=== PATIENT | female | born 2000 | race Caucasian/White ===

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

== ENCOUNTER 2022-04-09 19:21 | Emergency (ER) | payer OTHER ==
--- OUTSIDE RECORDS SUMMARY | 2022-04-09 19:27 | XMS REPORT | Continuity of Care Document ---
:2002 Author Organization Formerly [facility] t Address [address] [place] [address] Care Team Providers Name Role Phone Harrison Grissom Attending Clinician [phone] Faviola Alarcon Attending Clinician Unavailable Matt Urrutia Attending Clinician Unavailable ELIZABETH CAMEJO Attending Clinician Unavailable Paulette Villasenor Attending Clinician Unavailable NANCY SAGASTUME Attending Clinician Unavailable Deann Gonsalves Attending Clinician Unavailable Brandi Nathan Attending Clinician Unavailable Danette Gutierres Attending Clinician Unavailable Danica Britton Attending Clinician [phone] Yeni Jacques Attending Clinician [phone] Mary Alcala Attending Clinician Unavailable Antolin Brown Attending Clinician [phone] ADULT, HEMOPHILIA Attending Clinician Unavailable Status, Fax Attending Clinician Unavailable Sourav Ocampo Attending Clinician Unavailable Sangeeta Mckeon Attending Clinician Unavailable Adriana Donis Attending Clinician Unavailable Tenzin Smiley Attending Clinician Unavailable Carisa Emerson Attending Clinician Unavailable Enma Sanabria Attending Clinician Unavailable Sujey Correia Attending Clinician Unavailable SARAH DOUGLAS M.D. Attending Clinician Unavailable Kenyatta Tolliver Attending Clinician Unavailable Noemi Adkins Attending Clinician [phone] Ricarda Pope Attending Clinician Unavailable Adriana Moya Attending Clinician Unavailable Leandra Hopkins Attending Clinician Unavailable ROSE BEAVERS Attending Clinician Unavailable Luiz Salomon Attending Clinician Unavailable KATRIN FANG M.D. Attending Clinician Unavailable BELLA CHAPMAN Attending Clinician Unavailable SANGEETA ALARCON M.D. Attending Clinician Unavailable ELIZABETH CAMEJO Admitting Clinician Unavailable NANCY SAGASTUME Admitting Clinician Unavailable ROSE BEAVERS Admitting Clinician Unavailable ObYeni swann Jewell Unavailable [phone] Harrison Grissom Unavailable [phone] Problems Condition Condition Condition Status Onset Resolution Last Treating Co mments Source Name Details Category Date Date Treatment Clinician Date Gastroente Condition Active 2020-09-30 Braden Jacques ritis, 09-30 10:02:36 Yeni Krishnan viral, 00:00: Jewell ty acute 00 Health Hypoglycem Condition Active 2020-09-30 Braden Grissom ia, 09-25 09:56:03 Harrison Krishnan unspecifie 00:00: ty d 00 Health Acute Condition Active 2020-09-04 Chris Grissom acy pharyngiti 09-04 12:25:29 Harrison Fink uni s 00:00: ty 00 Health Screening Condition Active 2020-09-04 Braden Grissom for 09-04 12:25:29 Harrison Krishnan infectious 00:00: ty disease 00 Health Headaches Condition Active 2020-09-04 Braden Grissom 09-04 12:25:29 Harrison Krishnan 00:00: ty 00 Health Abnormal Condition Active 2020-08-07 [place] Grissom egacy weight 08-07 14:42:37 Harrison Krishnan gain 00:00: ty 00 Health Back pain Condition Active 2019-062020-04-06 Braden Grissom 06-06 09:30:01 Harrison Krishnan 00:00: ty 00 Health Contracept Condition Active 2019-062020-04-06 GrissomBraden macias ion 02 09:30:01 Harrison Krishnan management 00:00: ty 00 Health Hx of Condition Active 2019-062020-04-06 Praveena, Leg acy ovarian 02 09:30:01 Harrison Krishnan cyst 00:00: ty 00 Health BMI Condition Active 2019-062020-04-06 Praveena, Leg acy 31.0-31.9 0-22 09:26:54 Harrison Pantoja ni 00:00: ty 00 Health Obesity Condition Active 2019-062020-04-06 Praveena [place] 0-22 09:26:54 Harrison Krishnan 00:00: ty 00 Health Menorrhagi Condition Active 2019-062020-03-26 Chris Grissomjefferson a 0-22 20:39:09 Harrison Krishnan 00:00: ty 00 Health Hearing Condition Active 2019-062020-03-26 Grissom, [place] loss, 0-22 20:39:09 Harrison Krishnan right ear 00:00: ty 00 Health Knee pain, Condition Active 2019-062020-03-26 GrissomChris maciasacy right, 0-22 20:39:09 Harrison Krishnan chronic 00:00: ty 00 Health Transfusio Transfusio Problem Resolve UT n history n history d Phys ici ans Iron Iron Problem Active UT deficiency deficiency Ph ysici anemia anemia ans Abnormal Abnormal Problem Active UT uterine uterine Physici bleeding bleeding ans Adolescent Adolescent Problem Active U T dysmenorrh dysmenorrh Ph ysici ea ea ans History of Past Illness Condition Condition Condition Status Onset Resolution Last Treating Co mments Source Name Details Category Date Date Treatment Clinician Date Paronychia Condition Inactiv 2020-09-04 2020-09-04 Braden Grissom , great e 3-11 00:00:00 12:25:29 Harrison Pantoja ni toe 00:00: ty 00 Health Abdominal Condition Inactiv 2020-09-04 2020-09-04 Braden Grissom pain, e 3-05 00:00:00 12:25:29 Harrison Olsen i acute 00:00: ty 00 Health Vomiting Condition Inactiv 2020-08-13 2020-08-13 Braden Grissom e 3-05 00:00:00 16:47:33 Harrison Pretty i 00:00: ty 00 Health Exposure Condition [...] Clinician BLUE DYE Drug Active Low hives Braden allergy Criticali -11 Commun i (disorde ty 00:00: ty r) 00 Health No Known NA Active [facility] 09[facility]: l [facility] ([facility] No Known NA [facility] 21:15: l 13 ([facility]) No Known NA Active [facility] 17:38: l 15 ([facility]) No Known NA [facility] 15:12: l 04 ([facility]) No Known NA Active [facility] 07-17 [facility] 14:08: l 20 ([facility]) No Known NA Active [facility] 07[facility]16 [facility] 22:00: l 58 ([facility]) No Known NA Active [facility] 2-11 [facility] 16:45: l 34 ([facility]) No Known NA Active [facility] 2- [facility]ospita [facility] 15:51: l 27 ([facility]) No Known NA Active [facility] 01-19 [facility]ospita [facility] 12:49: l 23 ([facility]) No Known NA Active [facility] 01-16 [facility]osp[facility] 21:22: l 22 ([facility]) No Known NA Active [facility] 01-16 [facility] 19:26: l 38 ([facility]) No Known NA Active 2019- [facility] 17:11: l 12 ([facility]) Family History Family Member Diagnosis Comments Start Date Stop Date Source Grandparent Family history of [facility] thromboembolic disease aunt Family history of [facility] thromboembolic disease Mother Family history of Bleeding [facility] Social History Social Habit Start Date Stop Date Quantity Comments Source if the patient is 2020-09-30 2020-09-30 No Legacy using/has used a 09:04:08 09:04:08 Communit y vaping item, Health Current, Former, Never Used, Not asked passive cigarette 2020-09-30 2020-09-30 No Legacy smoke exposure 09:04:08 09:04:08 [facility] is there any chance 2020-09-30 2020-09-30 No Legac y that you could be 09:04:08 09:04:08 Communi ty ? Health PHQ2 Questionairre 2020-09-30 2020-09-30 Legacy Score 09:04:08 09:04:08 [facility] sexual orientation 2020-09-30 2020-09-30 Heterosexual Lega cy 09:04:08 09:04:08 [facility] time of call 2020-09-29 2020-09-29 09/29/2020 3:22 PM Lega cy 15:22:32 15:22:32 [facility] albumin, serum 2020-09-24 2020-09-24 4.8 g/dL Legacy 09:21:00 09:21:00 [facility] social history 2020-09-04 2020-09-04 reviewed - no Legacy reviewed E&M 11:10:57 11:10:57 changes required Commun [facility] Health smoking, advice to 2020-04-22 2020-04-22 Yes Legacy quit 08:26:14 08:26:14 [facility] Weight Management 2020-04-22 2020-04-22 Follow Up Done Leg acy Counseling Provided 08:26:14 08[facility]26:[facility] E&M 2020-03-26 2020-03-26 Lives in group Alissa rivas 12:41:26 12:41:26 home ([facility]) with her Health twin sister and younger sister. Ever had sexual 2020-03-26 2020-03-26 No Legacy intercourse? 12:41:26 12:41:26 [facility] drug use 2020-02-14 2020-02-14 Never Legacy 14:28:43 14:28:43 [facility] alcohol use 2020-02-14 2020-02-14 Never Legacy 14:28:43 14:28:43 [facility] patient considered 2020-02-14 2020-02-14 No Legacy to be homeless 14:28:43 14:28:43 [facility] Smoking Status Start Date Stop Date Source Never smoked tobacco (finding) L egacy [facility] Medications Ordered Filled Start Stop Current Ordering Indication Dosage Frequency Signature Comments Components Source Medication Medication Date Date Medication? Clinician (SIG) Name Name (FAMOTIDINE Yes Yeni 1 tab po Legacy ) 20 MG 4-28 Jewell bid for 2 Commu ni TABS 00:00: Obenza weeks as ty 00 needed of Health dyspepsia (FLUTICASON Yes Harrison 2 spray to Legacy E 4-02 Grissom each Communi PROPIONATE) 00:00: nostril ty 50 MCG/ACT 00 once a day Hea lth SUSP (CETIRIZINE Yes Harrison 1 1xD 1 tab by Legacy HCL) 10 MG 4-02 Grissom mouth once Co mmuni TABS 00:00: a day ty 00 Health (ONDANSETRO Yes Yeni 1 tab Leg acy N) 8 MG 3-11 Jewell dissolve Commun i TBDP 00:00: Obenza on tongue ty 00 every 8 Health hours as needed for vomiting (CLONIDINE 2021-0 Yes 1 1xD nightly Lega cy HCL) 0.1 MG 3-11 Communi TABS 00:00: ty 00 Health ZYPREXA Yes 1 1xD take one Legacy (OLANZAPINE 11 tab by Commun i ) 2.5 MG 00:00: mouth once ty TABS 00 a day Health FLUOXETINE Yes 20 mg Legacy HCL 3-11 orally Communi (FLUOXETINE 00:00: once a day ty HCL TABS) 00 Health TABS (OMEPRAZOLE 2020- No Harrison 20mg 1xD 20 mg by Legacy ) 20 MG 08-13 Grissom mouth once [...] 1 tab by Legacy N) 8 MG 0-04-06 Grissom mouth Communi TBDP 00:00: 00:00 every 8 ty 00 :00 hours as Health needed for vomiting Iron 325 Iron 325 Yes SARAH Take one UT (65 Fe) MG (65 Fe) MG 7- BEYDA M.D. tablet by Physici Oral Tablet Oral Tablet 00:00: mouth ans 00 twice a day with food. Do not take with dairy products. Take for total of 6 months MedroxyPROG MedroxyPROG Yes SARAH INJECT UT ESTERone ESTERone 7-29 BEYDA M.D. INTRAMUSCU Physici Acetate 150 Acetate 150 00:00: LARLY ans MG/ML MG/ML 00 DIRECTED. Intramuscul Intramuscul ar ar Suspension Suspension Iron TABS Iron TABS Yes M.D. [facility] ans Immunizations Ordered Immunization Filled Immunization [...] blood pressure, 2020-09-30 09:04:08 75 mm[Hg] Legac y Community diastolic Health blood pressure, 2020-09-30 09:04:08 105 mm[Hg] Legac y Community systolic Health respiratory rate E&M 2020-09-30 09:04:08 20 /min [facility] pulse rate 2020-09-30 09:04:08 104 /min [facility] temperature site 2020-09-30 09:04:08 axillary [facility] Health temperature E&M 2020-09-30 09:04:08 98.1 [degF] Legac [facility] Health weight percentile 2020-09-30 09:04:08 98 Leg [facility] weight in kilograms 2020-09-30 09:04:08 96.7 kg L [facility] E& Health weight E&M 2020-09-30 09:04:08 212.74 [lb_av] [facility] height percentile 2020-09-30 09:04:08 37 Leg [facility] height E&M 2020-09-30 09:04:08 63.39 [in_i] [facility] 2020-08-13 16:05:02 98 /[facility] respiratory rate E&M 2020-08-13 16:05:02 20 /min [facility] temperature E&M 2020-08-13 16:05:02 98.8 [degF] [facility] weight E&M 2020-08-13 16:05:02 210 [lb_av] [facility] weight percentile 2020-08-13 16:05:02 98 [facility] weight in kilograms 2020-08-13 16:05:02 95.45 kg L [facility] E& Health temperature site 2020-08-07 13:09:45 oral [facility] Health pulse rate 2020-08-07 13:09:45 100 /min [facility] blood pressure, 2020-08-07 13:09:45 81 mm[Hg] Legac [facility] diastolic Health blood pressure, 2020-08-07 13:09:45 111 mm[Hg] Legac [facility] systolic Health respiratory rate E&M 2020-08-07 13:09:45 20 /min [facility] temperature E&M 2020-08-07 13:09:45 98.8 [degF] [facility], 2020-08-07 13:09:45 98 /min [facility] oximetry Health height percentile 2020-08-07 13:09:45 37 Leg [facility] Health height E&M 2020-08-07 13:09:45 63.39 [in_i] [facility] weight percentile 2020-08-07 13:09:45 98 Leg [facility] Health weight in kilograms 2020-08-07 13:09:45 96.1 kg L [facility] E& Health weight E&M 2020-08-07 13:09:45 211.42 [lb_av] [facility] Health temperature E&M 2020-06-02 08:35:53 97.2 [degF] [facility] temperature E&M 2020-04-22 08:26:14 97.1 [degF] [facility] temperature [facility] 2020-04-22 08:26:14 [facility] 2020-04-13 08:40:49 97.8 [degF] [facility] height percentile 2020-04-06 08:58:16 37 Leg [facility] Health height E&M 2020-04-06 08:58:16 63.39 [in_i] [facility] weight percentile 2020-04-06 08:58:16 96 Leg [facility] weight in kilograms 2020-04-06 08:58:16 82.8 kg L [facility] E& Health weight E&M 2020-04-06 08:58:16 182.16 [lb_av] [facility] blood pressure, 2020-04-06 08:58:16 77 mm[Hg] [facility] diastolic Health blood pressure, 2020-04-06 08:58:16 119 mm[Hg] [facility] systolic Health oxygen saturation, 2020-04-06 08:58:16 98 /min Le [facility] oximetry Health respiratory rate E&M 2020-04-06 08:58:16 20 /min [facility] Health pulse rate 2020-04-06 08:58:16 106 /min [facility] C [facility] Health temperature E&M 2020-04-06 08:58:16 98.5 [degF] [facility] temperature site 2020-04-06 08:58:16 oral [facility] Health pulse rate 2020-03-26 12:41:26 115 /min [facility] blood pressure, 2020-03-26 12:41:26 68 mm[Hg] [facility] diastolic Health blood pressure, 2020-03-26 12:41:26 104 mm[Hg] [facility] systolic Health respiratory rate E&M 2020-03-26 12:41:26 20 /min [facility] oxygen saturation, 2020-03-26 12:41:26 97 /min [facility] oximetry Health temperature E&M 2020-03-26 12:41:26 98.5 [degF] [facility] height percentile 2020-03-26 12:41:26 21 [facility] height E&M 2020-03-26 12:41:26 62.20 [in_i] [facility] weight percentile 2020-03-26 12:41:26 94 [facility] weight in kilograms 2020-03-26 12:41:26 78.8 kg L [facility] E& Health weight E&M 2020-03-26 12:41:26 173.36 [lb_av] [facility] temperature site 2020-03-26 12:41:[address] [facility] [address] Procedures Procedure Date / Time Performing Clinician Source Performed Urinalysis - Dip only - 2020-10-08 01:42:26 Yeni Jacques [facility] Urinalysis - - 2020-09-30 09:18:47 Yeni Jacques [facility] Urinalysis - - 2020-08-13 16:47:28 Harrison Grissom [facility] Health Ondansetron (Zofran) 2020-08-07 13:43:43 Harrison Grissom [facility] oral soln Health Urinalysis - - 2020-08-07 13:20:09 Harrison Grissom acy [facility] Health Urinalysis - Dip only - 2020-08-07 13:20:09 Harrison Grissom cy [facility] [Q] MISCELLANEOUS 2020-05-05 00:00:00 [facility] ans REFERRAL Urinalysis - - 2020-04-06 09:53:44 Harrison Grissomy [facility] General Patient 2020-04-06 09:26:54 Harrison Grissom [facility] Urinalysis - - 2020-04-06 09:17:48 Harrison Grissom [facility] Rapid Strep - In House 2020-03-26 13:39:47 Praveena Harrisonshanthi Lorenzo [facility] Ondansetron (Zofran) 2020-03-26 13:39:47 Harrison Grissom [facility] oral soln Health BLOOD COUNT HEMOGLOBIN 2020-03-26 13:37:20 GrissomHarrison macias Bj [facility] [L] PFA Platelet 2020-01-01 00:00:00 [facility] ns Function [QL] CBC (INCLUDES 2020-01-01 00:00:00 [facility] DIFF/PLT) [L] von Willebrand 2020-01-01 00:00:00 [facility] Disease Profile [QL] COAG FACTOR VIII 2020-01-01 00:00:00 [facility] ACTIVITY [L] PT Mixing Studies 2020-01-01 00:00:00 [facility] [L] PTT LA 2020-01-01 00:00:00 [facility] s [QL] FIBRINOGEN 2020-01-01 00:00:00 [facility] ACTIVITY, CLAUSS Plan of Care Planned Activity Planned Date Details Comments Source Future Scheduled Test 2020-05-13 [Q] MISCELLANEOUS [facility] 00:00:00 REFERRAL [code = [Q] MISCELLANEOUS REFERRAL] Future Scheduled Test 2020-05-13 [Q] MISCELLANEOUS [facility] 00:00:00 REFERRAL [code = [Q] MISCELLANEOUS REFERRAL] Diagnostic Test 2020-01-01 [QL] FIBRINOGEN [facility] Pending 00:00:00 ACTIVITY, CLAUSS [code = [QL] FIBRINOGEN ACTIVITY, CLAUSS] Diagnostic Test 2020-01-01 [L] PFA Platelet [facility] Pending 00:00:00 Function [code = [L] PFA Platelet Function] Diagnostic Test 2020-01-01 [QL] CBC (INCLUDES [facility] Pending 00:00:00 DIFF/PLT) [code = [QL] CBC (INCLUDES DIFF/PLT)] Diagnostic Test 2020-01-01 [L] von Willebrand [facility] Pending 00:00:00 Disease Profile [code = [L] von Willebrand Disease Profile] Diagnostic Test 2020-01-01 [QL] COAG FACTOR VIII [facility] Pending 00:00:00 ACTIVITY [code = [QL] COAG FACTOR VIII ACTIVITY] Diagnostic Test 2020-01-01 [L] PT Mixing Studies [facility] Pending 00:00:00 [code = [L] PT Mixing Studies] Diagnostic Test 2020-01-01 [L] PTT LA [code = [L] [facility] Pending 00:00:00 PTT LA] Diagnostic Test 2020-01-01 [QL] FIBRINOGEN [facility] Pending 00:00:00 ACTIVITY, CLAUSS [code = [QL] FIBRINOGEN ACTIVITY, CLAUSS] Diagnostic Test 2020-01-01 [L] PFA Platelet [facility] Pending 00:00:00 Function [code = [L] PFA Platelet Function] Diagnostic Test 2020-01-01 [QL] CBC (INCLUDES [facility] Pending 00:00:00 DIFF/PLT) [code = [QL] CBC (INCLUDES DIFF/PLT)] Diagnostic Test 2020-01-01 [L] von Willebrand [facility] Pending 00:00:00 Disease Profile [code = [L] von Willebrand Disease Profile] Diagnostic Test 2020-01-01 [QL] COAG FACTOR VIII [facility] Pending 00:00:00 ACTIVITY [code = [QL] COAG FACTOR VIII ACTIVITY] Diagnostic Test 2020-01-01 [L] PT Mixing Studies [facility] Pending 00:00:00 [code = [L] PT Mixing Studies] Diagnostic Test 2020-01-01 [L] PTT LA [code = [L] [facility] Pending 00:00:00 PTT LA] Diagnostic Test 2020-01-01 [QL] FIBRINOGEN [facility] Pending 00:00:00 ACTIVITY, CLAUSS [code = [QL] FIBRINOGEN ACTIVITY, CLAUSS] Diagnostic Test 2020-01-01 [L] PFA Platelet [facility] Pending 00:00:00 Function [code = [L] PFA Platelet Function] Diagnostic Test 2020-01-01 [QL] CBC (INCLUDES [facility] Pending 00:00:00 DIFF/PLT) [code = [QL] CBC (INCLUDES DIFF/PLT)] Diagnostic Test 2020-01-01 [L] von Willebrand [facility] Pending 00:00:00 Disease Profile [code = [L] von Willebrand Disease Profile] Diagnostic Test 2020-01-01 [QL] COAG FACTOR VIII [facility] Pending 00:00:00 ACTIVITY [code = [QL] COAG FACTOR VIII ACTIVITY] Diagnostic Test 2020-01-01 [L] PT Mixing Studies [facility] Pending 00:00:00 [code = [L] PT Mixing Studies] Diagnostic Test 2020-01-01 [L] PTT LA [code = [L] [facility] Pending 00:00:00 PTT LA] Diagnostic Test 2020-01-01 [QL] FIBRINOGEN [facility] Pending 00:00:00 ACTIVITY, CLAUSS [code = [QL] FIBRINOGEN ACTIVITY, CLAUSS] Diagnostic Test 2020-01-01 [L] PFA Platelet [facility] Pending 00:00:00 Function [code = [L] PFA Platelet Function] Diagnostic Test 2020-01-01 [QL] CBC (INCLUDES [facility] Pending 00:00:00 DIFF/PLT) [code = [QL] CBC (INCLUDES DIFF/PLT)] Diagnostic Test 2020-01-01 [L] von Willebrand [facility] Pending 00:00:00 Disease Profile [code = [L] von Willebrand Disease Profile] Diagnostic Test 2020-01-01 [QL] COAG FACTOR VIII [facility] Pending 00:00:00 ACTIVITY [code = [QL] COAG FACTOR VIII ACTIVITY] Diagnostic Test 2020-01-01 [L] PT Mixing Studies [facility] Pending 00:00:00 [code = [L] PT Mixing Studies] Diagnostic Test 2020-01-01 [L] PTT LA [code = [L] [facility] Pending 00:00:00 PTT LA] Encounters Start End Encounter Admission Attending Care Care Encounter Source Date/Time Date/Time Type Type Clinicians Facility Department ID 2020-09-04 2020-09-04 Office Harrison Grissom [facility] Enco unter/ Legacy 00:00:00 00:00:00 Visit Faviola Alarcon 19 [id number] Matt Avelar [id number] [facility] 2020-08-07 2020-08-07 Emergency HO, [facility] QER [id number] [id number]- [facility] 15:11:00 15:11:00 [id number] Hospi ta l ([facility]) 2020-08-07 2020-08-07 Office PraveenaPIERCE LC Encounter/ Legacy 00:00:00 00:00:00 Visit Harrison [id number] Com abdirahman [id number] ty Health 2020-08-07 2020-08-07 Office PraveenaGARRY LC Encounter/ Legacy 00:00:00 00:00:00 Visit Harrison [id number] Com abdirahman [id number] ty Health 2020-08-07 2020-08-07 [facility] 00:00:00 00:00:00 Visit Paulette Villasenor [id number] Communi [id number] [facility] 2020-07-16 2020-07-16 Emergency NANCY SAGASTUME AL[facility] [id number]- [facility] 15:51:00 15:51:00 [id number] Hospi ta l ([facility]) 2020-07-16 2020-07-16 Office [facility] Legacy 00:00:00 00:00:00 Visit Deann Gonsalves [id number] Brandi Vargas [id number] [facility] 2020-06-04 2020-06-04 Office GARRY Britton Encounter/ Legacy 00:00:00 00:00:00 Visit Danica [id number] Com abdirahman [id number] [facility] 2020-06-02 2020-06-02 Office Yeni Jacques LC Encounter/ Legacy 00:00:00 00:00:00 Visit Danica Britton [id number] Communi [id number] [facility] 2020-06-02 2020-06-02 Office GARRY Grissom LC Encounter/ Legacy 00:00:00 00:00:00 Visit Harrison [id number] Com abdirahman [id number] [facility] 2020-06-02 2020-06-02 Office Yeni Jacques [facility] Encounter/ Legacy 00:00:00 00:00:00 Visit Danica Britton [id number] 57 Mary Fenton [id number] [facility] 2020-06-02 2020-06-02 [facility] 00:00:00 00:00:00 Visit Danica [id number] Com abdirahman [id number] ty Health 2020-05-18 2020-05-18 Office Abu Sulb, [facility] Encounte r/ Legacy 00:00:00 00:00:00 Visit mad [id number] Com abdirahman [id number] Health 2020-05-13 2020-05-13 Appointmen ADULT, UTP UTP [id number] UT 10:00:00 10:00:00 t; ADULT, HEMOPHILIA P hysici HEMOPHILIA ans 2020-05-13 2020-05-13 Office Status, Fax [facility] Encoun ter/ Legacy 00:00:00 00:00:00 Visit [id number] Com abdirahman [id number] ty Health 2020-05-13 2020-05-13 Office Status, Fax [facility] Encoun ter/ Legacy 00:00:00 00:00:00 Visit [id number] Com abdirahman [id number] ty Health 2020-05-13 2020-05-13 Office Status, Fax [facility] Encoun ter/ Legacy 00:00:00 00:00:00 Visit [id number] Com abdirahman [id number] ty Health 2020-05-13 2020-05-13 Office Status, Fax [facility] Encoun ter/ Legacy 00:00:00 00:00:00 Visit [id number] Com abdirahman [id number] ty Health 2020-05-13 2020-05-13 Office Status, Fax [facility] Encoun ter/ Legacy 00:00:00 00:00:00 Visit [id number] Com abdirahman [id number] ty Health 2020-04-27 2020-04-27 Office Abu Sulb, [facility] Encounte r/ Legacy 00:00:00 00:00:00 Visit Ahmad [id number] Com abdirahman [id number] ty Health 2020-04-22 2020-04-22 Office Abu Sulb, [facility] Encounte r/ Legacy 00:00:00 00:00:00 Visit Antolin [id number] Com abdirahman [id number] Health 2020-04-22 2020-04-22 Office Abu Sulb, [facility] En counter/ Legacy 00:00:00 00:00:00 Visit Sourav Ocampo [id number] Mary Fenton 692466 ty Health 2020-04-22 2020-04-22 Office GARRY Britton Encounter/ Legacy 00:00:00 00:00:00 Visit Danica [id number] Com abdirahman 674363 ty Health 2020-04-20 2020-04-20 Office GARRY Brown Encounte r/ Legacy 00:00:00 00:00:00 Visit Antolin [id number] Com abdirahman 978871 ty Health 2020-04-15 2020-04-15 Office GARRY Grissom Encounter/ Legacy 00:00:00 00:00:00 Visit Harrison [id number] Com abdirahman 000405 ty Health 2020-04-15 2020-04-15 Office GARRY Britton Encounter/ Legacy 00:00:00 00:00:00 Visit Danica [id number] Com abdirahman 326881 ty Health 2020-04-14 2020-04-14 Office GARRY Grissom Encounter/ Legacy 00:00:00 00:00:00 Visit Harrison [id number] Com abdirahman 437830 ty Health 2020-04-13 2020-04-13 Office GARRY Grissom Encounter/ Legacy 00:00:00 00:00:00 Visit Harrison [id number] Com abdirahman 596164 ty Health 2020-04-13 2020-04-13 Office Harrison Grissom Enco unter/ Legacy 00:00:00 00:00:00 Visit Danica Britton [id number] Communi 642461 ty Health 2020-04-13 2020-04-13 Office GARRY Grissom Encounter/ Legacy 00:00:00 00:00:00 Visit Harrison [id number] Com abdirahman 690833 ty Health 2020-04-09 2020-04-09 Office GARRY Grissom Encounter/ Legacy 00:00:00 00:00:00 Visit Harrison [id number] Com abdirahman 220337 ty Health 2020-04-06 2020-04-06 Office GARRY Grissom Encounter/ Legacy 00:00:00 00:00:00 Visit Harrison [id number] Com abdirahman 574847 ty Health 2020-04-06 2020-04-06 Office Grissom, LC LC Encounter/ Legacy 00:00:00 00:00:00 Visit Harrison [id number] Com abdirahman 118759 ty Health 2020-04-06 2020-04-06 Office Grissom, LC LC Encounter/ Legacy 00:00:00 00:00:00 Visit Harrison [id number] Com abdirahman 925411 ty Health 2020-04-06 2020-04-06 Office Grissom, LC LC Encounter/ Legacy 00:00:00 00:00:00 Visit Harrison [id number] Com abdirahman 144339 ty Health 2020-04-06 2020-04-06 [facility]co unter/ Legacy 00:00:00 00:00:00 Visit Sangeeta Mckeon [id number] Adriana Goodwin 501342 ty [facility] 2020-04-06 2020-04-06 Office Grissom, LC LC Encounter/ Legacy 00:00:00 00:00:00 Visit Harrison [id number] Com abdirahman 654512 ty Health 2020-04-06 2020-04-06 Office Praveena, LC LC Encounter/ Legacy 00:00:00 00:00:00 Visit Harrison [id number] Com abdirahman 716199 ty Health 2020-03-31 2020-03-31 Office Danette Gutierres Mello LC Encounter/ Legacy 00:00:00 00:00:00 Visit Deann Gonsalves [id number] Brandi Vargas 953175 ty Carisa [facility] 2020-03-30 2020-03-30 Office Grissom, PIERCE LC Encounter/ Legacy 00:00:00 00:00:00 Visit Harrison [id number] Com abdirahman 342985 ty Health 2020-03-30 2020-03-30 Office GrissomHarrison LC Enco unter/ Legacy 00:00:00 00:00:00 Visit Enma Sanabria [id number] [facility] Danette Gutierres 52612 0 ty Health 2020-03-28 2020-03-28 Office Grissom, L[facility] Encounter/ Legacy 00:00:00 00:00:00 Visit Harrison [id number] Com abdirahman 566276 ty Health 2020-03-27 2020-03-27 Office Grissom, L[facility] Encounter/ Legacy 00:00:00 00:00:00 Visit Harrison [id number] Com abdirahman 743796 ty Health 2020-03-27 2020-03-27 Office Grissom, L[facility] Encounter/ Legacy 00:00:00 00:00:00 Visit Harrison [id number] Com abdirahman 679661 ty Health 2020-03-27 2020-03-27 Office Grissom, L[facility] Encounter/ Legacy 00:00:00 00:00:00 Visit Harrison [id number] Com abdirahman 413296 ty Health 2020-03-26 2020-03-26 Office Grissom, LC [facility] Encounter/ Legacy 00:00:00 00:00:00 Visit Harrison [id number] Com abdirahman 403940 ty Health 2020-03-26 2020-03-26 Office Grissom, Harrison LC LC Enco unter/ Legacy 00:00:00 00:00:00 Visit Sangeeta Mckeon [id number] Sujey Aguillon 789729 ty Health 2020-03-26 2020-03-26 Office Grissom, L[facility] Encounter/ Legacy 00:00:00 00:00:00 Visit Harrison [id number] Com abdirahman 081718 ty Health 2020-03-26 2020-03-26 Office Grissom, L[facility] Encounter/ Legacy 00:00:00 00:00:00 Visit Harrison [id number] Com abdirahman 489305 ty Health 2020-03-26 2020-03-26 Office Grissom, L[facility] Encounter/ Legacy 00:00:00 00:00:00 Visit Harrison [id number] Com abdirahman 194294 ty Health 2020-03-24 2020-03-24 Appointjose antonio DOUGLAS [facility] [id number] [place] 15:00:00 15:00:00 t; SARAH DOUGLAS, [facility] sici SARAHHaylie MCMANUS M.D. [facility] 2020-03-19 2020-03-19 Appointmen LORI DOUGLAS [facility] [id number] [place] 14:00:00 14:00:00 t; SARAH DOUGLAS Phy sici REBECCA, M.D. ans M.D. 2020-02-21 2020-02-21 Office Kenyatta Tolliver [facility] En counter/ Legacy 00:00:00 00:00:00 Visit Noemi Adkins [id number] [facility] Ricarda Pope [id number] Health 2020-02-19 2020-02-19 Office [facility] Encounter/ Legacy 00:00:00 00:00:00 Visit Noemi [id number] Com abdirahman 684682 Health 2020-02-14 2020-02-14 Office Noemi Adkins [facility] En counter/ Legacy 00:00:00 00:00:00 Visit Adriana Moya [id number] Communi [id number] Health 2020-02-14 2020-02-14 Office Kellie [facility] Encounter/ Legacy 00:00:00 00:00:00 Visit Leandra [id number] Karen ommuni [id number] [facility] 2020-01-17 2020-01-17 Emergency RUTHANN ALPA [facility] [id number] [address] [place] [address] 17:10:00 17:10:00 ROSE [id number] Hospi ta l (Beaupr nt) 2020-01-11 2020-01-11 Office Aime [facility] Encounter / Legacy 00:00:00 00:00:00 Visit Luiz [id number] Co mmuni [id number] Health 2020-01-11 2020-01-11 Office Praveena [facility] Encounter/ Legacy 00:00:00 00:00:00 Visit Harrison [id number] Com abdirahman [id number] [facility] 2019-12-31 2019-12-31 Appointmen LORI FANG [facility] [id number] [place] 11:00:00 11:00:00 t; KATRIN FANG M.D. Primary P Haylie Broussard - ans [facility] 2018-09-21 2018-09-21 Appointjose antonio CHAPMAN [facility] UTP [id number] [place] 14:30:00 14:30:00 t; ADELA BELLA satnam BELLA [facility] 2018-05-23 2018-05-23 LORI Lo [facility] [id number] [place] 13:30:00 13:30:00 t; SANGEETA ALARCON Phys ici NEETHU, M.D. ans M.D. 2018-04-11 2018-04-11 Mago DORIAN, [facility] UTP [id number] [place] 14:00:00 14:00:00 t; SANGEETA ALARCON Phys ici NEETHU, M.D. ans M.D. 2018-04-11 2018-04-11 Mago DORIAN, [facility] UTP [id number] [place] 14:00:00 14:00:00 t; SANGEETA ALARCON Phys ici NEETHU, M.D. ans M.D. Results Test Description Test Time Test Comments Results Result Comments Source glucose, urine, semiquantitative 2020-09-30 09:04:08 Test Item Value Reference Range Interpretation Comme nts glucose, urine, semiquantitative (test code = 5792-7) negative [facility], [id number] 09:04:08 Test Item Value Reference Range Interpretation Comments specific gravity, urine 1.020 (unknown unit) (test code = 5811-5) [facility] Rexprotein, urine, semiquantitative (dipstick)2020-09-30 09:04:08 Test Item Value Reference Range Interpretation Comments protein, urine, semiquantitative negative (dipstick) (test code = 1753-3) [facility] Rexleukocyte esterase, urine, by gjqvnsmn5146-97-45 09:04:08 Test Item Value Reference Range Interpretation Comments leukocyte esterase, urine, by negative dipstick (test code = 5799-2) [facility] Healthbilirubin, jzmdz1352-67-23 09:04:08 Test Item Value Reference Range Interpretation Comments bilirubin, urine (test code = negative 5770-3) [facility] Rexblood in urine (hemoglobin) by kvyytple0354-41-48 09:04:08 Test Item Value Reference Range Interpretation Comments blood in urine (hemoglobin) by negative dipstick (test code = 4998) [facility] Rexurobilinogen, urine, semiquantitative (dipstick) 2020-09-30 09:04:08 Test Item Value Reference Range Interpretation Comments urobilinogen, urine, negative semiquantitative (dipstick) (test code = 5818-0) [facility] Rexappearance, ofvyu7957-45-33 09:04:08 Test Item Value Reference Range Interpretation Comments appearance, urine (test code = 5767-9) clear [facility] Rexketones, urine, by test kfqce2821-83-69 09:04:08 Test Item Value Reference Range Interpretation Comments ketones, urine, by test strip (test negative code = 5797-6) [facility] RexpH, urine, lsinmtsvcquldhlk5340-36-20 09:04:08 Test Item Value Reference Range Interpretation Comments pH, urine, semiquantitative 7.0 (unknown (test code = 5803-2) unit) [facility] Rexnitrite, urine, ytfqyaiwuwgfoeuc0739-93-35 09:04:08 Test Item Value Reference Range Interpretation Comments nitrite, urine, semiquantitative negative (test code = 5802-4) [facility] Healthurine rznut9350-22-72 09:04:08 Test Item Value Reference Range Interpretation Comments urine color (test code = 5778-6) yellow [facility] Rexbeta HCG, urine, qkeaqcjzhtxtlmie6845-10-51 09:04:08 Test Item Value Reference Range Interpretation Comments beta HCG, urine, semiquantitative negative (test code = 2106-3) [facility] Rexthyroid stimulating hormone, vizcc1887-69-46 09:21:00 Test Item Value Reference Range Interpretation Comments thyroid stimulating hormone, 2.040 u[IU]/mL 0.450-4.500 serum (test code = 3016-3) [facility] RexHIV-CMIA (Chemiluminescent Microparticle Immuno Assay) 2020-09-24 09:21:00 Test Item Value Reference Range Interpretation Comments HIV-CMIA (Chemiluminescent Non Reactive Non Reactive Microparticle Immuno Assay) (test code = 883544) [facility] Rexhemoglobin A1C, blood, as % of total wigfvxmsuy1370-72-90 09:21:00 Test Item Value Reference Range Interpretation Comments hemoglobin A1C, blood, as % of total 4.9 % 4.8-5.6 hemoglobin (test code = 4548-4) [facility] RexLDL cholesterol, vczco5955-68-93 09:21:00 Test Item Value Reference Range Interpretation Comments LDL cholesterol, serum (test code = 147 mg/dL 0-109 H 2088-06) [facility] Rexvery low density cbprvhgcmtsh7801-38-10 09:21:00 Test Item Value Reference Range Interpretation Comments very low density lipoproteins (test 33 mg/dL 5-40 code = 2090-7) [facility] RexHDL cholesterol, qqcmt4877-08-45 09:21:00 Test Item Value Reference Range Interpretation Comments HDL cholesterol, serum (test code = 39 mg/dL >39 L 2085-02) [facility] Rextriglyceride, serum, hauiydz0273-24-96 09:21:00 Test Item Value Reference Range Interpretation Comments triglyceride, serum, fasting (test 182 mg/dL 0-89 H code = 2571-8) [facility] Rexcholesterol, gprtx4264-64-52 09:21:00 Test Item Value Reference Range Interpretation Comments cholesterol, serum (test code = 219 mg/dL 100-169 H 2092-08) [facility] Rexalanine aminotransferase (SGPT), tnaeg1927-20-67 09:21:00 Test Item Value Reference Range Interpretation Comments alanine aminotransferase (SGPT), serum 24 1/L 0-32 (test code = 1742-6) [facility] Rexaspartate aminotransferase (SGOT), scpmh0999-17-51 09:21:00 Test Item Value Reference Range Interpretation Comments aspartate aminotransferase (SGOT), 33 1/L 0-40 serum (test code = 1920-8) [facility] Rexalkaline phosphatase, jjuei4337-77-47 09:21:00 Test Item Value Reference Range Interpretation Comments alkaline phosphatase, serum (test 162 1/L 43-101 H code = 1783-0) [facility] Rexbilirubin, serum, omexj8699-00-40 09:21:00 Test Item Value Reference Range Interpretation Comments bilirubin, serum, total (test code 0.4 mg/dL 0.0-1.2 = 1974-07) [facility] Rexalbumin/globulin ratio, piyrs3119-60-05 09:21:00 Test Item Value Reference Range Interpretation Comments albumin/globulin ratio, 1.9 (unknown unit) 1.2-2.2 serum (test code = 1759-0) [facility] Healthglobulin, ukqxr8606-29-00 09:21:00 Test Item Value Reference Range Interpretation Comments globulin, serum (test code 2.5 (unknown unit) 1.5-4.5 = 2336-6) [facility] Healthalbumin, zzrkb5978-35-59 09:21:00 Test Item Value Reference Range Interpretation Comments albumin, serum (test code = 1751-7) 4.8 g/dL 3.9-5.0 [facility] Healthprotein, total, nsnhx0251-88-11 09:21:00 Test Item Value Reference Range Interpretation Comments protein, total, serum (test code = 7.3 g/dL 6.0-8.5 2885-2) [facility] Rexcalcium, lrawp1826-90-48 09:21:00 Test Item Value Reference Range Interpretation Comments calcium, serum (test code = 10.0 mg/dL 8.7-10.2 1999-) [facility] Rexcarbon dioxide, venous ddbnu9380-23-14 09:21:00 Test Item Value Reference Range Interpretation Comments carbon dioxide, venous blood (test 21 mmol/L code = 7-1) [facility] Rexchloride, czsmw3492-71-33 09:21:00 Test Item Value Reference Range Interpretation Comments chloride, serum (test code = 100 mmol/L 96-106 5-0) [facility] Rexpotassium, mfodk1925-31-81 09:21:00 Test Item Value Reference Range Interpretation Comments potassium, serum (test code = 4.6 mmol/L 3.5-5.2 2823-3) [facility] Rexsodium, hnmbc9037-03-67 09:21:00 Test Item Value Reference Range Interpretation Comments sodium, serum (test code = 2951-2) 139 mmol/L 134-144 [facility] Rexurea nitrogen/creatinine ratio, fytyy2454-18-37 09:21:00 Test Item Value Reference Range Interpretation Comments urea nitrogen/creatinine 13 (unknown unit) 9-23 ratio, serum (test code = 3097-3) [facility] HealtheGFR if Buxinnck6375-67-44 09:21:00 Test Item Value Reference Range Interpretation Comments eGFR if 112 mL/min/{1.73 m2} >59 (test code = 79269-1) [facility] RexEstimated Glomerular Filtration Rate (calc)2020-09-24 09:21:00 Test Item Value Reference Range Interpretation Comments Estimated Glomerular 98 mL/min/{1.73 m2} >59 Filtration Rate (calc) (test code = 36126-9) [facility] Rexcreatinine, zwush7024-83-41 09:21:00 Test Item Value Reference Range Interpretation Comments creatinine, serum (test code = 0.87 mg/dL 0.57-1.00 2160-0) [facility] Rexurea nitrogen, ftluu5408-83-61 09:21:00 Test Item Value Reference Range Interpretation Comments urea nitrogen, blood (test code = 11 mg/dL 6-20 3094-0) [facility] Rexblood glucose, aammdg6770-35-87 09:21:00 Test Item Value Reference Range Interpretation Comments blood glucose, random (test code = 83 mg/dL 65-99 2339-0) [facility] Reximmature granulocytes, percentage of total cells, blood 2020-09-24 09:21:00 Test Item Value Reference Range Interpretation Comments immature granulocytes, percentage of 0 % total cells, blood (test code = 46361-1) [facility] Rexbasophil count, fthxivae2972-89-54 09:21:00 Test Item Value Reference Range Interpretation Comments basophil count, absolute (test 0.0 x10E3/uL 0.0-0.2 code = 95517-2) [facility] RexEosinophil Absolute Mgjci1457-23-46 09:21:00 Test Item Value Reference Range Interpretation Comments Eosinophil Absolute Count (test 0.4 X10E3/UL 0.0-0.4 code = 36230-7) [facility] Rexmonocyte count, blood, ibdwublcm0143-20-47 09:21:00 Test Item Value Reference Range Interpretation Comments monocyte count, blood, automated 0.4 X10E3/UL 0.1-0.9 (test code = 742-7) [facility] Rexlymphocyte count, blood, tvcviknzm6961-50-50 09:21:00 Test Item Value Reference Range Interpretation Comments lymphocyte count, blood, 2.1 X10E3/UL 0.7-3.1 automated (test code = 731-0) [facility] RexAbsolute Flxzsvhtyrw4340-72-41 09:21:00 Test Item Value Reference Range Interpretation Comments Absolute Neutrophils (test code 3.0 X10E3/UL 1.4-7.0 = 38399-8) [facility] Rexbasophils as percent of blood xyoyqjzdlz7192-79-13 09:21:00 Test Item Value Reference Range Interpretation Comments basophils as percent of blood 1 % leukocytes (test code = 707-0) [facility] Rexeosinophils as percent of blood jsmlxcrcbk7161-77-75 09:21:00 Test Item Value Reference Range Interpretation Comments eosinophils as percent of blood 7 % leukocytes (test code = 713-8) [facility] Healthmonocytes as percent of blood exetwwbwkz3106-11-69 09:21:00 Test Item Value Reference Range Interpretation Comments monocytes as percent of blood 7 % leukocytes (test code = 5905-5) [facility] Rexlymphocytes as percent of blood qsoaswdvtu3337-49-96 09:21:00 Test Item Value Reference Range Interpretation Comments lymphocytes as percent of blood 35 % leukocytes (test code = 736-9) [facility] Rexneutrophils as percent of blood znshnsnjqa1187-52-40 09:21:00 Test Item Value Reference Range Interpretation Comments neutrophils as percent of blood 50 % leukocytes (test code = 770-8) [facility] Rexplatelet borky2819-86-14 09:21:00 Test Item Value Reference Range Interpretation Comments platelet count (test code = 307 X10E3/UL 150-450 777-3) [facility] Rexred blood cell distribution zovoc2875-65-23 09:21:00 Test Item Value Reference Range Interpretation Comments red blood cell distribution width 13.3 % 11.7-15.4 (test code = 788-0) [facility] Rexmean corpuscular hemoglobin concentration, [id number] 09:21:00 Test Item Value Reference Range Interpretation Comments mean corpuscular hemoglobin 33.9 G/DL 31.5-35.7 concentration, RBC (test code = 786-4) [facility] Rexmean corpuscular hemoglobin, [id number] 09:21:00 Test Item Value Reference Range Interpretation Comments mean corpuscular hemoglobin, RBC 28.9 pg 26.6-33.0 (test code = 785-6) [facility] Rexmean corpuscular volume, [id number] 09:21:00 Test Item Value Reference Range Interpretation Comments mean corpuscular volume, RBC (test code 85 fL 79-97 = 787-2) [facility] Rexhematocrit, gxdlr8064-80-81 09:21:00 Test Item Value Reference Range Interpretation Comments hematocrit, blood (test code = 4544-3) 45.7 % 34.0-46.6 [facility] Rexhemoglobin, pezwu0230-55-07 09:21:00 Test Item Value Reference Range Interpretation Comments hemoglobin, blood (test code = 15.5 g/dL 11.1-15.9 718-7) [facility] Rexerythrocyte (RBC) [id number] 09:21:00 Test Item Value Reference Range Interpretation Comments erythrocyte (RBC) count (test 5.36 X10E6/UL 3.77-5.28 H code = 789-8) [facility] Rexleukocyte count, rxulc6532-60-03 09:21:00 Test Item Value Reference Range Interpretation Comments leukocyte count, blood (test 6.0 X10E3/UL 3.4-10.8 code = 6690-2) [facility] RexCT ABDOMEN/PELVIS [id number] 20:32:00 [facility] : 2000 Sex: F[address] [id number] IMAGING REPORTPatient Name: Savanna ALARCON of Service: [id number]: 20 Sex: F Order #: [id number] [email or web address]B: 2000 X-Ray Number: [id number] Record Number: [id number] Hospital Number: [id number] Physician: FELIPE CAMEJO Physician: FELIPE CAMEJO SPROCEDURE: CT ABDOMEN/PELVIS WITHINDICATIONS: DX: abd painorder sts: r/o appendicitis pt complains of RLQ abdpain x2 days with N/V/D hx of ovarian cyst, afib, HTN7 min delay included IVIsovue 300 100ml per protocolcreat: .6/GFR:138psv: pdwCT abdomen and pelvis with contrastComparison: 07/16/20Findings:Clear lung bases.Unremarkable gallbladder and bladder. Hepatic steatosis. Nohydronephrosis or nephrolithiasis is. No ovarian lesions. The othersolid organs are unremarkable.No bowel wall thickening or dilation. A normal appendixis identified.Unremarkable vasculature.No lymphadenopathy.No ascites.No acute osseous abnormality.Impression:No acute findings.This document has been electronically signed by: Jennifer Ibarra 08/07/2020 20:31:24Legally authenticated by [facility] ANGELA ZAZUETA 2020-08-07 16:22:00B-HCG QUAL (KIT)2020-08-07 19:33:00 Test Item Value Reference Range Interpretation Comments HCGQUAL (test code = NEGATIVE NEGATIVE URINE: NEGATIVE = < HCGQUAL) 20 mIU/ML; POSI TIVE= >/= 20 mIU/ML S BABAK: NEGATIVE = < 10 mIU/ML; POSITIV E= >/= 10 mIU/ML SOURCE (test code = SERUM SOURCE) HCG INTERNAL POSITIVE PASS PASS CNTRL (test code = HCGIPC) HCG LOT # (test code = [id number] UHCGLOT) HCG EXPIRATION DATE (test code = UHCGEXP) [id number] 19:20:00 Test Item Value Reference Range Interpretation [...] code = UAMICRO) NO HEPATITIS C ANTIBODY [id number] 18:57:00 Test Item Value Reference Range Interpretation [...] re sults will follow. BMP, BASIC METABOLIC [id number] 18:20:00 Test Item Value Reference Range Interpretation [...] glucose = GLUCOSE) normal <100 MG/ DL- [employer] recommendation* * CALCIUM (test code 9.9 MG/DL 8.4-10.2 = CABLOOD) GFR (test code = 138 A GFR of >9 0 GFR) mL/min/1.73m2 mL/min/1.73m2 is considered norm al. The GFR calcula tion on patients ove r 70 years of age is not validated by e contact center director an d may not represent t he patients true r enal function. [id number] 18:20:00 Test Item Value Reference Range Interpretation Comments LIPASE (test code = LIPA) 119 U/L 23-300 LIVER [id number] 18:20:00 Test Item Value Reference Range Interpretation [...] (test code = ALTV) 30 U/L 13-69 [id number] 17:54:00 Test Item Value Reference Range Interpretation [...] code 4.2 K/UL 1.2-7.2 = NEUT) urine teqezbh2568-03-31 14:31:00 Test Item Value Reference Range Interpretation Comments urine culture (test code = 630-4) No growth [facility] Rexbeta HCG, urine, czezrkakcnvrdggf3535-46-70 13:09:45 Test Item Value Reference Range Interpretation Comments beta HCG, urine, semiquantitative negative (test code = 2106-3) [facility] Rexblood in urine (hemoglobin) by tjxxitqq8127-99-45 13:09:45 Test Item Value Reference Range Interpretation Comments blood in urine (hemoglobin) by dipstick 1+ (test code = 4998) [facility] HealthpH, urine, mknzezsjsilztexr9616-85-28 13:09:45 Test Item Value Reference Range Interpretation Comments pH, urine, semiquantitative 5.5 (unknown (test code = 5803-2) unit) [facility] Rexspecific gravity, dyseo2398-48-74 13:09:45 Test Item Value Reference Range Interpretation Comments specific gravity, urine 1.010 (unknown unit) (test code = 5811-5) [facility] Rexglucose, urine, nuhqgfbuugrughyq7865-74-93 13:09:45 Test Item Value Reference Range Interpretation Comments glucose, urine, semiquantitative negative (test code = 5792-7) [facility] Rexbilirubin, jwjpi0548-59-12 13:09:45 Test Item Value Reference Range Interpretation Comments bilirubin, urine (test code = negative 5770-3) [facility] Rexketones, urine, by test [id number] 13:09:45 Test Item Value Reference Range Interpretation Comments ketones, urine, by test strip (test negative code = 5797-6) [facility] Healthprotein, urine, semiquantitative (dipstick)2020-08-07 13:09:45 Test Item Value Reference Range Interpretation Comments protein, urine, semiquantitative negative (dipstick) (test code = 1753-3) [facility] Rexurobilinogen, urine, semiquantitative (dipstick) 2020-08-07 13:09:45 Test Item Value Reference Range Interpretation Comments urobilinogen, urine, negative semiquantitative (dipstick) (test code = 5818-0) [facility] Rexnitrite, urine, adlojnrxkajsamyy0029-27-77 13:09:45 Test Item Value Reference Range Interpretation Comments nitrite, urine, semiquantitative negative (test code = 5802-4) [facility] Rexleukocyte esterase, urine, by dncwvbkx2053-28-72 13:09:45 Test Item Value Reference Range Interpretation Comments leukocyte esterase, urine, by negative dipstick (test code = 5799-2) [facility] Rexappearance, jwono6063-77-12 13:09:45 Test Item Value Reference Range Interpretation Comments appearance, urine (test code = 5767-9) clear [facility] Rexurine [id number] 13:09:45 Test Item Value Reference Range Interpretation Comments urine color (test code = 5778-6) yellow [facility] RexWHOLE BLOOD [id number] 19:05:00 Test Item Value Reference Range Interpretation Comments WHOLE BLOOD GLUCOSE 130 MG/DL 70-99 H Fastin g glucose (test code = POC GLU) normal <100 MG/DL- [employer] recommend ation CT ABDOMEN/PELVIS [id number] 07:03:00 [facility] : 2000 Sex: F[address] [id number] IMAGING REPORTPatient Name: Savanna ALARCON of Service: 30-07-5480Rkg: 20 Sex: F Order #: [id number] [facility] 2000 X-[facility] Number: [id number] Record Number: [id number] Hospital Number: [id number] Physician: TANIKA, ALIOrdering Physician: TALIB MACDONALD abdomen and pelvis.History: Nausea, vomitingTechnique: IV contrast enhanced CT images.Contrast administered for this study per protocol; [id number]-[id number] exam was performed using one or more of the following dosereduction techniques: Automated exposure control, adjustment of the MAand/or KV according to patient size or use of iterative reconstructiontechnique.Comparison: None.Findings:There is a small amount of bibasilar atelectasis.No suspicious liver lesion. The gallbladder, pancreas, spleen and adrenalglands are within normal limits. There is no evidence of hydronephrosis onofre obstructive renal stone. The abdominal aorta is nonaneurysmal.No evidence of acute appendicitis, colitis or diverticulitis. The bladderis unremarkable. The uterus is present. No aggressive appearing osseouslesion. There is a small fat-containing umbilical hernia.Impression:No CT evidence of an acute process in the abdomen or pelvis.ElectronicallySigned By: Shakeel Myrick M.D., 07/17/2020 7:00 AMLegally authenticated by HEATHER MCCABE JR 2020-07-17 07:00:[id number] 19:37:00 Test Item Value Reference Range Interpretation [...] = NEGATIVE NONE BACTERIA) CT HEAD W/O [id number] 19:00:00 [facility] : 2000 Sex: F[address] [id number] IMAGING REPORTPatient Name: Savanna ALARCON of Service: [id number]: 20 Sex: F Order #: [id number] Room:ERSDOB: 2000 X-Ray Number: [id number] Record Number: [id number] Hospital Number: [id number] Physician: Kolby SAGASTUMEing Physician: TALIB MACDONALD Head and Cervical Spine, 07/16/2020 6:41 PMHistory: Trauma with injury. fallComparison: None.Technique: Unenhanced CT imaging of the headand cervical spine. This CTexam was performed using one or more of the following dose reductiontechniques: Automated exposure control, adjustment of the mA and/or KVaccording to patient size, or use ofiterative reconstruction technique.Findings:Head:There is no acute intracranial abnormality. Specifically, there is noevidence of acute hemorrhage, infarct, contusion, hydrocephalus, midlineshift, or abnormal extra-axial collection. The calvarium is intact. Thevisualized paranasal sinuses are unremarkable.Cervical spine:The cervical vertebra maintain normal height and alignment withoutfracture. The prevertebral soft tissues and predental space are normal. Thefacet joints are aligned bilaterally. Theatlantooccipital articulation isnormal bilaterally. The visualized lung barger are clear.Impression:1. No acute intracranial abnormality.2. No fracture or malalignment of the cervical spine.Electronically Signed By: Shakeel Myrick M.D., 07/16/2020 6:57 PMLegally authenticated by HEATHER MCCABE JR 2020-07-16 18:57:54CT C-SPINE W/O [id number] 19:00:00 [facility] : 2000 Sex: F[address] [id number] IMAGING REPORTPatient Name: RICKI ALARCONIgor of Service: [id number]: 20 Sex: F Order #: [id number] [email or web address]B: 2000 X-Ray Number: [id number] Record Number: [id number] Hospital Number: [id number] Physician: Frankie SAGASTUME Physician: TALIB MACDONALD Head and Cervical Spine, 07/16/2020 6:41 PMHistory: Trauma with injury. fallComparison: None.Technique: Unenhanced CT imaging of the headand cervical spine. This CTexam was performed using one or more of the following dose reductiontechniques: Automated exposure control, adjustment of the mA and/or KVaccording to patient size, or use ofiterative reconstruction technique.Findings:Head:There is no acute intracranial abnormality. Specifically, there is noevidence of acute hemorrhage, infarct, contusion, hydrocephalus, midlineshift, or abnormal extra-axial collection. The calvarium is intact. Thevisualized paranasal sinuses are unremarkable.Cervical spine:The cervical vertebra maintain normal height and alignment withoutfracture. The prevertebral soft tissues and predental space are normal. Thefacet joints are aligned bilaterally. Theatlantooccipital articulation isnormal bilaterally. The visualized lung barger are clear.Impression:1. No acute intracranial abnormality.2. No fracture or malalignment of the cervical spine.Electronically Signed By: Shakeel Myrick M.D., 07/16/2020 6:57 PMLegally authenticated by HEATHER MCCABE JR 2020-07-16 18:57:54LIPASE 2020-07-16 17:45:00 Test Item Value Reference Range Interpretation Comments LIPASE (test code = LIPA) 124 U/L 23-300 LIVER [id number] 17:45:00 Test Item Value Reference Range Interpretation [...] (test code = ALTV) 27 U/L 13-69 [id number] 17:07:00 Test Item Value Reference Range Interpretation [...] code 3.4 K/UL 1.2-7.2 = NEUT) ISTAT [id number] 17:00:00 Test Item Value Reference Range Interpretation Comments ISTAT HCG (test <5.0 IU/L A value of l ess than or code = ISHCG) equal to <5 IU /L is considered NEGA TIVE A value between 5 IU/L and 25 IU/L is cons idered INDETERMINATE A value of >25 IU/L is con sidered POSITIVE ISTAT CHEM [id number] 16:50:00 Test Item Value Reference Range Interpretation [...] probe detection (Other Lab) (test code = 09083-7) [facility][Q] S9 PLATELET [id number] 11:00:00 Test Item Value Reference Range Interpretation Comments PLT AGG INTERP Test not Electronic Si gnature Aman (test code = performed (TNP). [facility] 05/13/20 PLT AGG Specimen 15:37 PM INTERP) received in lab. 05/13/2020 01:22 Testing Schedule: Mon-Mon 7AM - 12 N. Testing not done after 12 noon. Notified Liss Carcamo 05/13/2020 15:30 AA 2.5 (test TNP TEST(S) NOT PER FORMED: code = AA 2.5) AA 2.5 AA 5.0 ADP 2.5 ADP 50.0 COLLAG EN 5.0 EPI 11.0 EPI 5. 5 RIS 1.5 RIS .75 TEST NO T PERFORMEDSPECIM EN RECEVIED IN LAB 05/13/2020 AT 1:22PMTESTING S CHDEULE MON-MON 7AM-12N TESTING NOT DONE AFTER 12 NOONNO COLLECTION DATE RECEIVED. WE [place] VE USEDTHE DATE TH E SPECIMEN WAS RE CE[facility] DATE . IF THISIS INCORREC T, PLEASE CONTACT CLIENT SERVICES.PHONE NUMBER: [phone] [place] [id number] (COVID-19) SARS coronavirus 2 RNA (Presence) in Respiratory specimen by IAN with probe detection (Other Lab)2020-04-22 11:48:00 Test Item Value Reference Range Interpretation Comments 2018NCoV (COVID-19) SARS Not Detected Not Detected coronavirus 2 RNA (Presence) in Respiratory specimen by IAN with probe detection (Other Lab) (test code = 90350-4) [facility]2019NCoV (COVID-19) SARS coronavirus 2 RNA (Presence) in Respiratory specimen by IAN with probe detection (Other Lab)2020-04-13 16:13:00 Test Item Value Reference Range Interpretation Comments 2018NCoV (COVID-19) SARS Not Detected Not Detected coronavirus 2 RNA (Presence) in Respiratory specimen by IAN with probe detection (Other Lab) (test code = 98791-5) [facility] Rexurine [id number] 10:46:00 Test Item Value Reference Range Interpretation Comments urine culture (test code = 630-4) [facility]UG [facility]bacteria, urine [id number] 10:46:00 Test Item Value Reference Range Interpretation Comments bacteria, urine microscopy (test None seen None seen/Few code = 5769-5) [facility]mucus on [id number] 10:46:00 Test Item Value Reference Range Interpretation Comments mucus on urinalysis (test code = Present 8247-9) [facility] cells, [id number] 10:46:00 Test Item Value Reference Range Interpretation Comments epithelial cells, urine (test code = >10 0-10 A 5787-7) [facility] RexRBC, [id number] 10:46:00 Test Item Value Reference Range Interpretation Comments RBC, Urine (test code = 85897-0) 0-2 /hpf 0-2 [facility]inalysis, microscopic [id number] 10:46:00 Test Item Value Reference Range Interpretation Comments urinalysis, microscopic See below: examination (test code = 81839-5) [facility] Rexnitrate, [id number] 10:46:00 Test Item Value Reference Range Interpretation Comments nitrate, urine (test code = 49542-5) Negative Negative [facility] Rexurobilinogen, urine, semiquantitative (dipstick) 2020-04-06 10:46:00 Test Item Value Reference Range Interpretation Comments urobilinogen, urine, 0.2 (unknown 0.2-1.0 semiquantitative (dipstick) unit) (test code = 5818-0) [facility]irubin, [id number] 10:46:00 Test Item Value Reference Range Interpretation Comments bilirubin, urine (test code = Negative Negative 5770-3) [facility] Rexketones, urine, by test [id number] 10:46:00 Test Item Value Reference Range Interpretation Comments ketones, urine, by test strip (test Negative Negative code = 5797-6) [facility] Rexglucose, urine, [id number] 10:46:00 Test Item Value Reference Range Interpretation Comments glucose, urine, semiquantitative Negative Negative (test code = 5792-7) [facility]protein, urine, semiquantitative (dipstick)2020-04-06 10:46:00 Test Item Value Reference Range Interpretation Comments protein, urine, semiquantitative Negative Negative/Trace (dipstick) (test code = 1753-3) [facility] Rexleukocyte esterase, urine, by [id number] 10:46:00 Test Item Value Reference Range Interpretation Comments leukocyte esterase, urine, by Negative Negative dipstick (test code = 5799-2) [facility] Rexappearance, [id number] 10:46:00 Test Item Value Reference Range Interpretation Comments appearance, urine (test code = 5767-9) Cloudy Clear A [facility] [id number] 10:46:00 Test Item Value Reference Range Interpretation Comments urine color (test code = 5778-6) Yellow Yellow [facility]H, urine, [id number] 10:46:00 Test Item Value Reference Range Interpretation Comments pH, urine, semiquantitative 5.5 (unknown 5.0-7.5 (test code = 5803-2) unit) [facility] Rexspecific gravity, body [id number] 10:46:00 Test Item Value Reference Range Interpretation Comments specific gravity, body 1.022 (unknown unit) 1.005-1.030 fluid (test code = 2964-5) [facility] RexWBC urine on [id number] 10:46:00 Test Item Value Reference Range Interpretation Comments WBC urine on microscopy (test code = 0-5 /hpf 0-5 1016) [facility] Rexbeta HCG, urine, [id number] 08:58:16 Test Item Value Reference Range Interpretation Comments beta HCG, urine, semiquantitative negative (test code = 2106-3) [facility]2019NCoV (COVID-19) SARS coronavirus 2 RNA (Presence) in Respiratory specimen by IAN with probe detection (Other Lab)2020-03-26 14:00:00 Test Item Value Reference Range Interpretation Comments 2019NCoV (COVID-19) SARS Not Detected Not Detected coronavirus 2 RNA (Presence) in Respiratory specimen by IAN with probe detection (Other Lab) (test code = 53183-9) [facility] RexMicrobial identification kit, rapid strep method 2020-03-26 12:41:26 Test Item Value Reference Range Interpretation Comments Microbial identification kit, rapid negative strep method (test code = 16134-4) [facility] Rexhemoglobin, [id number] 12:41:26 Test Item Value Reference Range Interpretation Comments hemoglobin, blood (test code = 14.8 g/dL 718-7) [facility]2019NCoV (COVID-19) SARS coronavirus 2 RNA (Presence) in Respiratory specimen by IAN with probe detection (Other Lab)2020-02-19 09:08:00 Test Item Value Reference Range Interpretation Comments 2018NCoV (COVID-19) SARS Not Detected Not Detected coronavirus 2 RNA (Presence) in Respiratory specimen by IAN with probe detection (Other Lab) (test code = 80540-9) [facility] RexUS PELVIS NON-OB [id number] 07:32:[address] [id number] IMAGING REPORTPatient Name: BLANCA ALARCONAlphonso of Service: [id number]: 20 Sex: F Order #: [id number] Room: ERSDOB: 2000 X-Ray Number: [id number] Record Number: [id number] Hospital Number: [id number] Physician: ROSE BEAVERSOrdering Physician: MIKE WALKERTransabdominal pelvic ultrasound 01/17/2020History: Vaginal bleeding x1 dayComparison: NoneThe uterus is anteverted measuring 7.3 x 3.8 x 5.4 cm. There is no focalmass. Endometrial thickness is 9 mm without fluid collection.Left ovary is obscured by bowel gas. Right ovary measures 3.1 x 1.6 x 2.3cm and has a normal appearance. Vascular flow isseen in the right ovary.There is no pelvic free fluid. The urinary bladder is incompletelydistended but within normal limits.Impression:Nonvisualized left ovary.No other suspicious acute process.Electronically Signed By: Luciano Shipley M.D., 01/18/2020 7:30 AMLegally authenticated by BIANCA ALVAREZ [id number]:[id number] 20:53:00 Test Item Value Reference Range Interpretation [...] HCGIPC) HCG LOT # (test code = [id number] UHCGLOT) HCG EXPIRATION DATE (test code = UHCGEXP)
[2022-04-09 20:00] LABS: Urine Blood Negative (Negative); Urine Glucose Negative (Negative); Urine Protein Negative (Negative)
[2022-04-09] MEDS ORDERED: KETOROLAC 30 MG/ML INJ ONE (20:09)
[2022-04-09] MEDS ORDERED: ONDANSETRON 4 MG/2 ML VIAL ONE ×2 (20:09→22:24)
[2022-04-09] MEDS ORDERED: NA CHLORIDE 0.9% 1,000 ML ONE (20:09)
[2022-04-09 20:29] LABS: Hematocrit 40.6 % (36.0-45.0); Lymphocytes % 24.5 % (15.3-44.8); MCV 75.7 fL (80-100); MPV 7.4 fL (7.6-11.3); RBC Red Blood Cell Count 5.36 M/uL (3.86-4.86)
--- NOTE | 2022-04-09 20:43 | RAD REPORT ---
EXAM DESCRIPTION: CTStone Protocol - 04/09/2022 8:28 pm CLINICAL HISTORY: pain COMPARISON: Abdomen Pelvis W Contrast dated 08/05/2021; Stone Protocol dated 05/25/2021 TECHNIQUE: CT of the abdomen and pelvis was performed. All CT scans are performed using dose optimization technique as appropriate and may include automated exposure control or mA/KV adjustment according to patient size. FINDINGS: Lower chest: No acute abnormality. Liver: No acute abnormality or suspicious lesions. Biliary: No biliary ductal dilatation. Stomach: No significant focal abnormality. Duodenum: No significant focal abnormality. Pancreas: No significant abnormality. Spleen: No significant abnormality. Adrenal: No suspicious lesions. Kidney/ureter: No hydronephrosis. No renal calculi. Retroperitoneum: No retroperitoneal adenopathy. Vascular: No aneurysm. Bowel: No significant focal abnormality. Normal appendix. Peritoneum: No ascites or free air. Bladder: Mild nonspecific circumferential bladder wall thickening. Reproductive: No adnexal masses. Bones: No acute fracture. Other: n/a IMPRESSION: No acute intra-abdominal or pelvic finding. Specifically, no urinary tract calculi ident ified. Nonspecific bladder wall thickening which could indicate cystitis.
[2022-04-09 20:55] LABS: Albumin 3.4 g/dL (3.4-5.0); Bilirubin Total 0.2 mg/dL (0.2-1.0); Potassium 3.6 mmol/L (3.5-5.1); Protein, Total 6.3 g/dL (6.4-8.2)
[2022-04-09] MEDS ORDERED: HYDROCODONE/APAP 10/325 TAB ONE (21:29)
[2022-04-09 21:50] LABS: Urine Bacteria <20 /HPF (<20); Urine Mucus Slight /HPF (None Seen)
--- NOTE | 2022-04-09 22:14 | EDPHYS ---
Physician Documentation [facility] Name: Samantha Alarcon Age: 22 yrs Sex: Female : 2000 Arrival Date: 04/09/2022 Time: 19:27 Bed 27 Private MD: ED Physician Rafael Andersen HPI: 04/09 22:22 This 22 yrs old Female presents to ER via Ambulatory with complaints of Headache, Back kb Pain, Flank Pain, Vomiting. 22:22 The patient complains of pain in the right flank. The pain does not radiate. The kb patient has experienced similar episodes in the past, a few times. The patient has not recently seen a physician. 22:22 Onset: The symptoms/episode began/occurred 2 day(s) ago. Modifying factors: The kb symptoms are alleviated by nothing. the symptoms are aggravated by nothing. Associated signs and symptoms: Pertinent positives: nausea, vomiting. Severity of pain: At its worst the pain was moderate in the emergency department the pain is unchanged. [employer]PER[employer]: 19:48 LMP 02/17/2022 kb3 Historical: - Allergies: 19:48 No Known Allergies; kb3 - Home Meds: 19:48 None [Active]; kb3 - PMHx: 19:48 Anemia; Ovarian cysts; Migraine; Kidney stone; kb3 - PSHx: 19:48 None; kb3 - Immunization history:: Adult Immunizations up to date, Client reports having NOT received the Covid vaccine. Last tetanus immunization: up to date. - Social history:: Smoking status: Patient denies any tobacco usage or history of. Patient uses street drugs, marijuana. ROS: 22:21 Constitutional: Negative for fever, chills, and weight loss. kb 22:21 Back: Positive for pain at rest, pain with movement, flank pain, on the right. 22:21 All other systems are negative. Exam: 22:21 Constitutional: This is a well developed, well nourished patient who is awake, alert, kb and in no acute distress. Head/Face: Normocephalic, atraumatic. ENT: Moist Mucous membranes Cardiovascular: Regular rate and rhythm with a normal S1 and S2. No gallops, murmurs, or rubs. No pulse deficits. Respiratory: Respirations even and unlabored. No increased work of breathing. Talking in full sentences Abdomen/GI: Soft, non-tender. No distention Skin: Warm, dry with normal turgor. Normal color. MS/ Extremity: Pulses equal, no cyanosis. Neurovascular intact. Full, normal range of motion. Neuro: Awake and alert, GCS 15, oriented to person, place, time, and situation. Moves all extremities. Normal gait. Psych: Awake, alert, with orientation to person, place and time. Behavior, mood, and affect are within normal limits. 22:21 Back: CVA tenderness, that is mild, is noted on the right. 22:21 Constitutional: This is a well developed, well nourished patient who is awake, alert, kb and in no acute distress. Vital Signs: 19:45 BP 135 / 82; Pulse 108; Resp 20; Temp 99.4; Pulse Ox 100% ; Weight 94.35 kg; Height 5 kb3 ft. 4 in. (162.56 cm); Pain 8/10; 21:30 BP 113 / 60; Pulse 97; Resp 20; Pulse Ox 100% on R/A; em6 22:15 BP 115 / 79; Pulse 88; Resp 18; Pulse Ox 100% ; em6 19:45 Body Mass Index 35.70 (94.35 kg, 162.56 cm) kb3 MDM: 19:51 Patient medically screened. kb 22:10 Data reviewed: vital signs, nurses notes. Data interpreted: Pulse oximetry: on room air kb is 100 %. Interpretation: normal. Counseling: I had a detailed discussion with the patient and/or guardian regarding: the historical points, exam findings, and any diagnostic results supporting the discharge/admit diagnosis, lab results, radiology results, the need for outpatient follow up, a family practitioner, to return to the emergency department if symptoms worsen or persist or if there are any questions or concerns that arise at home. 04/09 20:00 Order name: Urine Dipstick-Ancillary; Complete Time: 20:03 EDMS 04/09 20:02 Order name: Urine --Ancillary (enter results); Complete Time: 20:10 wm 04/09 20:04 Order name: Stone Protocol CT; Complete Time: 21:03 tw5 04/09 20:04 Order name: CBC with Diff; Complete Time: 20:38 tw5 04/09 20:04 Order name: CMP; Complete Time: 21:03 tw5 04/09 21:25 Order name: Urine Microscopic Only; Complete Time: 22:10 kb 04/09 20:04 Order name: IV Saline Lock; Complete Time: : tw5 04/09 20:04 Order name: Labs collected and sent; Complete Time: 20:22 tw5 Administered Medications: 20:22 Drug: Zofran (Ondansetron) 4 mg Route: IVP; Site: right wrist; tw5 21:20 Follow up: Response: No adverse reaction em6 20:22 Drug: Ketorolac 15 mg Route: IVP; Site: right wrist; tw5 21:20 Follow up: Response: No adverse reaction em6 20:22 Drug: NS 0.9% 1000 ml Route: IV; Rate: 1 bolus; Site: right wrist; tw5 21:33 Follow up: Response: No adverse reaction; IV Status: Completed infusion; IV Intake: em6 1000ml 21:33 Drug: [place] (HYDROcodone-acetaminophen) 10 mg-325 mg 1 tabs Route: PO; em6 21:52 Follow up: Response: No adverse reaction em6 22:17 Follow up: Response: No adverse reaction; RASS: Alert and Calm (0) em6 22:17 Drug: Zofran (Ondansetron) 4 mg Route: IVP; Site: right wrist; em6 22:31 Follow up: Response: No adverse reaction em6 Disposition: 04/10 06:02 Co-signature as Attending Physician, Rafael Andersen MD I agree with the assessment and kdr plan of care. Disposition Summary: 04/09/22 22:13 Discharge Ordered Location: Home kb Condition: Stable kb Diagnosis - Nausea with vomiting, unspecified kb - Right flank pain kb Followup: kb - With: Emergency Department - When: As needed - Reason: Worsening of condition Followup: kb - With: Private Physician - When: 2 - 3 days - Reason: Recheck today's complaints, Continuance of care, Re-evaluation by your physician Discharge Instructions: - Discharge Summary Sheet kb - Nausea and Vomiting, Adult, Vwdx-za-Uosf kb - Flank Pain, Adult, Iusb-jl-Xpuw kb Forms: - Medication Reconciliation Form kb - Thank You Letter kb - Antibiotic Education kb - Prescription Opioid Use kb - Work release form em6 Prescriptions: - Zofran 4 mg Oral Tablet - take 1 tablet by ORAL route every 6 hours As needed; 20 tablet; Refills: 0, kb Product Selection Permitted - Diclofenac Sodium 75 mg Oral tablet,delayed release (DR/EC) - take 1 tablet by ORAL route 2 times per day As needed; 30 tablet; Refills: 0, kb Product Selection Permitted Signatures: Dispatcher [employer] Estefany Price, Rafael Knapp MD MD kdr Wood, Tiffany tw5 Cony Kaur RN RN em6 Shefali Felipe RN RN kb3
--- NOTE | 2022-04-09 22:14 | ER ---
Nurse's Notes [facility] Name: Samantha Alarcon Age: 22 yrs Sex: Female : 2000 Arrival Date: 04/09/2022 Time: 19:27 Bed 27 Private MD: Diagnosis: Nausea with vomiting, unspecified;Right flank pain Presentation: 04/09 19:45 Chief complaint: Patient states: Pt reports right flank pain and difficulty urinating kb3 x2 days with history of kidney stones. Coronavirus screen: Vaccine status: Patient reports being unvaccinated. Client denies travel out of the [place] in the last 14 days. Ebola Screen: Patient negative for fever greater than or equal to 101.5 degrees Fahrenheit, and additional compatible Ebola Virus Disease symptoms Patient denies exposure to infectious person. Patient denies travel to an Ebola-affected area in the 21 days before illness onset. Initial Sepsis Screen: Does the patient meet any 2 criteria? No. Patient's initial sepsis screen is negative. Does the patient have a suspected source of infection? No. Patient's initial sepsis screen is negative. Risk Assessment: Do you want to hurt yourself or someone else? Patient reports no desire to harm self or others. Onset of symptoms was April 07, 2022. 19:45 Method Of Arrival: Ambulatory kb3 19:45 Acuity: BRYANT 3 kb3 Triage Assessment: 19:48 Headache History: The patient has had previous headaches. General: Appears in no kb3 apparent distress. Behavior is calm, cooperative. Pain: Complains of pain in right low back Pain does not radiate. Pain currently is 8 out of 10 on a pain scale. Quality of pain is described as sharp, Pain began 2-3 days ago. Also complains of nausea. 19:48 Neuro: No deficits noted. :. 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 Last tetanus immunization: up to date. - Social history:: Smoking status: Patient denies any tobacco usage or history of. Patient uses street drugs, marijuana. Screenin:51 Abuse screen: Denies threats or abuse. Nutritional screening: No deficits noted. em6 Tuberculosis screening: No symptoms or risk factors identified. Fall Risk IV access (20 points). Total Neff Fall Scale indicates No Risk (0-24 pts). Assessment: 20:04 General: Reports "I am starting to have some trouble peeing. It edwardo of feels like tw5 maybe a kidney stone pain, but I am having nausea and I am having a hard time keeping even water down.". Pain: Pain. Neuro: No deficits noted. Cardiovascular: No deficits noted. Respiratory: No deficits noted. GI: Reports. : Reports "Difficulty with urination.". 21:05 Reassessment: No changes from previously documented assessment. Patient and/or family em6 updated on plan of care and expected duration. Pain level reassessed. Patient states symptoms have not improved. 22:05 Reassessment: No changes from previously documented assessment. Patient and/or family em6 updated on plan of care and expected duration. Pain level reassessed. Vital Signs: 19:45 BP 135 / 82; Pulse 108; Resp 20; Temp 99.4; Pulse Ox 100% ; Weight 94.35 kg; Height 5 kb3 ft. 4 in. (162.56 cm); Pain 8/10; 21:30 BP 113 / 60; Pulse 97; Resp 20; Pulse Ox 100% on R/A; em6 22:15 BP 115 / 79; Pulse 88; Resp 18; Pulse Ox 100% ; em6 19:45 Body Mass Index 35.70 (94.35 kg, 162.56 cm) kb3 ED Course: 19:27 Patient arrived in ED. ja2 19:48 Triage completed. kb3 19:48 Arm band placed on right wrist. kb3 19:51 Estefany Cho FNP-C is [facility]. kb 19:51 Rafael Andersen MD is Attending Physician. kb 20:22 Jackie Alamo is Primary Nurse. tw5 20:22 CBC with Diff Sent. tw5 20:22 CMP Sent. tw5 20:22 Initial lab(s) drawn, by me, sent to lab. Inserted saline lock: 20 gauge in right tw5 wrist, using aseptic technique. Blood collected. 20:[address] In Process Unspecified. EDMS 21:37 Urine Microscopic Only Sent. em6 21:52 Placed in gown. Bed in low position. Call light in reach. Side rails up X2. Cardiac em6 monitor on. Pulse ox on. NIBP on. Warm blanket given. 22:31 No provider procedures requiring assistance completed. IV discontinued, intact, em6 bleeding controlled, No redness/swelling at site. Pressure dressing applied. Administered Medications: 20:22 Drug: Zofran (Ondansetron) 4 mg Route: IVP; Site: right wrist; tw5 21:20 Follow up: Response: No adverse reaction em6 20:22 Drug: Ketorolac 15 mg Route: IVP; Site: right wrist; tw5 21:20 Follow up: Response: No adverse reaction em6 20:22 Drug: NS 0.9% 1000 ml Route: IV; Rate: 1 bolus; Site: right wrist; tw5 21:33 Follow up: Response: No adverse reaction; IV Status: Completed infusion; IV Intake: em6 1000ml 21:33 Drug: [place] (HYDROcodone-acetaminophen) 10 mg-325 mg 1 tabs Route: PO; em6 21:52 Follow up: Response: No adverse reaction em6 22:17 Follow up: Response: No adverse reaction; RASS: Alert and Calm (0) em6 22:17 Drug: Zofran (Ondansetron) 4 mg Route: IVP; Site: right wrist; em6 22:31 Follow up: Response: No adverse reaction em6 Medication: 22:32 VIS not applicable for this client. em6 Intake: 21:33 IV: 1000ml; Total: 1000ml. em6 Outcome: 22:13 Discharge ordered by . hector 22:31 Discharged to home ambulatory. em6 22:31 Condition: stable 22:31 Discharge instructions given to patient, family, Instructed on discharge instructions, follow up and referral plans. medication usage, Demonstrated understanding of instructions, follow-up care, medications, Prescriptions given X 2. 22:36 Patient left the ED. em6 Signatures: Dispatcher [employer] EDMS Estefany Cho, KELLE PUTNAM-Vivi Gallegos ja2 Jackie Alamo tw5 Cony Kaur RN RN em6 Shefali Felipe RN RN kb3 Corrections: (The following items were deleted from the chart) 21:39 21:05 Reassessment: No changes from previously documented assessment. Patient and/or em6 family updated on plan of care and expected duration. Pain level reassessed. notified provider of pain. Patient states symptoms have not improved. em6
[2022-04-09 23:58] VITALS: TEMP 99.4; O2SAT 100
[2022-04-09 23:59] VITALS: BP 113/60
== END 2022-04-09 22:36 | disposition home or self-care (01) ==
LOC: ER 19:21
DX: R11.2 Nausea with vomiting, unspecified (principal); R10.9 Unspecified abdominal pain
CPT/HCPCS: 96361; 85025; 36415; 81025; 80053; 76377; 74176; 96375; 96374; 99284; J7030; J2405 ×2; 81003; 81015

== ENCOUNTER 2022-07-15 20:55 | Emergency (ER) | payer OTHER ==
--- OUTSIDE RECORDS SUMMARY | 2022-07-15 21:03 | XMS REPORT | Continuity of Care Document ---
:[address] [facility] t Address [address] [place] [address] Care Team Providers Name Role Phone LukaszZina Sewell Primary Care Physician aowens Attending Clinician Unavailable MARK BARTON Attending Clinician Unavailable Mark Barton MD Attending Clinician Doctor Unassigned, [place] Attending Clinician Unavailable Harrison Grissom Attending Clinician [phone] Faviola Alarcon Attending Clinician Unavailable Matt Urrutia Attending Clinician Unavailable ELIZABETH CAMEJO Attending Clinician Unavailable Paulette Villasenor Attending Clinician Unavailable NANCY SAGASTUME Attending Clinician Unavailable Deann Gonsalves Attending Clinician Unavailable Brandi Nathan Attending Clinician Unavailable Danette Gutierres Attending Clinician Unavailable Danica Britton Attending Clinician [phone] Yeni Jacques Attending Clinician [phone] Mary Alcala Attending Clinician Unavailable Antolin Brown Attending Clinician [phone] ADULT, HEMOPHILIA Attending Clinician Unavailable Status, Fax Attending Clinician Unavailable LAURO TANNER Attending Clinician Unavailable Sourav Ocampo Attending Clinician Unavailable Sangeeta Mckeon Attending Clinician Unavailable Adriana Donis Attending Clinician Unavailable Tenzin Smiley Attending Clinician Unavailable Carisa Emerson Attending Clinician Unavailable Enma Sanabria Attending Clinician Unavailable Sujey Correia Attending Clinician Unavailable SARAH DOUGLAS M.D. Attending Clinician Unavailable Kenyatta Tolliver Attending Clinician Unavailable Noemi Adkins Attending Clinician [phone] Ricarda Pope Attending Clinician Unavailable Adriana Moya Attending Clinician Unavailable Leandra Hopkins Attending Clinician Unavailable ROSE BEAVERS Attending Clinician Unavailable Luiz Salomon Attending Clinician Unavailable KATRIN FANG M.D. Attending Clinician Unavailable Visit, [facility] Nurse Attending Clinician Unavailable Dany Flores Attending Clinician Zina Bales Attending Clinician [phone] Dionne Erickson Attending Clinician BELLA CHAPMAN Attending Clinician Unavailable SANGEETA ALARCON M.D. Attending Clinician Unavailable ELIZABETH CAMEJO Admitting Clinician Unavailable NANCY SAGASTUME Admitting Clinician Unavailable ROSE BEAVERS Admitting Clinician Unavailable Yeni Jacques Unavailable [phone] Harrison Grissom Unavailable [id number] Payers Payer Name Policy Type Policy Number Effective Date Expiration Date Yaima Cornejo [id number] 2020 CARE 00:00:00 [employer] [place] [id number] 1993 00:00:00 Problems Condition Condition Condition Status Onset Resolution Last Treating Co mments Source Name Details Category Date Date Treatment Clinician Date Gastroente Condition Active 2020-09-30 Braden Jacques, 09-30 10:02:36 Yeni Krishnan viral, 00:00: [place] ty acute 00 Health Hypoglycem Condition Active 2020-09-30 Grissom [facility] ia, 09-25 09:56:03 Harrison Krishnan unspecifie 00:00: ty d 00 Health Acute Condition Active 2020-09-04 Grissom, [facility]y pharyngiti 09-04 12:25:29 Harrison Fink uni s 00:00: ty 00 Health Screening Condition Active 2020-09-04 Braden Grissom for 09-04 12:25:29 Harrison Krishnan infectious 00:00: ty disease 00 Health Headaches Condition Active 2020-09-04 Praveena Legjefferson 09-04 12:25:29 Harrison Krishnan 00:00: ty 00 Health Abnormal Condition Active 2020-08-07 Grissom, [place] [facility] weight 305 14:42:37 Harrison Krishnan gain 00:00: ty 00 Health Back pain Condition Active 2019-062020-04-06 Praveena [facility] 06-06 09:30:01 Harrison Krishnan 00:00: ty 00 Health Contracept Condition Active 2019-062020-04-06 Praveena, [facility] ion 06-06 09:30:01 Harrison Krishnan management [...] ty 00 Health Menorrhagi Condition Active 2019-062020-03-26 Praveena [facility] a 0-22 20:39:09 Harrison Krishnan 00:00: ty 00 Health Hearing Condition Active 2019-062020-03-26 [place]issom, [place] loss, 0-22 20:39:09 Harrison Krishnan right ear 00:00: ty 00 Health Knee pain, Condition Active 2019-062020-03-26 Braden Grissom right, 0 20:39:09 Harrison Prettyi chronic 00:00: ty 00 Health Other Other Disease Active Univers general general 2-03 ity of counseling [place] and advice and advice 00 Me dical for for Branch contracept contracept ankit ankit management management Over Over Disease Active Univers weight weight 2-03 ity of 00:00: [place] 00 Medical Branch Migraine Migraine Disease Active 2017-06 Unive rs with aura with aura 2-07 ity of 00:00: [place] 00 Medical Branch Influenza Influenza Disease Active 2017-06 Uni vers vaccinatio vaccinatio 2- it y of n declined n declined [place] by patient by patient 00 Me dical Branch Depo-Prove Depo-Prove Disease Active 2017-06 U benny ra ra 2-05 ity of contracept contracept 00:[place] ankit status ankit status 00 Me dical Branch Dysmenorrh Dysmenorrh Disease Active U benny ea in ea in 1-25 ity of adolescent adolescent 00[place]00: [place] 00 [place] Abnormal Abnormal Disease Active Unive rs thyroid thyroid 1-25 ity of blood test blood test [place] Attention Attention Disease Active Overview: Univers deficit deficit 9-13 Formattin ity o f hyperactiv hyperactiv 00:00: g of this [place] ity ity 00 note Medical disorder disorder might be Bran ch (ADHD) (ADHD) different from the original. 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 Adolescent Adolescent Problem Active U T dysmenorrh dysmenorrh Ph ysici ea ea ans Transfusio Transfusio Problem Resolve UT n history n history d Phys ici ans Iron Iron Problem Active UT deficiency deficiency Ph ysici anemia anemia ans Abnormal Abnormal Problem Active UT uterine uterine Physici bleeding bleeding ans History of Past Illness Condition Condition Condition Status Onset Resolution Last Treating Co mments Source Name Details Category Date Date Treatment Clinician Date Paronychia Condition Inactiv 2020-09-04 2020-09-04 Braden Grissom great e 3-11 00:00:00 12:25:29 Harrison Commu ni toe 00:00: ty 00 Health Abdominal Condition Inactiv 2020-09-04 2020-09-04 Braden Grissom pain, e 3-05 00:00:00 12:25:29 Harrison Olsen i acute 00:00: ty 00 Health Vomiting Condition Inactiv 2020-08-13 2020-08-13 Braden Grissom e 305 00:00:00 16:47:33 Harrison Olsen i 00:00: ty 00 Health Exposure Condition Inactiv 2019-062020-08-13 2020-08-13 Braden Grissom to e 06-13 00:00:00 16:47:33 Harrison Olsen i COVID-19 00:00: ty coronaviru 00 Health s Nausea Condition Inactiv 2019-062020-04-06 2020-04-06 Braden Grissom e 0 00:00:00 09:33:10 Harrison Olsen i 00:00: ty 00 Health Viral Condition Inactiv 2020-04-06 2020-04-06 Braden Grissom illness-thomas e 02-13 00:00:00 09:33:10 Harrison Co mmuni spected 00:00: ty COVID 00 Health Observatio Condition Inactiv 2020-03-26 2020-03-26 Braden Grissom n and e 02-13 00:00:00 20:39:09 Harrison Olsen i evaluation 00:00: ty for 00 Health suspected exposure to other biological agent Allergies, Adverse Reactions, Alerts Allergy Allergy Status Severity Reaction(s) Onset Inactive Treating Comm ents Source Name Type Date Date Clinician GRAPE DRUG Active Diarrhea 2021-06 Univers SEED INGREDI 2-28 ity of 00:00: [place] 00 Medical Branch Grape Propensi Active Diarrhea 2021-06 Univer s Seed ty to 2-28 ity of adverse 00:00: [place] reaction 00 Medical s Branch BLUE DYE Drug Active Low hives [facility] allergy Criticali 3-11 Commun i (disorde ty 00:00: ty r) 00 Health No Known NA Active [facility] Allergie 08-11 Hospita s 09:50: l 15 ([place]) No Known NA Active [facility] Allergie 08-07 Hospita s 21:15: l 13 ([place]) No Known NA Active [facility] Allergie 08-07 Hospita s 17:38: l 15 ([place]) No Known NA Active [facility] Allergie 08-07 Hospita s 15:12: l 04 ([place]) No Known NA Active [facility] Allergie 07-17 Hospita s 14:08: l 20 ([place]) No Known NA Active [facility] Allergie 07-16 Hospita s 22:00: l 58 ([place]) No Known NA Active [facility] Allergie 07-16 Hospita s 16:45: l 34 ([place]) No Known NA Active [facility] Allergie 07-16 Hospita s 15:51: l 27 ([place]) No Known NA Active [facility] Allergie 01-19 Hospita s 12:49: l 23 ([place]) No Known NA Active [facility] Allergie 01-16 Hospita s 21:22: l 22 ([place]) No Known NA Active 2019-0 [facility] Allergie 01-16 Hospita s 19:26: l 38 ([place]) No Known NA Active 2019-0 [facility] Allergie 01-16 Hospita s 17:11: l 12 ([place]) Blue Dye Propensi Active Rash 2017-06 Univer s ty to 0-30 ity of adverse 00:00: [place] reaction 00 Medical s Branch Grape Propensi Active Rash 2017-06 Univers ty to 0-30 ity of adverse 00:00: [place] reaction 00 Medical s Branch BLUE DYE DRUG Active Rash 2017-06 Univers INGREDI 0-30 ity of 00:00: [place] 00 Medical Branch GRAPE DRUG Active Rash 2017-06 Univers INGREDI 0-30 ity of 00:00: [place] 00 Medical Branch Family History Family Member Diagnosis Comments Start Date Stop Date Source Grandparent Family history of [facility] thromboembolic disease aunt Family history of [facility] thromboembolic disease Mother Family history of Bleeding [facility] Social History Social Habit Start Date Stop Date Quantity Comments Source History of tobacco Passive smoker Un iversity of use [facility] Exposure to 2022-05-22 2022-06-01 [facility] sure [facility] SARS-CoV-2 (event) 00:00:00 20:33:00 [facility] if the patient is 2020-09-30 2020-09-30 No [facility] using/has used a 09:04:08 09:04:08 Health vaping item, Current, Former, Never Used, Not asked passive cigarette 2020-09-30 2020-09-30 No [facility] smoke exposure 09:04:08 09:04:08 Health is there any chance 2020-09-30 2020-09-30 No [facility] that you could be 09:04:08 09:04:08 Health ? PHQ2 Questionairre 2020-09-30 2020-09-30 [facility] Score 09:04:08 09:04:08 Health sexual orientation 2020-09-30 2020-09-30 Heterosexual [facility] [facility] 09:04:08 09:04:08 Health time of call 2020-09-29 2020-09-29 09/29/2020 3:22 PM [facility] 15:22:32 15:22:32 Health albumin, serum 2020-09-24 2020-09-24 4.8 g/dL [facility] 09:21:00 09:21:00 Health social history 2020-09-04 2020-09-04 reviewed - no [facility] reviewed E&M 11:10:57 11:10:57 changes required Health smoking, advice to 2020-04-22 2020-04-22 Yes [facility] quit 08:26:14 08:26:14 Health Weight Management 2020-04-22 2020-04-22 Follow Up Done [facility] Community Counseling Provided 08:26:14 08:26:14 Healberenice social history E&M 2020-03-26 2020-03-26 Lives in group [facility] 12:41:26 12:41:26 home ([facility]) with her twin sister and younger sister. Ever had sexual 2020-03-26 2020-03-26 No [facility] intercourse? 12:41:26 12:41:26 Health drug use 2020-02-14 2020-02-14 Never [facility] ty 14:28:43 14:28:43 Health alcohol use 2020-02-14 2020-02-14 Never [facility] ity 14:28:43 14:28:43 Health patient considered 2020-02-14 2020-02-14 No [facility] to be homeless 14:28:43 14:28:43 Health Alcohol intake 2019-07-08 2019-07-08 Current University of 00:00:00 00:00:00 non-drinker of [facility] alcohol (finding) [place] Tobacco Comment 2013-02-15 2013-02-15 Mom smokes outside U niversity of 00:00:00 00:00:00 [facility] Sex Assigned At 2000 2002 Universit y of 00:00:00 00:00:00 [facility] Smoking Status Start Date Stop Date Source [facility] Ordered Filled Start Stop Current Ordering Indication Dosage Frequency Signature Comments Components Source Medication Medication Date Date Medication? Clinician (SIG) Name Name acetaminoph 2021-06 No 975mg 975 mg, U nivers en 2-29 06-02 Oral, ity of (TYLENOL) 04:00: 03:05 ONCE, 1 [place] tablet 975 00 :00 dose, On Medic al mg Wed Branch 06/01/22 at 2200, IRMA benzonatate 2021-06 Yes [id number] 100mg Take 1 Univers 100 mg 2-28 capsule by ity of capsule 00:00: mouth 3 [place] 00 (three) Medical times Branch daily as needed for Cough. loratadine 2021-06 Yes [id number] 10mg Take 1 U nivers 10 mg 2-28 tablet by ity of tablet 00:00: mouth at [place] 00 bedtime as Medical needed for Branch Allergies. montelukast 2021-06 Yes [id number] 10mg Take 1 Univers 10 mg 2-28 tablet by ity of tablet 00:00: mouth [place] 00 every 24 Medical (twenty-fo Branch ur) hours as needed (symptoms) . doxycycline 2021-06- Yes [id number] 100mg Take 1 Univers hyclate 100 2-28 -08 capsule by i ty of mg capsule 00:00: 05:59 [place] 00 :00 the Medical morning Branch and 1 capsule in the evening. Do all this for 10 days. (FAMOTIDINE Yes Yeni 1 tab po [facility] ) 20 MG 4-28 [place] bid for 2 Commu ni TABS 00:00: Obenza weeks as ty 00 needed of Health dyspepsia (FLUTICASON Yes Harrison 2 spray to [facility] E 09-04 Grissom each Communi PROPIONATE) 00:00: nostril ty 50 MCG/ACT 00 once a day Hea lth SUSP (CETIRIZINE Yes Harrison 1 1xD 1 tab by [facility] HCL) 10 MG 09-04 Grissom mouth once Co mmuni TABS 00:00: a day ty 00 Health (ONDANSETRO Yes Yeni 1 tab Leg acy N) 8 MG 3- [place]ell dissolve Commun i TBDP 00:00: Obenza on tongue ty 00 every 8 Health hours as needed for vomiting (CLONIDINE Yes 1 1xD nightly [facility] HCL) 0.1 MG -11 Communi TABS 00:00: ty 00 Health ZYPREXA Yes 1 1xD take one [facility] (OLANZAPINE 11 tab by Commun i ) 2.5 MG 00:00: mouth once ty TABS 00 a day Health FLUOXETINE Yes 20 mg [facility] HCL - orally Communi (FLUOXETINE 00:00: once a day [...] Health needed for fever and pain (ONDANSETRO 2019- 2020- No Harrison 1 tab by Braden Dejesus) 8 MG 004-06 Grissom mouth Communi TBDP 00:00: 00:00 every 8 ty 00 :00 hours as Health needed for vomiting Iron 325 Iron 325 2019- Yes SARAH Take one UT (65 Fe) MG (65 Fe) MG 12-31 BEYDA M.D. tablet by Physici Oral Tablet Oral Tablet 00:00: mouth ans 00 twice a day with food. Do not take with dairy products. Take for total of 6 months MedroxyPROG MedroxyPROG Yes SARAH INJECT UT ESTERone ESTERone - BEYDA M.D. INTRAMUSCU Physici Acetate 150 Acetate 150 00:00: LARLY ans MG/ML MG/ML 00 DIRECTED. Intramuscul Intramuscul ar ar Suspension Suspension medroxyPROG 2020- No [id number] 150mg Univers ESTERone 07-08 ity of (DEPO-PROVE 23:15: 22:59 [place] RA) 00 :00 Medical injection Branch 150 mg medroxyPROG 2020- No [id number] 150mg 150 mg, Univers ESTERone 07-08 Intramuscu ity of (DEPO-PROVE 23:15: 22:59 lar, [place] RA) 00 :00 [id number], Medical injection 4 doses, Branch 150 mg First dose on Mon07/08/19 at 1715, Last dose on Mon03/16/20 at 1715, Routine medroxyPROG 2020- No [id number] 150mg Univers ESTERone 07-08 ity of (DEPO-PROVE 23:15: 22:59 [place] RA) 00 :00 Medical injection Branch 150 mg medroxyPROG 2020- No [id number] 150mg 150 mg, Univers ESTERone 07-08 Intramuscu ity of (DEPO-PROVE 23:15: 22:59 lar, [place] RA) 00 :00 [id number], Medical injection 4 doses, Branch 150 mg First dose on Mon07/08/19 at 1715, Last dose on Mon03/16/20 at 1715, Routine medroxyPROG 2020- No [id number] 150mg Univers ESTERone 07-08 ity of (DEPO-PROVE 23:15: 22:59 [place] RA) 00 :00 Medical injection Branch 150 mg medroxyPROG 2020-2020- No [id number] 150mg 150 mg, Univers ESTERone 07-08 Intramuscu ity of (DEPO-PROVE 23:15: 22:59 lar, [place] RA) 00 :00 [id number], Medical injection 4 doses, Branch 150 mg First dose on Mon07/08/19 at 1715, Last dose on Mon03/16/20 at 1715, Routine medroxyPROG 2019-2020- No [id number] 150mg Univers ESTERone 07-08 ity of (DEPO-PROVE 23:15: 22:59 [place] RA) 00 :00 Medical injection Branch 150 mg medroxyPROG 2020-0 2020- No [id number] 150mg Univers ESTERone 07-08 ity of (DEPO-PROVE 23:15: 22:59 [place] RA) 00 :00 Medical injection Branch 150 mg medroxyPROG 2019-0 Yes 150mg Unive rs ESTERone 7-19 ity of (DEPO-PROVE 16:45: [place] RA) 00 Medical injection Branch 150 mg medroxyPROG 2019-0 Yes 150mg Unive rs ESTERone 7-19 ity of (DEPO-PROVE 16:45: [place] RA) 00 Medical injection Branch 150 mg medroxyPROG 2019-0 Yes 150mg Unive rs ESTERone 7-19 ity of (DEPO-PROVE 16:45: [place] RA) 00 Medical injection Branch 150 mg medroxyPROG 2019-0 Yes 150mg Unive rs ESTERone 7-19 ity of (DEPO-PROVE 16:45: [place] RA) 00 Medical injection Branch 150 mg medroxyPROG 2019-0 Yes 150mg Unive rs ESTERone 7-19 ity of (DEPO-PROVE 16:45: [place] RA) 00 Medical injection Branch 150 mg medroxyPROG 2019-0 Yes 150mg Unive rs ESTERone 7-19 ity of (DEPO-PROVE 16:45: [place] RA) 00 Medical injection Branch 150 mg medroxyPROG 2019-0 Yes 150mg Unive rs ESTERone 7-19 ity of (DEPO-PROVE 16:45: [place] RA) 00 Medical injection Branch 150 mg medroxyPROG 2019-0 Yes 150mg Unive rs ESTERone 7-19 ity of (DEPO-PROVE 16:45: [place] RA) 00 Medical injection Branch 150 mg medroxyPROG 2019-0 Yes 150mg Unive rs ESTERone 7-19 ity of (DEPO-PROVE 16:45: [place] RA) 00 Medical injection Branch 150 mg risperiDONE 2017-0 Yes TK 1 T PO U nivers 0.5 mg 1-17 QHS ity of tablet 00:00: [place] [facility] Branch SERTraline 2017-0 Yes TK 1 T PO Un [place] 100 mg 1-17 QAM ity of tablet 00:00: [address] hydrOXYzine 2017-0 Yes TK 1 T PO U nivers 50 mg 1-17 QHS ity of tablet 00:00: [address] risperiDONE 2017-0 Yes TK 1 T PO U nivers 0.5 mg 1-17 QHS ity of tablet 00:00: [address] SERTraline 2017-0 Yes TK 1 T PO Un [place] 100 mg 1-17 QAM ity of tablet 00:00: [address] hydrOXYzine 2017-0 Yes TK 1 T PO U nivers 50 mg 1-17 QHS ity of tablet 00:00: [address] risperiDONE 2017-0 Yes TK 1 T PO U nivers 0.5 mg 1-17 QHS ity of tablet 00:00: [address] SERTraline 2017-0 Yes TK 1 T PO Un [place] 100 mg 1-17 QAM ity of tablet 00:00: [place] [facility] hydrOXYzine 2017-0 Yes TK 1 T PO U nivers 50 mg 1-17 QHS ity of tablet 00:00: [address] risperiDONE 2017-0 Yes TK 1 T PO U nivers 0.5 mg 1-17 QHS ity of tablet 00:00: [address] SERTraline 2017-0 Yes TK 1 T PO Un [place] 100 mg 1-17 QAM ity of tablet 00:00: [address] hydrOXYzine 2017-0 Yes TK 1 T PO U nivers 50 mg 1-17 QHS ity of tablet 00:00: [address] risperiDONE 2017-0 Yes TK 1 T PO U nivers 0.5 mg 1-17 QHS ity of tablet 00:00: [address] SERTraline 2017-0 Yes TK 1 T PO Un [place] 100 mg 1-17 QAM ity of tablet 00:00: [address] hydrOXYzine Yes TK 1 T PO U nivers 50 mg 1-17 QHS ity of tablet 00:00: [address] risperiDONE 2017-0 Yes TK 1 T PO U nivers 0.5 mg 1-17 QHS ity of tablet 00:00: [address] SERTraline Yes TK 1 T PO Un [place] 100 mg 1-17 QAM ity of tablet 00:00: [address] hydrOXYzine Yes TK 1 T PO U nivers 50 mg 1-17 QHS ity of tablet 00:00: [address] risperiDONE 2016- Yes TK 1 T PO U nivers 0.5 mg 1-17 QHS ity of tablet 00:00: [address] SERTraline 2017 Yes TK 1 T PO Un [place] 100 mg 1-17 QAM ity of tablet 00:00: [address] hydrOXYzine Yes TK 1 T PO U nivers 50 mg 1-17 QHS ity of tablet 00:00: [address] risperiDONE 2017-0 Yes TK 1 T PO U nivers 0.5 mg 1-17 QHS ity of tablet 00:00: [address] SERTraline Yes TK 1 T PO Un [place] 100 mg 1-17 QAM ity of tablet 00:00: [address] hydrOXYzine 2016-0 Yes TK 1 T PO U nivers 50 mg 1-17 QHS ity of tablet 00:00: [address] risperiDONE 2017-0 Yes TK 1 T PO U nivers 0.5 mg 1-17 QHS ity of tablet 00:00: [address] SERTraline 2016- Yes TK 1 T PO Un [place] 100 mg 1-17 QAM ity of tablet 00:00: [address] hydrOXYzine Yes TK 1 T PO U nivers 50 mg 1-17 QHS ity of tablet 00:00: [address] dexmethylph 2014-0 Yes 15mg Take 1 Cap Univers enidate 2-21 by mouth ity of (FOCALIN 00:00: daily. [place] XR) 15 mg 00 Medical 24 hr Branch capsule dexmethylph 2014-0 Yes 15mg Take 1 Cap Univers enidate 2-21 by mouth ity of (FOCALIN 00:00: daily. [place] XR) 15 mg 00 Medical 24 hr Branch capsule dexmethylph 2014-0 Yes 15mg Take 1 Cap Univers enidate 2-21 by mouth ity of (FOCALIN 00:00: daily. [place] XR) 15 mg 00 Medical 24 hr Branch capsule dexmethylph 2014-0 Yes 15mg Take 1 Cap Univers enidate 2-21 by mouth ity of (FOCALIN 00:00: daily. [place] XR) 15 mg 00 Medical 24 hr Branch capsule dexmethylph 2014-0 Yes 15mg Take 1 Cap Univers enidate 2-21 by mouth ity of (FOCALIN 00:00: daily. [place] XR) 15 mg 00 Medical 24 hr Branch capsule dexmethylph 2014-0 Yes 15mg Take 1 Cap Univers enidate 2-21 by mouth ity of (FOCALIN 00:00: daily. [place] XR) 15 mg 00 Medical 24 hr Branch capsule dexmethylph 2013-0 Yes 15mg Take 1 Cap Univers enidate 2-21 by mouth ity of (FOCALIN 00:00: daily. [place] XR) 15 mg 00 Medical 24 hr Branch capsule dexmethylph 2014-0 Yes 15mg Take 1 Cap Univers enidate 2-21 by mouth ity of (FOCALIN 00:00: daily. [place] XR) 15 mg 00 Medical 24 hr Branch capsule dexmethylph 2014-0 Yes 15mg Take 1 Cap Univers enidate 2-21 by mouth ity of (FOCALIN 00:00: daily. [place] XR) 15 mg 00 Medical 24 hr Branch capsule Cholecalcif 2012-0 Yes [id number] 2 capsules Univers edel, 9-18 po q day x ity of Vitamin D3, 00:00: 6 [place] (VITAMIN 00 then one Medical D3) 1,000 capsule Branch unit Cap daily for 10 weeks Cholecalcif 2012-0 Yes [id number] 2 capsules Univers edel, 9-18 po q day x ity of Vitamin D3, 00:00: 6 weeks, [place] (VITAMIN 00 then one Medical D3) 1,000 capsule Branch unit Cap daily for 10 weeks Cholecalcif 2012-0 Yes [id number] 2 capsules Univers edel, 9-18 po q day x ity of Vitamin D3, 00:00: 6 weeks, [place] (VITAMIN 00 then one Medical D3) 1,000 capsule Branch unit Cap daily for 10 weeks Cholecalcif Yes [id number] 2 capsules Univers edel, 9-18 po q day x ity of Vitamin D3, 00:00: 6 weeks, [place] (VITAMIN 00 then one Medical D3) 1,000 capsule Branch unit Cap daily for 10 weeks Cholecalcif Yes [id number] 2 capsules Univers edel, 9-18 po q day x ity of Vitamin D3, 00:00: 6 weeks, [place] (VITAMIN 00 then one Medical D3) 1,000 capsule Branch unit Cap daily for 10 weeks Cholecalcif Yes [id number] 2 capsules Univers edel, 9-18 po q day x ity of Vitamin D3, 00:00: 6 weeks, [place] (VITAMIN 00 then one Medical D3) 1,000 capsule Branch unit Cap daily for 10 weeks Cholecalcif Yes [id number] 2 capsules Univers edel, 9-18 po q day x ity of Vitamin D3, 00:00: 6 weeks, [place] (VITAMIN 00 then one Medical D3) 1,000 capsule Branch unit Cap daily for 10 weeks Cholecalcif Yes [id number] 2 capsules Univers edel, 9-18 po q day x ity of Vitamin D3, 00:00: 6 weeks, [place] (VITAMIN 00 then one Medical D3) 1,000 capsule Branch unit Cap daily for 10 weeks Cholecalcif Yes [id number] 2 capsules Univers edel, 9-18 po q day x ity of Vitamin D3, 00:00: 6 weeks, [place] (VITAMIN 00 then one Medical D3) 1,000 capsule Branch unit Cap daily for 10 weeks Iron TABS Iron TABS Yes M.D. [facility] ans Immunizations Ordered Immunization Filled Date Status Comments Sour ce Name Immunization Name Influenza Virus 2019-07-08 Completed Universit y of Vaccine Quad .5 mL IM 00:00:00 [place] Medical 6+ MO Branch Influenza Virus 2019-07-08 Completed Universit y of Vaccine Quad .5 mL IM 00:00:00 [place] Medical 6+ MO Branch Influenza Virus 2019-07-08 Completed Universit y of Vaccine Quad .5 mL IM 00:00:00 [place] [facility] 6+ MO Branch Influenza Virus 2019-07-08 Completed Universit y of Vaccine Quad .5 mL IM 00:00:00 [place] Medical 6+ MO Branch Influenza Virus 2019-07-08 Completed Universit y of Vaccine Quad .5 mL IM 00:00:00 [place] [facility] 6+ MO Branch Influenza Virus 2019-07-08 Completed Universit y of Vaccine Quad .5 mL IM 00:00:00 [place] Medical 6+ MO Branch Influenza Virus 2019-07-08 Completed Universit y of Vaccine Quad .5 mL IM 00:00:00 [place] Medical 6+ MO Branch influenza, unspecified 2019-07-08 Completed [facility] [facility] formulation 00:00:00 Health meningococcal B, 2019-02-18 Completed [facility] unspecified 00:00:00 Health meningococcal B, 2019 Completed [facility] unspecified 00:00:00 Health meningococcal ACWY, 2018-06-25 Completed [facility] unspecified 00:00:00 Health formulation influenza, unspecified 2016-06-02 Completed [place] [facility] formulation 00:00:00 Health HPV 2015-01-21 Completed University of 00:00:00 [facility] HPV 2015-01-21 Completed University of 00:00:00 [facility] HPV 2015-01-21 Completed University of 00:00:00 [facility] Branch HPV 2015-01-21 Completed University of 00:00:00 [facility] Branch HPV 2015-01-21 Completed University of 00:00:00 [facility] Branch HPV 2015-01-21 Completed University of 00:00:00 [facility] [facility] HPV 2015-01-21 Completed [facility] 00:00:00 [facility] HPV 2015-01-21 Completed [facility] 00:00:00 [facility] HPV 2015-01-21 Completed [facility] 00:00:00 [facility] HPV, unspecified 2015-01-21 Completed [facility] HPV 2013-05-08 Completed [facility] 00:00:00 [facility] HPV 2013-05-08 Completed [facility] 00:00:00 [facility] HPV 2013-05-08 Completed [facility] 00:00:00 [facility] HPV 2013-05-08 Completed [facility] 00:00:00 [facility] HPV 2013-05-08 Completed [facility] 00:00:00 [facility] HPV 2013-05-08 Completed [facility] 00:00:00 [facility] HPV 2013-05-08 Completed [facility] 00:00:00 [facility] HPV 2013-05-08 Completed [facility] 00:00:00 [facility] HPV 2013-05-08 Completed [facility] 00:00:00 [facility] HPV, unspecified 2013-05-08 Completed [facility]00 [facility] Influenza Virus 2013-02-15 Completed Universit [facility] of Vaccine 00:00:00 [facility] HPV 2013-02-15 Completed [facility] 00:00:00 [facility] Tdap 2013-02-15 Completed [facility] 00:00:00 [facility] Meningococcal 2013-02-15 Completed [facility] Oligosaccharide 00:00:00 [place] [facility] (groups A, C, Y and Branc h W-135) conjugate vaccine (MCV4O) Influenza Virus 2013-02-15 Completed [facility]it [facility] of Vaccine 00:00:00 [facility] HPV 2013-02-15 Completed [facility] 00:00:00 [facility] Tdap 2013-02-15 Completed [facility] 00:00:00 [facility] Meningococcal 2013-02-15 Completed [facility] Oligosaccharide 00:00:00 [place] [facility] (groups A, C, Y and Branc h W-135) conjugate vaccine (MCV4O) Influenza Virus 2013-02-15 Completed [facility] Vaccine 00:00:00 [facility] HPV 2013-02-15 Completed [facility] 00:00:00 [facility] Tdap 2013-02-15 Completed [facility] 00:00:00 [facility] Meningococcal 2013-02-15 Completed [facility] Oligosaccharide 00:00:00 [place] [facility] (groups A, C, Y and Branc h W-135) conjugate vaccine (MCV4O) Influenza Virus 2013-02-15 Completed [facility] of Vaccine 00:00:00 [facility] HPV 2013-02-15 Completed [facility] 00:00:00 [facility] Tdap 2013-02-15 Completed [facility] 00:00:00 [facility] Meningococcal 2013-02-15 Completed [facility] Oligosaccharide 00:00:00 [place] [facility] (groups A, C, Y and Branc h W-135) conjugate vaccine (MCV4O) Influenza Virus 2013-02-15 Completed [facility] of Vaccine 00:00:00 [facility] HPV 2013-02-15 Completed [facility] 00:00:00 [facility] TDAP 2013-02-15 Completed [facility] 00:00:00 [facility] Meningococcal 2013-02-15 Completed [facility] Oligosaccharide 00:00:00 [place] [facility] (groups A, C, Y and Branc h W-135) conjugate vaccine (MCV4O) Influenza Virus 2013-02-15 Completed [facility] of Vaccine 00:00:00 [facility] HPV 2013-02-15 Completed [facility] 00:00:00 [facility] TDAP 2013-02-15 Completed [facility] 00:00:00 [facility] Meningococcal 2013-02-15 Completed [facility] Oligosaccharide 00:00:00 [place] [facility] (groups A, C, Y and Branc h W-135) conjugate vaccine (MCV4O) Influenza Virus 2013-02-15 Completed [facility] of Vaccine 00:00:00 [facility] HPV 2013-02-15 Completed [facility] 00:00:00 [facility] TDAP 2013-02-15 Completed [facility] 00:00:00 [facility] Meningococcal 2013-02-15 Completed [facility] Oligosaccharide 00:00:00 [place] [facility] (groups A, C, Y and Branc h W-135) conjugate vaccine (MCV4O) Influenza Virus 2013-02-15 Completed [facility] Vaccine 00:00:00 [facility] HPV 2013-02-15 Completed [facility] 00:00:00 [facility] Tdap 2013-02-15 Completed [facility] 00:00:00 [facility] Meningococcal 2013-02-15 Completed [facility] Oligosaccharide 00:00:00 [place] [facility] (groups A, C, Y and Branc h W-135) conjugate vaccine (MCV4O) Influenza Virus 2013-02-15 Completed [facility] of Vaccine 00:00:00 [facility] HPV 2013-02-15 Completed [facility] 00:00:00 [facility] Tdap 2013-02-15 Completed [facility] 00:00:00 [facility] Meningococcal 2013-02-15 Completed [facility] Oligosaccharide 00:00:00 [place] [facility] (groups A, C, Y and Branc h W-135) conjugate vaccine (MCV4O) meningococcal ACWY, 2013-02-15 [facility] unspecified 00:[facility]:00 [facility] formulation influenza, unspecified 2013-02-15 Completed [facility] formulation 00:00:00 [facility] HPV, unspecified 2013-02-15 Completed [facility]00 [facility] Tdap 2013-02-15 [facility] Influenza Virus 2012-03-08 Completed [facility] Vaccine - Whole 00:00:00 [facility] Influenza Virus 2012-03-08 Completed [facility] of Vaccine - Whole 00:00:00 [facility] Influenza Virus 2012-03-08 Completed [facility] of Vaccine - Whole 00:00:00 [facility] Influenza Virus 2012-03-08 Completed [facility] of Vaccine - Whole 00:00:00 [facility] Influenza Virus 2012-03-08 Completed [facility] of Vaccine - Whole 00:00:00 [facility] Influenza Virus 2012-03-08 Completed [facility] of Vaccine - Whole 00:00:00 [facility] Influenza Virus 2012-03-08 Completed [facility] of Vaccine - Whole 00:00:00 [facility] Influenza Virus 2012-03-08 Completed [facility] of Vaccine - Whole 00:00:00 [facility] Influenza Virus 2012-03-08 Completed [facility] of Vaccine - Whole 00:00:00 [facility] influenza, unspecified 2012-03-08 Completed [facility] formulation 00:00:00 [facility] Influenza Virus 2011-03-03 Completed [facility] of Vaccine - Whole 00:00:00 [facility] Influenza Virus 2011-03-03 Completed [facility] of Vaccine - Whole 00:00:00 [facility] Influenza Virus 2011-03-03 Completed [facility] of Vaccine - Whole 00:00:00 [facility] Influenza Virus 2011-03-03 Completed [facility] of Vaccine - Whole 00:00:00 [facility] Influenza Virus 2011-03-03 Completed [facility] of Vaccine - Whole 00:00:00 [facility] Influenza Virus 2011-03-03 Completed [facility] of Vaccine - Whole 00:00:00 [facility] Influenza Virus 2011-03-03 Completed [facility] of Vaccine - Whole 00:00:00 [facility] Influenza Virus 2011-03-03 Completed [facility] of Vaccine - Whole 00:00:00 [facility] Influenza Virus 2011-03-03 Completed [facility] of Vaccine - Whole 00:00:00 [facility] influenza, unspecified 2011-03-03 Completed [facility] formulation 00:00:00 [facility] Influenza Virus 2010-03-05 Completed [facility] of Vaccine - Whole 00:00:00 [facility] Influenza Virus 2010-03-05 Completed [facility] of Vaccine - Whole 00:00:00 [facility] Influenza Virus 2010-03-05 Completed [facility] of Vaccine - Whole 00:00:00 [facility] Influenza Virus 2010-03-05 Completed [facility] of Vaccine - Whole 00:00:00 [facility] Influenza Virus 2010-03-05 Completed [facility] of Vaccine - Whole 00:00:00 [facility] Influenza Virus 2010-03-05 Completed [facility] of Vaccine - Whole 00:00:00 [facility] Influenza Virus 2010-03-05 Completed [facility] of Vaccine - Whole 00:00:00 [facility] Influenza Virus 2010-03-05 Completed [facility] of Vaccine - Whole 00:00:00 [facility] Influenza Virus 2010-03-05 Completed [facility] of Vaccine - Whole 00:00:00 [facility] Influenza Virus 2009-06-15 Completed [facility] of Vaccine - Whole 00:00:00 [facility] H1n1 Vaccine 2009-06-15 Completed [facility] f 00:00:00 [facility] Influenza Virus 2009-06-15 Completed [facility] of Vaccine - Whole 00:00:00 [facility] H1n1 Vaccine 2009-06-15 Completed University o f 00:00:00 [facility] Influenza Virus 2009-06-15 Completed [facility] of Vaccine - Whole 00:00:00 [facility] H1n1 Vaccine 2009-06-15 Completed [facility] o f 00:00:00 [facility] Influenza Virus 2009-06-15 Completed [facility] of Vaccine - Whole 00:00:00 [facility] H1n1 Vaccine 2009-06-15 Completed [facility] f 00:00:00 [facility] Influenza Virus 2009-06-15 Completed [facility] of Vaccine - Whole 00:00:00 [facility] H1n1 Vaccine 2009-06-15 Completed [facility] o f 00:00:00 [facility] Influenza Virus 2009-06-15 Completed [facility] of Vaccine - Whole 00:00:00 [facility] H1n1 Vaccine 2009-06-15 Completed [facility] f 00:00:00 [facility] Influenza Virus 2009-06-15 Completed [facility] of Vaccine - Whole 00:00:00 [facility] H1n1 Vaccine 2009-06-15 Completed [facility] f 00:00:00 [facility] Influenza Virus 2009-06-15 Completed [facility] of Vaccine - Whole 00:00:00 [facility] H1n1 Vaccine 2009-06-15 Completed [facility] f 00:00:00 [facility] Influenza Virus 2009-06-15 Completed [facility] of Vaccine - Whole 00:00:00 [facility] H1n1 Vaccine 2009-06-15 Completed [facility] f 00:00:00 [facility] H1n1 Vaccine 2009-05-14 Completed [facility] o f 00:00:00 [facility] Influenza Virus 2009-05-14 Completed [facility] of Vaccine - Whole 00:00:00 [facility] H1n1 Vaccine 2009-05-14 Completed [facility] f 00:00:00 [facility] Influenza Virus 2009-05-14 Completed [facility] of Vaccine - Whole 00:00:00 [facility] H1n1 Vaccine 2009-05-14 Completed [facility] o f 00:00:00 [facility] Influenza Virus 2009-05-14 Completed [facility] of Vaccine - Whole 00:00:00 [facility] H1n1 Vaccine 2009-05-14 Completed [facility] f 00:00:00 [facility] Influenza Virus 2009-05-14 Completed [facility] of Vaccine - Whole 00:00:00 [facility] H1n1 Vaccine 2009-05-14 Completed [facility] f 00:00:00 [facility] Influenza Virus 2009-05-14 Completed [facility] of Vaccine - Whole 00:00:00 [facility] H1n1 Vaccine 2009-05-14 Completed [facility] o f 00:00:00 [facility] Influenza Virus 2009-05-14 Completed [facility] of Vaccine - Whole 00:00:00 [facility] H1n1 Vaccine 2009-05-14 Completed [facility] o f 00:00:00 [facility] Influenza Virus 2009-05-14 Completed [facility] of Vaccine - Whole 00:00:00 [facility] H1n1 Vaccine 2009-05-14 Completed [facility] o f 00:00:00 [facility] Influenza Virus 2009-05-14 Completed [facility] of Vaccine - Whole 00:00:00 [facility] H1n1 Vaccine 2009-05-14 Completed [facility] f 00:00:00 [facility] Influenza Virus 2009-05-14 Completed [facility] of Vaccine - Whole 00:00:00 [facility] influenza, unspecified 2009-05-14 Completed [facility] formulation 00:00:00 [facility] Varicella 2007-10-16 Completed University of (varivax)(chicken pox) 00:00:00 [facility] Varicella 2007-10-16 Completed [facility] (varivax)(chicken pox) 00:00:00 [facility] Varicella 2007-10-16 Completed [facility] (varivax)(chicken pox) 00:00:00 [facility] Varicella 2007-10-16 Completed [facility] (varivax)(chicken pox) 00:00:00 [facility] Varicella 2007-10-16 Completed [facility] (varivax)(chicken pox) 00:00:00 [facility] Varicella 2007-10-16 Completed [facility] (varivax)(chicken pox) 00:00:00 [facility] Varicella 2007-10-16 Completed [facility] (varivax)(chicken pox) 00:00:00 [facility] Varicella 2007-10-16 Completed [facility] (varivax)(chicken pox) 00:00:00 [facility] Varicella 2007-10-16 Completed [facility] (varivax)(chicken pox) 00:00:00 [facility] varicella 2007-07-03 Completed [facility]00 [facility] Influenza Virus 2007-04-17 Completed [facility] of Vaccine - Whole 00:00:00 [facility] Influenza Virus 2007-04-17 Completed [facility] of Vaccine - Whole 00:00:00 [facility] Influenza Virus 2007-04-17 Completed [facility] of Vaccine - Whole 00:00:00 [facility] Influenza Virus 2007-04-17 Completed [facility] of Vaccine - Whole 00:00:00 [facility] Influenza Virus 2007-04-17 Completed [facility] of Vaccine - Whole 00:00:00 [facility] Influenza Virus 2007-04-17 Completed [facility] of Vaccine - Whole 00:00:00 [facility] Influenza Virus 2007-04-17 Completed [facility] of Vaccine - Whole 00:00:00 [facility] influenza, unspecified 2007-04-17 Completed [facility] formulation 00:00:00 [facility] DTAP 2006-01-18 Completed [facility] 00:00:00 [facility] Polio (IPV/OPV) 2006-01-18 Completed [facility] of 00:00:00 [facility] MMR 2006-01-18 Completed [facility] 00:00:00 [facility] DTAP 2006-01-18 Completed [facility] 00:00:00 [facility] Polio (IPV/OPV) 2006-01-18 Completed [facility] of 00:00:00 [facility] MMR 2006-01-18 Completed [facility] 00:00:00 [facility] DTAP 2006-01-18 Completed [facility] 00:00:00 [facility] Polio (IPV/OPV) 2006-01-18 Completed [facility] of 00:00:00 [facility] MMR 2006-01-18 Completed [facility] 00:00:00 [facility] DTAP 2006-01-18 Completed [facility] 00:00:00 [facility] Polio (IPV/OPV) 2006-01-18 Completed [facility] of 00:00:00 [facility] MMR 2006-01-18 Completed [facility] 00:00:00 [facility] DTAP 2006-01-18 Completed [facility] 00:00:00 [facility] Polio (IPV/OPV) 2006-01-18 Completed [facility] of 00:00:00 [facility] MMR 2006-01-18 Completed [facility] 00:00:00 [facility] DTAP 2006-01-18 Completed [facility] 00:00:00 [facility] Polio (IPV/OPV) 2006-01-18 Completed [facility] of 00:00:00 [facility] MMR 2006-01-18 Completed [facility] 00:00:00 [facility] DTAP 2006-01-18 Completed [facility] 00:00:00 [facility] Polio (IPV/OPV) 2006-01-18 Completed [facility] of 00:00:00 [facility] MMR 2006-01-18 Completed [facility] 00:00:00 [facility] DTaP, unspecified 2006-01-18 Completed [facility] 00:00:00 [facility] polio, unspecified 2006-01-18 Completed [facility] 00:00:00 [facility] 03 2006-01-18 Completed [facility] HEPATITIS A 2005-09-06 Completed [facility] 00:00:00 [facility] HEPATITIS A 2005-09-06 Completed [facility] 00:00:00 [facility] HEPATITIS A 2005-09-06 Completed [facility] 00:00:00 [facility] HEPATITIS A 2005-09-06 Completed [facility] 00:00:00 [facility] HEPATITIS A 2005-09-06 Completed [facility] 00:00:00 [facility] HEPATITIS A 2005-09-06 Completed [facility] 00:00:00 [facility] HEPATITIS A 2005-09-06 Completed [facility] 00:00:00 [facility] Hep A, unspecified 2005-09-06 Completed [facility] 00:00:00 [facility] HEPATITIS A 2005-02-18 Completed [facility] 00:00:00 [facility] HEPATITIS A 2005-02-18 Completed [facility] 00:00:00 [facility] HEPATITIS A 2005-02-18 Completed [facility] 00:00:00 [facility] HEPATITIS A 2005-02-18 Completed [facility] 00:00:00 [facility] HEPATITIS A 2005-02-18 Completed [facility] 00:00:00 [facility] HEPATITIS A 2005-02-18 Completed [facility] 00:00:00 [facility] HEPATITIS A 2005-02-18 Completed [facility] 00:00:00 [facility] Hep A, unspecified 2005-02-18 Completed [facility] 00:00:00 [facility] DTAP 2003-05-12 Completed [facility] 00:00:00 [facility] HIB 4 Dose Schedule 2003-05-12 Completed Unive rsity of 00:00:00 [facility] Pneumococcal 7 2003-05-12 Completed [facility] Conjugate, PCV7 00:00:00 [place] [facility] (Prevnar7) [facility] DTAP 2003-05-12 Completed [facility] 00:00:00 [facility] HIB 4 Dose Schedule 2003-05-12 Completed Unive rsity of 00:00:00 [facility] Pneumococcal 7 2003-05-12 Completed [facility] Conjugate, PCV7 00:00:00 [place] [facility] (Prevnar7) [facility] DTAP 2003-05-12 Completed [facility] 00:00:00 [facility] HIB 4 Dose Schedule 2003-05-12 Completed Unive rsity of 00:00:00 [facility] Pneumococcal 7 2003-05-12 Completed [facility] Conjugate, PCV7 00:00:00 [place] [facility] (Prevnar7) [facility] DTAP 2003-05-12 Completed [facility] 00:00:00 [facility] HIB 4 Dose Schedule 2003-05-12 Completed Unive rsity of 00:00:00 [facility] Pneumococcal 7 2003-05-12 Completed [facility] Conjugate, PCV7 00:00:00 [place] [facility] (Prevnar7) [facility] DTAP 2003-05-12 Completed [facility] 00:00:00 [facility] DTAP 2003-05-12 Completed [facility] 00:00:00 [facility] HIB 4 Dose Schedule 2003-05-12 Completed Unive rsity of 00:00:00 [facility] HIB 4 Dose Schedule 2003-05-12 Completed Unive rsity of 00:00:00 [facility] Pneumococcal 7 2003-05-12 Completed [facility] Conjugate, PCV7 00:00:00 [place] [facility] (Prevnar7) [facility] Pneumococcal 7 2003-05-12 Completed [facility] Conjugate, PCV7 00:00:00 [place] [facility] (Prevnar7) [facility] DTAP 2003-05-12 Completed [facility] 00:00:00 [facility] HIB 4 Dose Schedule 2003-05-12 Completed Unive rsity of 00:00:00 [facility] Pneumococcal 7 2003-05-12 Completed [facility] Conjugate, PCV7 00:00:00 [place] [facility] (Prevnar7) [facility] Hib, unspecified 2003-05-12 Completed [facility]00 [facility] DTaP, unspecified 2003-05-12 Completed [facility] 00:00:00 [facility] pneumococcal, 2003-05-12 Completed [facility] unspecified 00:00:00 [facility] formulation Pneumococcal 7 2003-02-25 Completed [facility] Conjugate, PCV7 00:00:00 [place] [facility] (Prevnar7) [facility] Pneumococcal 7 2003-02-25 Completed [facility] Conjugate, PCV7 00:00:00 [place] [facility] (Prevnar7) [facility] Pneumococcal 7 2003-02-25 Completed [facility] Conjugate, PCV7 00:00:00 [place] [facility] (Prevnar7) [facility] Pneumococcal 7 2003-02-25 Completed [facility] Conjugate, PCV7 00:00:00 [place] [facility] (Prevnar7) [facility] Pneumococcal 7 2003-02-25 Completed [facility] Conjugate, PCV7 00:00:00 [place] [facility] (Prevnar7) [facility] Pneumococcal 7 2003-02-25 Completed [facility] Conjugate, PCV7 00:00:00 [place] [facility] (Prevnar7) [facility] Pneumococcal 7 2003-02-25 Completed [facility] Conjugate, PCV7 00:00:00 [facility] ical (Prevnar7) Branch pneumococcal, 2003-02-25 Completed [facility] unspecified 00:00:00 Health formulation Hep B, Adol or Pedi 2003-02-05 Completed Unive rsity of Dosage 00:00:00 [facility] DTAP 2003-02-05 Completed [facility] 00:00:00 [facility] HIB 4 Dose Schedule 2003-02-05 Completed Unive rsity of 00:00:00 [facility] Polio (IPV/OPV) 2003-02-05 Completed Universit [facility] of 00:00:00 [facility] MMR 2003-02-05 Completed [facility] of 00:00:00 [facility] Varicella 2003-02-05 Completed [facility] (varivax)(chicken pox) 00:00:00 [facility] Hep B, Adol or Pedi 2003-02-05 Completed Unive rsity of Dosage 00:00:00 [facility] DTAP 2003-02-05 Completed [facility] of 00:00:00 [facility] HIB 4 Dose Schedule 2003-02-05 Completed Unive rsity of 00:00:00 [facility] Polio (IPV/OPV) 2003-02-05 Completed [facility] of 00:00:00 [facility] MMR 2003-02-05 Completed [facility] of 00:00:00 [facility] Varicella 2003-02-05 Completed [facility] (varivax)(chicken pox) 00:00:00 [facility] Hep B, Adol or Pedi 2003-02-05 Completed Unive rsity of Dosage 00:00:00 [facility] DTAP 2003-02-05 Completed [facility] of 00:00:00 [facility] HIB 4 Dose Schedule 2003-02-05 Completed Unive rsity of 00:00:00 [facility] Polio (IPV/OPV) 2003-02-05 Completed [facility] of 00:00:00 [facility] MMR 2003-02-05 Completed [facility] of 00:00:00 [facility] Varicella 2003-02-05 Completed [facility] of (varivax)(chicken pox) 00:00:00 [facility] Hep B, Adol or Pedi 2003-02-05 Completed Unive rsity of Dosage 00:00:00 [facility] Hep B, Adol or Pedi 2003-02-05 Completed Unive rsity of Dosage 00:00:00 [facility] DTAP 2003-02-05 Completed [facility] of 00:00:00 [facility] HIB 4 Dose Schedule 2003-02-05 Completed Unive rsity of 00:00:00 [facility] Polio (IPV/OPV) 2003-02-05 Completed [facility] of 00:00:00 [facility] MMR 2003-02-05 Completed [facility] of 00:00:00 [facility] Varicella 2003-02-05 Completed [facility] of (varivax)(chicken pox) 00:00:00 [facility] DTAP 2003-02-05 Completed [facility] of 00:00:00 [facility] Hep B, Adol or Pedi 2003-02-05 Completed Unive rsity of Dosage 00:00:00 [facility] HIB 4 Dose Schedule 2003-02-05 Completed [facility]ive rsity of 00:00:00 [facility] DTAP 2003-02-05 Completed [facility] of 00:00:00 [facility] HIB 4 Dose Schedule 2003-02-05 Completed [facility]ive rsity of 00:00:00 [facility] Polio (IPV/OPV) 2003-02-05 Completed [facility] of 00:00:00 [facility] MMR 2003-02-05 Completed [facility] of 00:00:00 [facility] Varicella 2003-02-05 Completed [facility] of (varivax)(chicken pox) 00:00:00 [facility] Polio (IPV/OPV) 2003-02-05 Completed Univers[facility] of 00:00:00 [facility] MMR 2003-02-05 Completed [facility] of 00:00:00 [facility] Varicella 2003-02-05 Completed [facility] of (varivax)(chicken pox) 00:00:00 [facility] Hep B, Adol or Pedi 2003-02-05 Completed Unive rsity of Dosage 00:00:00 [facility] DTAP 2003-02-05 Completed [facility] of 00:00:00 [facility] HIB 4 Dose Schedule 2003-02-05 Completed Unive rsity of 00:00:00 [facility] Polio (IPV/OPV) 2003-02-05 Completed [facility] 00:00:00 [facility] MMR 2003-02-05 Completed University of 00:00:00 [facility] Varicella 2003-02-05 Completed University of (varivax)(chicken pox) 00:00:00 [facility] 03 2003-02-05 Completed [facility] Hib, unspecified 2003-02-05 Completed [facility] formulation 00:00:00 Health Hep B, unspecified 2003-02-05 Completed [facility] formulation 00:00:00 Health DTaP, unspecified 2003-02-05 Completed [facility] formulation 00:00:00 Health varicella 2003-02-05 Completed [facility] 00:[facility]:00 Health polio, unspecified 2003-02-05 Completed [facility] formulation 00:00:00 Health DTAP 2002 Completed University of 00:00:00 [facility] HIB 4 Dose Schedule 2002 Completed Unive rsity of 00:00:00 [facility] Polio (IPV/OPV) 2002 Completed [facility] 00:00:00 [facility] DTAP 2002 Completed University of 00:00:00 [facility] HIB 4 Dose Schedule 2002 Completed Unive rsity of 00:00:00 [facility] Polio (IPV/OPV) 2002 Completed [facility] 00:00:00 [facility] DTAP 2002 Completed University of 00:00:00 [facility] HIB 4 Dose Schedule 2002 Completed Unive rsity of 00:00:00 [facility] Polio (IPV/OPV) 2002 Completed Universit [facility] of 00:00:00 [facility] DTAP 2002 Completed University of 00:00:00 [facility] HIB 4 Dose Schedule 2002 Completed Unive rsity of 00:00:00 [facility] Polio (IPV/OPV) 2002 Completed [facility]it [facility] 00:00:00 [facility] DTAP 2002 Completed University of 00:00:00 [facility] HIB 4 Dose Schedule 2002 Completed Unive rsity of 00:00:00 [facility] DTAP 2002 Completed University of 00:00:00 [facility] HIB 4 Dose Schedule 2002 Completed Unive rsity of 00:00:00 [facility] Polio (IPV/OPV) 2002 Completed Universit [facility] 00:00:00 [facility] Polio (IPV/OPV) 2002 Completed [facility]it [facility] of 00:00:00 [facility] DTAP 2002 Completed University of 00:00:00 [facility] HIB 4 Dose Schedule 2002 Completed Unive rsity of 00:00:00 [facility] Polio (IPV/OPV) 2002 Completed [facility]it [facility] of 00:00:00 [facility] Hib, unspecified 2002 Completed [facility] formulation 00:00:00 Health DTaP, unspecified 2002 Completed [facility] formulation 00:00:00 Health polio, unspecified 2002 Completed [facility] formulation 00:00:00 Health Polio (IPV/OPV) 2002 Completed [facility] 00:00:00 [facility] Hep B, Adol or Pedi 2002 Completed Unive rsity of Dosage 00:00:00 [facility] DTAP 2002 Completed University of 00:00:00 [facility] HIB 4 Dose Schedule 2002 Completed Unive rsity of 00:00:00 [facility] Pneumococcal 7 2002 Completed University of Conjugate, PCV7 00:00:00 [place] [facility] (Prevnar7) [facility] Polio (IPV/OPV) 2002 Completed Universit [facility] of 00:00:00 [facility] Hep B, Adol or Pedi 2002 Completed Unive rsity of Dosage 00:00:00 [facility] DTAP 2002 Completed University of 00:00:00 [facility] HIB 4 Dose Schedule 2002 Completed Unive rsity of 00:00:00 [facility] Pneumococcal 7 2002 Completed University of Conjugate, PCV7 00:00:00 [place] [facility] (Prevnar7) [facility] Polio (IPV/OPV) 2002 Completed Universit [facility] of 00:00:00 [facility] Hep B, Adol or Pedi 2002 Completed Unive rsity of Dosage 00:00:00 [facility] DTAP 2002 Completed University of 00:00:00 [facility] HIB 4 Dose Schedule 2002 Completed Unive rsity of 00:00:00 [facility] Pneumococcal 7 2002 Completed University of Conjugate, PCV7 00:00:00 [place] [facility] (Prevnar7) [facility] Polio (IPV/OPV) 2002 Completed [facility]it [facility] of 00:00:00 [facility] Hep B, Adol or Pedi 2002 Completed Unive rsity of Dosage 00:00:00 [facility] DTAP 2002 Completed University of 00:00:00 [facility] HIB 4 Dose Schedule 2002 Completed Unive rsity of 00:00:00 [facility] Pneumococcal 7 2002 Completed University of Conjugate, PCV7 00:00:00 [place] [facility] (Prevnar7) [facility] Polio (IPV/OPV) 2002 Completed [facility]it [facility] of 00:00:00 [facility] Hep B, Adol or Pedi 2002 Completed Unive rsity of Dosage 00:00:00 [facility] DTAP 2002 Completed University of 00:00:00 [facility] HIB 4 Dose Schedule 2002 Completed Unive rsity of 00:00:00 [facility] Pneumococcal 7 2002 Completed University of Conjugate, PCV7 00:00:00 [place] [facility] (Prevnar7) [facility] Polio (IPV/OPV) 2002 Completed [facility]it [facility] of 00:00:00 [facility] Hep B, Adol or Pedi 2002 Completed Unive rsity of Dosage 00:00:00 [facility] DTAP 2002 Completed University of 00:00:00 [facility] HIB 4 Dose Schedule 2002 Completed Unive rsity of 00:00:00 [facility] Pneumococcal 7 2002 Completed University of Conjugate, PCV7 00:00:00 [place] [facility] (Prevnar7) [facility] Polio (IPV/OPV) 2002 Completed [facility]it [facility] of 00:00:00 [facility] Hep B, Adol or Pedi 2002 Completed Unive rsity of Dosage 00:00:00 [facility] DTAP 2002 Completed University of 00:00:00 [facility] HIB 4 Dose Schedule 2002 Completed Unive rsity of 00:00:00 [facility] Pneumococcal 7 2002 Completed University of Conjugate, PCV7 00:00:00 [facility] ical (Prevnar7) Branch Hib, unspecified 2002 Completed [facility] formulation 00:00:00 Health Hep B, unspecified 2002 Completed [facility] formulation 00:00:00 Health DTaP, unspecified 2002 Completed [facility] formulation 00:00:00 Health polio, unspecified 2002 Completed [facility] formulation 00:00:00 Health pneumococcal, 2002 Completed [facility] unspecified 00:00:00 Health formulation Hep B, Adol or Pedi 2002 Completed Unive rsity of Dosage 00:00:00 [facility] Hep B, Adol or Pedi 2002 Completed Unive rsity of Dosage 00:00:00 [facility] Hep B, Adol or Pedi 2002 Completed Unive rsity of Dosage 00:00:00 [facility] Hep B, Adol or Pedi 2002 Completed Unive rsity of Dosage 00:00:00 [facility] Hep B, Adol or Pedi 2002 Completed Unive rsity of Dosage 00:00:00 [facility] Branch Hep B, Adol or Pedi 2002 Completed Unive rsity of Dosage 00:00:00 [facility] Branch Hep B, Adol or Pedi 2002 Completed Unive rsity of Dosage 00:00:00 [facility] Hep B, unspecified 2002 Completed [facility] formulation 00:00:00 Health Vital Signs Vital Name Observation Time Observation Value Comments Source Systolic blood 2022-06-02 02:38:00 141 mm[Hg] Univer sity of pressure [facility] Diastolic blood 2022-06-02 02:38:00 97 mm[Hg] Unive rsity of pressure [facility] Heart rate 2022-06-02 02:38:00 104 /min [facility] [place] [facility] [place] Body temperature 2022-06-02 02:38:00 37.89 Tiffany Univ ersity of [place] [facility] Respiratory rate 2022-06-02 02:38:00 20 /min Univ ersity of [facility] Body height 2022-06-02 02:38:00 160 cm [facility] [place] [facility] Body weight 2022-06-02 02:38:00 94.802 kg [facility] [place] [facility] BMI 2022-06-02 02:38:00 37.02 kg/m2 Universi ty of [facility] Oxygen saturation in 2022-06-02 02:38:00 97 /min University of Arterial blood by [facility] Pulse oximetry Branch Systolic blood 2019-07-08 22:37:00 134 mm[Hg] Univer sity of pressure [facility] [place] Diastolic blood 2019-07-08 22:37:00 77 mm[Hg] Unive rsity of pressure [facility] [place] Heart rate 2019-07-08 22:37:00 89 /min [facility] [place] [facility] [place] Body temperature 2019-07-08 22:37:00 36.94 Tiffany Univ ersity of [facility] Branch Respiratory rate 2019-07-08 22:37:00 16 /min Univ ersity of [facility] Body height 2019-07-08 22:37:00 162.6 cm [facility] [place] Body weight 2019-07-08 22:37:00 70.563 kg [facility] [place] [facility] BMI 2019-07-08 22:37:00 26.70 kg/m2 [facility] Systolic blood 2019-07-08 22:37:00 134 mm[Hg] Univer sity of pressure [facility] Diastolic blood 2019-07-08 22:37:00 77 mm[Hg] Unive rsity of pressure [facility] Heart rate 2019-07-08 22:37:00 89 /min Universi ty of [facility] Body temperature 2019-07-08 22:37:00 36.94 Tiffany Univ ersity of [facility] Respiratory rate 2019-07-08 22:37:00 16 /min Univ ersity of [facility] Body height 2019-07-08 22:37:00 162.6 cm [facility] Body weight 2019-07-08 22:37:00 70.563 kg [facility] BMI 2019-07-08 22:37:00 26.70 kg/m2 [facility] blood pressure, 2020-09-30 09:04:08 75 mm[Hg] [facility] diastolic Health blood pressure, 2020-09-30 09:04:08 105 mm[Hg] [facility] systolic Health respiratory rate E&M 2020-09-30 09:04:08 20 /min [facility] pulse rate 2020-09-30 09:04:08 104 /[facility] 2020-09-30 09:04:08 axillary Lega cy [facility] temperature E&M 2020-09-30 09:04:08 98.1 [degF] [facility] Health weight percentile 2020-09-30 09:04:08 98 Leg [facility] weight in kilograms 2020-09-30 09:04:08 96.7 kg L [facility] E& Health weight E&M 2020-09-30 09:04:08 212.74 [lb_av] [facility] percentile 2020-09-30 09:04:08 [facility] 2020-09-30 09:04:08 63.39 [in_i] [facility] pulse rate 2020-08-13 16:05:02 98 /min [facility] respiratory rate E&M 2020-08-13 16:05:02 20 /min [facility] temperature E&M 2020-08-13 16:05:02 98.8 [degF] [facility] y [facility] Health weight E&M 2020-08-13 16:05:02 210 [lb_av] [facility] weight percentile 2020-08-13 16:05:02 98 Leg [facility] weight in kilograms 2020-08-13 16:05:02 95.45 kg L [facility] E& Health temperature site 2020-08-07 13:09:45 oral Lega cy [facility] Health pulse rate 2020-08-07 13:09:45 100 /min [facility] blood pressure, 2020-08-07 13:09:45 81 mm[Hg] [facility] diastolic Health blood pressure, 2020-08-07 13:09:45 111 mm[Hg] [facility] systolic Health respiratory rate E&M 2020-08-07 13:09:45 20 /min [facility] Health temperature E&M 2020-08-07 13:09:45 98.8 [degF] Leg[facility] y [facility] Health oxygen saturation, 2020-08-07 13:09:45 98 /min [facility] oximetry Health height percentile 2020-08-07 13:09:45 37 Leg [facility] Health height E&M 2020-08-07 13:09:45 63.39 [in_i] [facility] weight percentile 2020-08-07 13:09:45 98 Leg [facility] Health weight in kilograms 2020-08-07 13:09:45 96.1 kg L [facility] E&M Health weight E&M 2020-08-07 13:09:45 211.42 [lb_av] [facility] Health temperature E&M 2020-06-02 08:35:53 97.2 [degF] [facility] temperature E&M 2020-04-22 08:26:14 97.1 [degF] Leg y [facility] Health temperature site 2020-04-22 08:26:14 temporal Lega [facility] Health temperature E&M 2020-04-13 08:40:49 97.8 [degF] [facility] Health height percentile 2020-04-06 08:58:16 37 Leg [facility] Health height E&M 2020-04-06 08:58:16 63.39 [in_i] [facility] weight percentile 2020-04-06 08:58:16 96 Leg [facility] Health weight in kilograms 2020-04-06 08:58:16 82.8 kg L [facility] E&M Health weight E&M 2020-04-06 08:58:16 182.16 [lb_av] [facility] Health blood pressure, 2020-04-06 08:58:16 77 mm[Hg] [facility] blood pressure, 2020-04-06 08:58:16 119 mm[Hg] [facility] systolic Health oxygen saturation, 2020-04-06 08:58:16 98 /min [facility] respiratory rate E&M 2020-04-06 08:58:16 20 /min [facility] pulse rate 2020-04-06 08:58:16 106 /min [facility] Health temperature E&M 2020-04-06 08:58:16 98.5 [degF] [facility] 2020-04-06 08:58:16 oral Lega [facility] pulse rate 2020-03-26 12:41:26 115 /min [facility] blood pressure, 2020-03-26 12:41:26 68 mm[Hg] [facility] diastolic [facility] blood pressure, 2020-03-26 12:41:26 104 mm[Hg] [facility] systolic Health respiratory rate E&M 2020-03-26 12:41:26 20 /min [facility] oxygen saturation, 2020-03-26 12:41:26 97 /min [facility] temperature E&M 2020-03-26 12:41:26 98.5 [degF] [facility] height percentile 2020-03-26 12:41:26 21 [facility] height E&M 2020-03-26 12:41:26 62.20 [in_i] [facility] weight percentile 2020-03-26 12:41:26 94 [facility] weight in kilograms 2020-03-26 12:41:26 78.8 kg L [facility] E& Health weight E&M 2020-03-26 12:41:26 173.36 [lb_av] [facility] temperature site 2020-03-26 12:41:26 tympanic Lega [facility] Procedures Procedure Date / Time Performing Clinician Source Performed RAPID INFLUENZA A/B 2022-06-02 03:04:00 Mrak Barton [facility] Medical Branch COVID-19 (ID NOW RAPID 2022-06-02 03:04:00 Mark Barton [facility] NOTICE OF PRIVACY 2022-06-02 02:24:03 Doctor Unassigned, No [facility] Branch CONSENT/REFUSAL FOR 2022-06-02 02:23:49 Doctor Unassigned, No [facility] DI[facility]REATMENT Name Medical Branch Urinalysis - Dip only - 2020-10-08 01:42:26 Sawyer Yeni Perales n [facility] In House Health Urinalysis - - 2020-09-30 09:18:47 Yeni Jacques en [facility] [place] Health Urinalysis - - 2020-08-13 16:47:28 Harrison Grissom [facility] In [facility] Ondansetron (Zofran) 2020-08-07 13:43:43 Harrison Grissom [facility] oral soln Health Urinalysis - - 2020-08-07 13:20:09 Harrison Grissom [facility] Urinalysis - Dip only - 2020-08-07 13:20:09 Harrison Grissom [facility] [place] Health [Q] MISCELLANEOUS 2020-05-05 00:00:00 [facility] Physici ans REFERRAL Urinalysis - - 2020-04-06 09:53:44 Harrison Grissom [facility] General Patient 2020-04-06 09:26:54 [facility] - - 2020-04-06 09:17:48 Harrison Grissom [facility] Rapid Strep - In House 2020-03-26 13:39:47 Harrison Grissom [facility] Ondansetron (Zofran) 2020-03-26 13:39:47 Harrison Grissom [facility] oral critical access hospital Health BLOOD COUNT HEMOGLOBIN 2020-03-26 13:37:20 Harrison Grissom [facility] Health REFERRAL- 2020-03-26 05:01:00 Doctor Unassigned, No Univer [facility] REQUEST/RESPONSE Name Medical Branch [L] PFA Platelet 2020-01-01 00:00:00 [facility] Physicia [...] 2020-01-01 00:00:00 UT Physician s ACTIVITY, CLAUSS FLU VACC ([id number]), 6+ 2019-07-08 22:51:55 Zina Castro [facility] MONTHS, IM, QUAD Medical Branch VACCINATION OF A MINOR 2019-07-08 22:15:43 Doctor Unassigned, No [facility] Medical Branch Plan of Care Planned Activity Planned Date Details Comments Source Future Scheduled Test 2020-05-13 [Q] MISCELLANEOUS [facility] 00:00:00 REFERRAL [code = [Q] MISCELLANEOUS REFERRAL] Future Scheduled Test 2020-05-13 [Q] MISCELLANEOUS [facility] 00:00:00 REFERRAL [code = [Q] MISCELLANEOUS REFERRAL] Diagnostic Test 2020-01-01 [L] PFA Platelet UT [...] CLAUSS [code = [QL] FIBRINOGEN ACTIVITY, CLAUSS] Encounters Start End Encounter Admission Attending Care Care Encounter Source Date/Time Date/Time Type Type Clinicians Facility Department ID 2022-05-16 Outpatient .aowens [facility] [id number] Legacy 20:41:13 [id number] [facility] 2022-06-01 2022-06-01 Emergency [facility] E[facility] [id number] Univers 20:41:00 21:56:00 MARK vaughan [facility] 2022-06-01 2022-06-01 Emergency Mick [facility] [id number] Univers 20:41:00 21:56:00 Mark IZAGUIRRE [id number] i ty [facility] [id number] [facility] [id number] [facility] 084 Branch 2022-06-01 2022-06-01 Orders Doctor YOUNG [id number] Univers 00:00:00 00:00:00 Only Unassigned, DAVID [id number] ity of [place] [facility] [id number] [facility] [id number] [facility] 009 Branch 2020-09-04 2020-09-04 Office [facility] Enco unter/ Legacy 00:00:00 00:00:00 Visit Faviola Alarcon 19 [id number] Matt Avelar [id number] Health 2020-08-07 2020-08-07 Emergency FELIPE CAMEJOET QER [id number] 15:11:00 15:11:00 [id number] Hospi ta l ([facility]) 2020-08-07 2020-08-07 Office GARRY Grissom [facility] Encounter/ Legacy 00:00:00 00:00:00 Visit Harrison [id number] Com abdirahman [id number] ty Health 2020-08-07 2020-08-07 Office GARRY Grissom [facility] Encounter/ Legacy 00:00:00 00:00:00 Visit Harrison [id number] Com abdirahman [id number] ty Health 2020-08-07 2020-08-07 Office Harrison Grissom [facility] Enco unter/ Legacy 00:00:00 00:00:00 Visit Paulette Villasenor [id number] Communi [id number] Health 2020-07-16 2020-07-16 Emergency NANCY SAGASTUME SSET QER [id number] Buddhism 15:51:00 15:51:00 [id number] Hospi ta l ([facility]) 2020-07-16 2020-07-16 Office Harrison Grissom [facility] Enco unter/ Legacy 00:00:00 00:00:00 Visit Deann Gonsalves [id number] Brandi Vargas [id number] [facility] 2020-06-04 2020-06-04 Office GARRY Britton [facility] Encounter/ Legacy 00:00:00 00:00:00 Visit Danica [id number] Com abdirahman [id number] [facility] 2020-06-02 2020-06-02 Office [facility] En[facility]/ Legacy 00:00:00 00:00:00 Visit Danica Britton [id number] Communi [id number] Health 2020-06-02 2020-06-02 Office GARRY Grissom [facility] Encounter/ Legacy 00:00:00 00:00:00 Visit Harrison [id number] Com abdirahman [id number] Health 2020-06-02 2020-06-02 Office Yeni Jacques [facility] Encounter/ Legacy 00:00:00 00:00:00 Visit Danica Britton [id number] Mary Fenton [id number] Danette Gutierres [facility] 2020-06-02 2020-06-02 Office GARRY Britton [facility] Encounter/ Legacy 00:00:00 00:00:00 Visit Danica [id number] Com abdirahman [id number] Health 2020-05-18 2020-05-18 Office AbPIERCE [facility] Encoun[facility] r/ Legacy 00:00:00 00:00:00 Visit Antolin [id number] Com abdirahman [id number] Health 2020-05-13 2020-05-13 Appointmen ADULT, UTP UTP [id number] [place] 10:00:00 10:00:00 t; ADULT, HEMOPHILIA P hysici HEMOPHILIA ans 2020-05-13 2020-05-13 Office Status, Fax [facility] Encoun ter/ Legacy 00:00:00 00:00:00 Visit [id number] Com abdirahman [id number] ty Health 2020-05-13 2020-05-13 Office Status, Fax [facility] Encoun ter/ Legacy 00:00:00 00:00:00 Visit [id number] Com abdirahman [id number] Health 2020-05-13 2020-05-13 Office Status, Fax [facility] Encoun ter/ Legacy 00:00:00 00:00:00 Visit [id number] Com abdirahman [id number] ty Health 2020-05-13 2020-05-13 Office Status, Fax [facility] Encoun ter/ Legacy 00:00:00 00:00:00 Visit [id number] Com abdirahman [id number] ty Health 2020-05-13 2020-05-13 Office Status, Fax [facility] Encoun ter/ Legacy 00:00:00 00:00:00 Visit [id number] Com abdirahman [id number] Health 2020-04-27 2020-04-27 Office Abu Sulb [facility] Encounte r/ Legacy 00:00:00 00:00:00 Visit Antolin [id number] Com abdirahman [id number] Health 2020-04-24 2020-04-24 Outpatient R [facility] [id number] Univers 14:10:00 14:10:00 [facility] 2020-04-22 2020-04-22 Office Abu SulGARRY simpson Encounte r/ Legacy 00:00:00 00:00:00 Visit Antolin [id number] Com abdirahman [id number] ty Health 2020-04-22 2020-04-22 Office Abu Antolin Biswas PIERCE En counter/ Legacy 00:00:00 00:00:00 Visit Sourav Ocampo [id number] Mary Fenton [id number] ty Health 2020-04-22 2020-04-22 Office GARRY Britton Encounter/ Legacy 00:00:00 00:00:00 Visit Danica [id number] Com abdirahman [id number] Health 2020-04-20 2020-04-20 Office Abu [facility]CE [facility] Encoun[facility]/ Legacy 00:00:00 00:00:00 Visit Antolin [id number] Com abdirahman [id number] Health 2020-04-16 2020-04-16 Outpatient R [facility] [id number] Univers 10:30:00 10:30:00 [facility] 2020-04-15 2020-04-15 Office GARRY Grissom Encounter/ Legacy 00:00:00 00:00:00 Visit Harrison [id number] Com abdirahman 295503 ty Health 2020-04-15 2020-04-15 Office GARRY rBitton Encounter/ Legacy 00:00:00 00:00:00 Visit Danica [id number] Com abdirahman 420002 ty Health 2020-04-14 2020-04-14 Office GARRY Grissom Encounter/ Legacy 00:00:00 00:00:00 Visit Harrison [id number] Com abdirahman [id number] ty Health 2020-04-13 2020-04-13 Office GARRY Grissom Encounter/ Legacy 00:00:00 00:00:00 Visit Harrison [id number] Com abdirahman [id number] ty Health 2020-04-13 2020-04-13 Office Harrison [facility] Enco unter/ Legacy 00:00:00 00:00:00 Visit Tobi Danica [id number] Communi [id number] ty Health 2020-04-13 2020-04-13 Office GrissomGARRY LC Encounter/ Legacy 00:00:00 00:00:00 Visit Harrison [id number] Com abdirahman [id number] ty Health 2020-04-09 2020-04-09 Office GrissomPIERCE LC Encounter/ Legacy 00:00:00 00:00:00 Visit Harrison [id number] Com abdirahman [id number] ty Health 2020-04-06 2020-04-06 Office GARRY Grissom Encounter/ Legacy 00:00:00 00:00:00 Visit Harrison [id number] Com abdirahman 228574 ty Health 2020-04-06 2020-04-06 Office GARRY Grissom [facility] Encounter/ Legacy 00:00:00 00:00:00 Visit Harrison [id number] Com abdirahman [id number] ty Health 2020-04-06 2020-04-06 Office GrissomPIERCE LC Encounter/ Legacy 00:00:00 00:00:00 Visit Harrison [id number] Com abdirahman 373164 ty Health 2020-04-06 2020-04-06 Office GrissomGARRY LC Encounter/ Legacy 00:00:00 00:00:00 Visit Harrison [id number] Com abdirahman [id number] ty Health 2020-04-06 2020-04-06 Office Harrison Grissom [facility] Enco unter/ Legacy 00:00:00 00:00:00 Visit Sangeeta Mckeon [id number] Adriana Goodwin [id number] ty Tenzin Smiley ealt 2020-04-06 2020-04-06 Office Grissom, PIERCE [facility] Encounter/ Legacy 00:00:00 00:00:00 Visit Harrison [id number] Com abdirahman [id number] ty Health 2020-04-06 2020-04-06 Office GARRY Grissom [facility] Encounter/ Legacy 00:00:00 00:00:00 Visit Harrison [id number] Com abdirahman [id number] ty Health 2020-03-31 2020-03-31 Office Danette Gutierres [facility] Encounter/ Legacy 00:00:00 00:00:00 Visit Deann Gonsalves [id number] Eulogio Brandi Nathan [id number] Carisa Min Health 2020-03-30 2020-03-30 Office Grissom, [facility] Encounter/ Legacy 00:00:00 00:00:00 Visit Harrison [id number] Com abdirahman [id number] ty Health 2020-03-30 2020-03-30 Office Harrison Grissom [facility] Enco unter/ Legacy 00:00:00 00:00:00 Visit Enma Sanabria [id number] Danette Peralta [id number] ty Health 2020-03-28 2020-03-28 Office Grissom, [facility] Encounter/ Legacy 00:00:00 00:00:00 Visit Harrison [id number] Com abdirahman [id number] ty Health 2020-03-27 2020-03-27 Office Grissom, PIERCE LC Encounter/ Legacy 00:00:00 00:00:00 Visit Harrison [id number] Com abdirahman 379229 ty Health 2020-03-27 2020-03-27 Office Grissom, LC LC Encounter/ Legacy 00:00:00 00:00:00 Visit Harrison [id number] Com abdirahman 458784 ty Health 2020-03-27 2020-03-27 Office Grissom, LC [facility] Encounter/ Legacy 00:00:00 00:00:00 Visit Harrison [id number] Com abdirahman 456131 ty Health 2020-03-26 2020-03-26 Office Grissom, LC [facility] Encounter/ Legacy 00:00:00 00:00:00 Visit Harrison [id number] Com abdirahman 755880 ty Health 2020-03-26 2020-03-26 Office GrissomHarrison macias LC Enco unter/ Legacy 00:00:00 00:00:00 Visit Sangeeta Mckeon [id number] Sujey Aguillon 991658 ty Health 2020-03-26 2020-03-26 Office GARRY Grissom [facility] Encounter/ Legacy 00:00:00 00:00:00 Visit Harrison [id number] Com abdirahman 878474 Health 2020-03-26 2020-03-26 [facility] 00:00:00 00:00:00 Visit Harrison [id number] Com abdirahman [id number] Health 2020-03-26 2020-03-26 Office [facility] Legacy 00:00:00 00:00:00 Visit Harrison [id number] Com abdirahman 527631 Health 2020-03-26 2020-03-26 Orders Doctor HANNAH 1.2.840.114 [id number] 00:00:00 00:00:00 Only Unassigned, DAVID 350.1.13.10 [facility] 4.2.7.2.686 [id number] [id number] 2020-03-26 2020-03-26 Orders Doctor HANNAH 1.2.840.114 [id number] Univers 00:00:00 00:00:00 Only Unassigned, DAVID 350.1.13.10 ity of [facility] 4.2.7.2.686 [place] as [phone] [address] 2020-03-24 2020-03-24 Appointmen LORI DOUGLAS Pediatric [id number] [place] 15:00:00 15:00:00 t; SARAH DOUGLAS, Primary Ankit SMITH M.D. [facility] Rodrigo walsh M.D. [facility] 2020-03-19 2020-03-19 Appointmen LORI DOUGLAS [facility] [id number] [place] 14:00:00 14:00:00 t; SARAH DOUGLAS Phy sici REBECCA, M.D. ans M.D. 2020-02-21 2020-02-21 Office Kenyatta Tolliver [facility] En counter/ Legacy 00:00:00 00:00:00 Visit Noemi Adkins [id number] Ricarda Thrasher [id number] Health 2020-02-19 2020-02-19 Office GARRY Adkins [facility] Encounter/ Legacy 00:00:00 00:00:00 Visit Noemi [id number] Com abdirahman 616009 [facility] 2020-02-14 2020-02-14 Office Jed Noemi [facility] En counter/ Legacy 00:00:00 00:00:00 Visit Adriana Moya [id number] Communi [id number] [facility] 2020-02-14 2020-02-14 Office Kellie, [facility] Encounter/ Legacy 00:00:00 00:00:00 Visit Leandra [id number] C ommuni [id number] [facility] 2020-01-17 2020-01-17 Emergency RUTHANN ALPA QER [id number] 368- [id number] 17:10:00 17:10:00 ROSE [id number] Hospi ta l ([facility]) 2020-01-11 2020-01-11 Office Aime, [facility] Encounter / Legacy 00:00:00 00:00:00 Visit Luiz [id number] Co mmuni [id number] [facility] 2020-01-11 2020-01-11 Office Grissom, [facility] Encounter/ Legacy 00:00:00 00:00:00 Visit Harrison [id number] Com abdirahman 838416 [facility] 2019-12-31 2019-12-31 AppointLORI Garcia Pediatric [id number] 093 [place] 11:00:00 11:00:00 t; KATRIN FANG M.D. Primary P barb WILKES M.D. [facility] 2019-12-24 2019-12-24 Outpatient R [facility] [id number] Univers 15:00:00 15:00:00 ity of [facility] 2019-09-30 2019-09-30 Nurse Visit, [facility] 1.2.840.114 [id number] 35 14:59:48 15:14:48 Visit NighatSuny [facility] [employer] 350.1.13.10 Nurse [facility] 4.2.7.2.686 MATERNAL [id number] & CHILD [address] [place] [address] 2019-09-30 2019-09-30 Nurse Visit, [facility] Nurse [facility] 1.2 .840.114 [id number] [facility] 14:59:48 15:14:48 Visit Jones, Roshunda R [employer] 350.1.13.10 ity of [facility] 4.2.7.2.686 [place] as MATERNAL [phone] [facility] ical & CHILD [address] [place] [address] 2019-09-30 2019-09-30 Outpatient R [facility] [id number] Univers 15:00:00 15:00:00 ity of [facility] 2019-09-27 2019-09-27 Telephone Visit, [facility] [id number] 00:00:00 00:00:00 [facility] [employer] 350.1.13.10 Nurse [facility] 4.2.7.2.686 MATERNAL [phone] & CHILD [address] [place] [address] 2019-09-27 2019-09-27 Telephone Visit, [facility] [id number] [facility] 00:00:00 00:00:00 [facility] [employer] 350.1.13.10 ity of Nurse [facility] 4.2.7.2.686 [place] as MATERNAL [phone] [facility] ical & CHILD [address] [place] [address] 2019-07-08 2019-07-08 Office Akinformerly [facility], [facility] 1.2.553.255 [id number] [facility] 16:17:41 17:40:44 Visit Zina C [employer] 350.1.13.10 ity of REGIONAL 4.2.7.2.686 [place] as MATERNAL [phone] [facility] & CHILD [address] [place] [address] 2019-07-08 2019-07-08 Office [facility], [facility] [id number] [id number] 16:17:41 17:40:44 Visit Zina C [employer] 350.1.13.10 REGIONAL 4.2.7.2.686 MATERNAL [phone] & CHILD [address] [place] [address] 2019-07-08 2019-07-08 Orders Doctor YOUNG 1.2.840.114 [id number] Univers 00:00:00 00:00:00 Only Unassigned, DAVID 350.1.13.10 ity of [place] [facility] 4.2.7.2.686 [place] as [phone] [address] 2019-06-26 2019-06-26 Telephone Augustine, [facility] 1.2.840.114 [id number] [facility] 00:00:00 00:00:00 Dionne Anjelica [employer] 350.1.13.10 it y [facility] 4.2.7.2.686 [place] as MATERNAL [id number] Med ical & CHILD [address] [place] [address] 2018-09-21 2018-09-21 AppointLORI Ivan [facility] [id number] [place] 14:30:00 14:30:00 t; BELLA CHAPMAN Ph ysici BELLA ans 2018-05-23 2018-05-23 Appointjose antonio ALARCONLORI UTP [id number] [place] 13:30:00 13:30:00 t; SANGEETA ALARCON Phys ici NEETHU, M.D. ans M.D. 2018-04-11 2018-04-11 Barneyjose antonio LORI ALARCON [facility] [id number] [place] 14:00:00 14:00:00 t; SANGEETA ALARCON Phys ici NEETHU, M.D. ans M.D. 2018-04-11 2018-04-11 Barneyjose antonio DORIAN [facility] UTP [id number] [place] 14:00:00 14:00:00 t; SANGEETA ALARCON Phys ici NEETHU, M.D. ans M.D. Results Test Description Test Time Test Comments Results Result Comments Source glucose, urine, semiquantitative 2020-09-30 09:04:08 Test Item Value Reference Range Interpretation Comme nts glucose, urine, semiquantitative (test code = 5792-7) negative [facility], disfa6689-52-73 09:04:08 Test Item Value Reference Range Interpretation Comments specific gravity, urine 1.020 (unknown unit) (test code = 5811-5) [facility]protein, urine, semiquantitative (dipstick)2020-09-30 09:04:08 Test Item Value Reference Range Interpretation Comments protein, urine, semiquantitative negative (dipstick) (test code = 1753-3) [facility]usleukocyte esterase, urine, by mjcsgjgo4774-00-65 09:04:08 Test Item Value Reference Range Interpretation Comments leukocyte esterase, urine, by negative dipstick (test code = 5799-2) [facility]usbilirubin, veeyr9869-12-64 09:04:08 Test Item Value Reference Range Interpretation Comments bilirubin, urine (test code = negative 5770-3) [facility] in urine (hemoglobin) by rsduczqp3771-76-88 09:04:08 Test Item Value Reference Range Interpretation Comments blood in urine (hemoglobin) by negative dipstick (test code = 4998) [facility]usurobilinogen, urine, semiquantitative (dipstick) 2020-09-30 09:04:08 Test Item Value Reference Range Interpretation Comments urobilinogen, urine, negative semiquantitative (dipstick) (test code = 5818-0) [facility]usappearance, vdnfg8868-26-75 09:04:08 Test Item Value Reference Range Interpretation Comments appearance, urine (test code = 5767-9) clear [facility]usketones, urine, by test lzynd2190-64-13 09:04:08 Test Item Value Reference Range Interpretation Comments ketones, urine, by test strip (test negative code = 5797-6) [facility]uspH, urine, qgfwkiosvzjwtqwe6682-23-13 09:04:08 Test Item Value Reference Range Interpretation Comments pH, urine, semiquantitative 7.0 (unknown (test code = 5803-2) unit) [facility]usnitrite, urine, lnzbswbttbwlhnkp0141-53-27 09:04:08 Test Item Value Reference Range Interpretation Comments nitrite, urine, semiquantitative negative (test code = 5802-4) [facility]usurine dywzk5037-77-95 09:04:08 Test Item Value Reference Range Interpretation Comments urine color (test code = 5778-6) yellow [facility]usbeta HCG, urine, derofpqywipngizw7295-33-35 09:04:08 Test Item Value Reference Range Interpretation Comments beta HCG, urine, semiquantitative negative (test code = 2106-3) [facility]arrusthyroid stimulating hormone, hqixr1056-36-79 09:21:00 Test Item Value Reference Range Interpretation Comments thyroid stimulating hormone, 2.040 u[IU]/mL 0.450-4.500 serum (test code = 3016-3) [facility]usHIV-CMIA (Chemiluminescent Microparticle Immuno Assay) 2020-09-24 09:21:00 Test Item Value Reference Range Interpretation Comments HIV-CMIA (Chemiluminescent Non Reactive Non Reactive Microparticle Immuno Assay) (test code = 084776) [facility]ushemoglobin A1C, blood, as % of total tehcijzysd7064-33-87 09:21:00 Test Item Value Reference Range Interpretation Comments hemoglobin A1C, blood, as % of total 4.9 % 4.8-5.6 hemoglobin (test code = 4548-4) [facility]usLDL cholesterol, okgnv3807-46-95 09:21:00 Test Item Value Reference Range Interpretation Comments LDL cholesterol, serum (test code = 147 mg/dL 0-109 H 2088-06) [facility]usvery low density xmytwnhcqjwc0374-16-46 09:21:00 Test Item Value Reference Range Interpretation Comments very low density lipoproteins (test 33 mg/dL 5-40 code = 2090-7) [facility]usHDL cholesterol, ctfno3049-16-35 09:21:00 Test Item Value Reference Range Interpretation Comments HDL cholesterol, serum (test code = 39 mg/dL >39 L 2085-02) [facility]ustriglyceride, serum, sksfumr8109-60-75 09:21:00 Test Item Value Reference Range Interpretation Comments triglyceride, serum, fasting (test 182 mg/dL 0-89 H code = 2571-8) [facility]uscholesterol, fubtg1480-73-53 09:21:00 Test Item Value Reference Range Interpretation Comments cholesterol, serum (test code = 219 mg/dL 100-169 H 2092-08) [facility]arrusalanine aminotransferase (SGPT), kfddx7977-94-68 09:21:00 Test Item Value Reference Range Interpretation Comments alanine aminotransferase (SGPT), serum 24 1/L 0-32 (test code = 1742-6) [facility]arrusaspartate aminotransferase (SGOT), utndy7185-20-40 09:21:00 Test Item Value Reference Range Interpretation Comments aspartate aminotransferase (SGOT), 33 1/L 0-40 serum (test code = 1920-8) [facility]usalkaline phosphatase, tenyf0387-96-08 09:21:00 Test Item Value Reference Range Interpretation Comments alkaline phosphatase, serum (test 162 1/L 43-101 H code = 1783-0) [facility]ilirubin, serum, pzaia7639-01-40 09:21:00 Test Item Value Reference Range Interpretation Comments bilirubin, serum, total (test code 0.4 mg/dL 0.0-1.2 = 1974-2) [facility] Healthalbumin/globulin ratio, uzqrb1663-89-49 09:21:00 Test Item Value Reference Range Interpretation Comments albumin/globulin ratio, 1.9 (unknown unit) 1.2-2.2 serum (test code = 1759-0) [facility] Healthglobulin, kikhb6242-76-24 09:21:00 Test Item Value Reference Range Interpretation Comments globulin, serum (test code 2.5 (unknown unit) 1.5-4.5 = 2336-6) [facility] Healthalbumin, fktfm1407-38-05 09:21:00 Test Item Value Reference Range Interpretation Comments albumin, serum (test code = 1751-7) 4.8 g/dL 3.9-5.0 [facility]usprotein, total, upotk7645-32-46 09:21:00 Test Item Value Reference Range Interpretation Comments protein, total, serum (test code = 7.3 g/dL 6.0-8.5 2885-2) [facility]uscalcium, bgtbc0682-42-50 09:21:00 Test Item Value Reference Range Interpretation Comments calcium, serum (test code = 10.0 mg/dL 8.7-10.2 1999-) [facility]uscarbon dioxide, venous cwegf1772-90-26 09:21:00 Test Item Value Reference Range Interpretation Comments carbon dioxide, venous blood (test 21 mmol/L code = 7-1) [facility]uschloride, fhcos2330-03-13 09:21:00 Test Item Value Reference Range Interpretation Comments chloride, serum (test code = 100 mmol/L 96-106 5-0) [facility]uspotassium, mtdhl0708-95-96 09:21:00 Test Item Value Reference Range Interpretation Comments potassium, serum (test code = 4.6 mmol/L 3.5-5.2 2823-3) [facility]ussodium, ztati6810-97-39 09:21:00 Test Item Value Reference Range Interpretation Comments sodium, serum (test code = 2951-2) 139 mmol/L 134-144 [facility]arrusurea nitrogen/creatinine ratio, hbiog9806-00-00 09:21:00 Test Item Value Reference Range Interpretation Comments urea nitrogen/creatinine 13 (unknown unit) 9-23 ratio, serum (test code = 3097-3) [facility] HealtheGFR if Netlmybf0732-48-86 09:21:00 Test Item Value Reference Range Interpretation Comments eGFR if 112 mL/min/{1.73 m2} >59 (test code = 38367-7) [facility]arrusEstimated Glomerular Filtration Rate (calc)2020-09-24 09:21:00 Test Item Value Reference Range Interpretation Comments Estimated Glomerular 98 mL/min/{1.73 m2} >59 Filtration Rate (calc) (test code = 39005-9) [facility]uscreatinine, lsmrk1139-74-09 09:21:00 Test Item Value Reference Range Interpretation Comments creatinine, serum (test code = 0.87 mg/dL 0.57-1.00 2160-0) [facility]arrusurea nitrogen, frgyb0962-03-69 09:21:00 Test Item Value Reference Range Interpretation Comments urea nitrogen, blood (test code = 11 mg/dL 6-20 3094-0) [facility]usblood glucose, ovrwdj3019-70-71 09:21:00 Test Item Value Reference Range Interpretation Comments blood glucose, random (test code = 83 mg/dL 65-99 2339-0) [facility]arrusimmature granulocytes, percentage of total cells, blood 2020-09-24 09:21:00 Test Item Value Reference Range Interpretation Comments immature granulocytes, percentage of 0 % total cells, blood (test code = 50965-1) [facility]arrusbasophil count, mpyfcwny4971-06-60 09:21:00 Test Item Value Reference Range Interpretation Comments basophil count, absolute (test 0.0 x10E3/uL 0.0-0.2 code = 05745-4) [facility]arrusEosinophil Absolute Cebeq5203-42-33 09:21:00 Test Item Value Reference Range Interpretation Comments Eosinophil Absolute Count (test 0.4 X10E3/UL 0.0-0.4 code = 29483-3) [facility]usmonocyte count, blood, qkauikuif8709-01-83 09:21:00 Test Item Value Reference Range Interpretation Comments monocyte count, blood, automated 0.4 X10E3/UL 0.1-0.9 (test code = 742-7) [facility]uslymphocyte count, blood, gjnptihpl3382-20-65 09:21:00 Test Item Value Reference Range Interpretation Comments lymphocyte count, blood, 2.1 X10E3/UL 0.7-3.1 automated (test code = 731-0) [facility]usAbsolute Givualllikl9914-03-82 09:21:00 Test Item Value Reference Range Interpretation Comments Absolute Neutrophils (test code 3.0 X10E3/UL 1.4-7.0 = 12825-7) [facility]usbasophils as percent of blood uaisnzsmnm1177-17-68 09:21:00 Test Item Value Reference Range Interpretation Comments basophils as percent of blood 1 % leukocytes (test code = 707-0) [facility]arruseosinophils as percent of blood swshfliumz1864-29-36 09:21:00 Test Item Value Reference Range Interpretation Comments eosinophils as percent of blood 7 % leukocytes (test code = 713-8) [facility]usmonocytes as percent of blood tpsadolskm8176-29-43 09:21:00 Test Item Value Reference Range Interpretation Comments monocytes as percent of blood 7 % leukocytes (test code = 5905-5) [facility]uslymphocytes as percent of blood ngnsqgumtc2858-25-17 09:21:00 Test Item Value Reference Range Interpretation Comments lymphocytes as percent of blood 35 % leukocytes (test code = 736-9) [facility]usneutrophils as percent of blood moqklztprv3527-73-01 09:21:00 Test Item Value Reference Range Interpretation Comments neutrophils as percent of blood 50 % leukocytes (test code = 770-8) [facility]arrusplatelet jugeh0444-78-87 09:21:00 Test Item Value Reference Range Interpretation Comments platelet count (test code = 307 X10E3/UL 150-450 777-3) [facility]arrusred blood cell distribution tmiqi9519-52-07 09:21:00 Test Item Value Reference Range Interpretation Comments red blood cell distribution width 13.3 % 11.7-15.4 (test code = 788-0) [facility]arrusmean corpuscular hemoglobin concentration, HZY7064-95-49 09:21:00 Test Item Value Reference Range Interpretation Comments mean corpuscular hemoglobin 33.9 G/DL 31.5-35.7 concentration, RBC (test code = 786-4) [facility]usmean corpuscular hemoglobin, KFQ8506-14-93 09:21:00 Test Item Value Reference Range Interpretation Comments mean corpuscular hemoglobin, RBC 28.9 pg 26.6-33.0 (test code = 785-6) [facility]usmean corpuscular volume, OJY2424-19-22 09:21:00 Test Item Value Reference Range Interpretation Comments mean corpuscular volume, RBC (test code 85 fL 79-97 = 787-2) [facility]ushematocrit, mngon8354-24-65 09:21:00 Test Item Value Reference Range Interpretation Comments hematocrit, blood (test code = 4544-3) 45.7 % 34.0-46.6 [facility]ushemoglobin, mmbah0590-11-69 09:21:00 Test Item Value Reference Range Interpretation Comments hemoglobin, blood (test code = 15.5 g/dL 11.1-15.9 718-7) [facility]arruserythrocyte (RBC) cgrpr4582-64-64 09:21:00 Test Item Value Reference Range Interpretation Comments erythrocyte (RBC) count (test 5.36 X10E6/UL 3.77-5.28 H code = 789-8) [facility]usleukocyte count, goapc1793-20-76 09:21:00 Test Item Value Reference Range Interpretation Comments leukocyte count, blood (test 6.0 X10E3/UL 3.4-10.8 code = 6690-2) [facility]arrusCT ABDOMEN/PELVIS KCVM5304-15-78 20:32:00 [facility] JACQUIE RICKIMP : 2000 [facility] [place], [place] [id number] IMAGING REPORTPatient Name: Savanna ALARCON of Service: [id number]: 20 Sex: F Order #: [id number] Room: ERSDOB: 2000 X-Ray Number: [id number] Record Number: [id number] Hospital Number: [id number] Physician: FELIPE CAMEJO Physician: FELIPE CAMEJO SPROCEDURE: [...] HCGIPC) HCG LOT # (test code = [id number] UHCGLOT) HCG EXPIRATION DATE (test code = UHCGEXP) [id number] 19:20:00 Test Item Value Reference Range Interpretation [...] code = UAMICRO) NO HEPATITIS C ANTIBODY [id number] 18:57:00 Test Item Value Reference Range Interpretation [...] re sults will follow. BMP, BASIC METABOLIC [id number] 18:20:00 Test Item Value Reference Range Interpretation [...] glucose = GLUCOSE) normal <100 MG/ DL- [employer] recommendation* * CALCIUM (test code 9.9 MG/DL 8.4-10.2 = CABLOOD) GFR (test code = 138 A GFR of >9 0 GFR) mL/min/1.73m2 mL/min/1.73m2 is considered norm al. The GFR calcula tion on patients ove r 70 years of age is not validated by e computer programmer chief an d may not represent t he patients true r enal function. [id number] 18:20:00 Test Item Value Reference Range Interpretation Comments LIPASE (test code = LIPA) 119 U/L 23-300 LIVER [id number] 18:20:00 Test Item Value Reference Range Interpretation [...] (test code = ALTV) 30 U/L 13-69 [id number] 17:54:00 Test Item Value Reference Range Interpretation [...] code 4.2 K/UL 1.2-7.2 = NEUT) urine glirejl2398-92-41 14:31:00 Test Item Value Reference Range Interpretation Comments urine culture (test code = 630-4) No growth [facility]usbeta HCG, urine, crtbnfaqgbwrfcpg6700-89-71 13:09:45 Test Item Value Reference Range Interpretation Comments beta HCG, urine, semiquantitative negative (test code = 2106-3) [facility]usblood in urine (hemoglobin) by wxcpwgte8631-17-58 13:09:45 Test Item Value Reference Range Interpretation Comments blood in urine (hemoglobin) by dipstick 1+ (test code = 4998) [facility] HealthpH, urine, gksellgbbphmetkj8636-97-57 13:09:45 Test Item Value Reference Range Interpretation Comments pH, urine, semiquantitative 5.5 (unknown (test code = 5803-2) unit) [facility]arrusspecific gravity, xsqsf4757-97-37 13:09:45 Test Item Value Reference Range Interpretation Comments specific gravity, urine 1.010 (unknown unit) (test code = 5811-5) [facility]usglucose, urine, ckqeybfhegsrztin1446-53-23 13:09:45 Test Item Value Reference Range Interpretation Comments glucose, urine, semiquantitative negative (test code = 5792-7) [facility]arrusbilirubin, kktjm0395-52-61 13:09:45 Test Item Value Reference Range Interpretation Comments bilirubin, urine (test code = negative 5770-3) [facility]arrusketones, urine, by test qzcsc1580-72-37 13:09:45 Test Item Value Reference Range Interpretation Comments ketones, urine, by test strip (test negative code = 5797-6) [facility]usprotein, urine, semiquantitative (dipstick)2020-08-07 13:09:45 Test Item Value Reference Range Interpretation Comments protein, urine, semiquantitative negative (dipstick) (test code = 1753-3) [facility]arrusurobilinogen, urine, semiquantitative (dipstick) 2020-08-07 13:09:45 Test Item Value Reference Range Interpretation Comments urobilinogen, urine, negative semiquantitative (dipstick) (test code = 5818-0) [facility]arrusnitrite, urine, bhgltnozonvmnird2958-59-98 13:09:45 Test Item Value Reference Range Interpretation Comments nitrite, urine, semiquantitative negative (test code = 5802-4) [facility]arrusleukocyte esterase, urine, by vnrzjcmd3184-62-17 13:09:45 Test Item Value Reference Range Interpretation Comments leukocyte esterase, urine, by negative dipstick (test code = 5799-2) [facility]arrusappearance, nneir5985-60-60 13:09:45 Test Item Value Reference Range Interpretation Comments appearance, urine (test code = 5767-9) clear [facility]arrusurine nyurx6503-61-69 13:09:45 Test Item Value Reference Range Interpretation Comments urine color (test code = 5778-6) yellow [facility] CabarrusWHOLE BLOOD EGQOCIR2541-25-68 19:05:00 Test Item Value Reference Range Interpretation Comments WHOLE BLOOD GLUCOSE 130 MG/DL 70-99 H Fastin g glucose (test code = POC GLU) normal <100 MG/DL- [employer] recommend ation CT ABDOMEN/PELVIS [id number] 07:03:00 [facility] MAD[facility]HA ALARCON : 2000 [facility] [place], [place] [address]XVMOZZJWHT IMAGING REPORTPatient Name: Savanna ALARCON of Service: [id number]: 20 Sex: F Order #: [id number] [facility] 2000 X-[facility] Number: [id number] Record Number: [id number] Hospital Number: [id number] Physician: TANIKA, ALIOrdering Physician: TALIB MACDONALD abdomen and pelvis.History: Nausea, vomitingTechnique: IV contrast enhanced CT images.Contrast administered for this study per protocol; Vonxbw-698-[address] exam was performed using one [...] AMLegally authenticated by HEATHER MCCABE JR 2020-07-17 07:00:20IHBJMBVLPI1418-70-99 19:37:00 Test Item Value Reference Range Interpretation [...] = NEGATIVE NONE BACTERIA) CT HEAD W/O [id number] 19:00:00 [facility] : 2000 Sex: F[address] [id number] IMAGING REPORTPatient Name: Savanna ALARCON of Service: [id number]: 20 Sex: F Order #: [id number] Room:ERSDOB: 2000 X-Ray Number: [id number] Record Number: [id number] Hospital Number: [id number] Physician: NANCY SAGASTUMEOrdering Physician: TALIB MACDONALD Head [...] HEATHER MCCABE JR 2020-07-16 18:57:54CT C-SPINE W/O [id number] 19:00:00 [facility] : 2000 Sex: F[address] [id number] IMAGING REPORTPatient Name: Savanna ALARCON of Service: [id number]: 20 Sex: F Order #: [id number] Room: ERSDOB: 2000 X-Ray Number: [id number] Record Number: [id number] Hospital Number: [id number] Physician: Kolby SAGASTUMEing Physician: HEDERMAN, AMYCT Head and Cervical Spine, 16:41 PMHistory: Trauma with injury. fallComparison: None.Technique: Unenhanced CT imaging of the head and cervical spine. This CTexam was performed using one or more of the following dose reductiontechniques: Automated exposure control, adjustment of the mA and/or KVaccording to patient size, or use of iterative reconstruction technique.Findings:Head:There is no acute intracranial abnormality. [...] code = LIPA) 124 U/L 23-300 LIVER [id number] 17:45:00 Test Item Value Reference Range Interpretation [...] (test code = ALTV) 27 U/L 13-69 [id number] 17:07:00 Test Item Value Reference Range Interpretation [...] code 3.4 K/UL 1.2-7.2 = NEUT) ISTAT [id number] 17:00:00 Test Item Value Reference Range Interpretation Comments ISTAT HCG (test <5.0 IU/L A value of l ess than or code = ISHCG) equal to <5 IU /L is considered NEGA TIVE A value between 5 IU/L and 25 IU/L is cons idered INDETERMINATE A value of >25 IU/L is con sidered POSITIVE ISTAT CHEM [id number] 16:50:00 Test Item Value Reference Range Interpretation [...] 14.6 G/DL 12.0-18.0 Notifi ed Nurse[facility] results outside of Reference Range s ISTANGAP (test code = 18 MMOL/L Notifi ed Nurse/MD of ISTANAU GRES) results outside of Reference Range s 2019NCoV (COVID-19) SARS coronavirus 2 RNA (Presence) in Respiratory specimen by IAN with probe detection (Other Lab)2020-06-02 14:39:00 Test Item Value Reference Range Interpretation Comments 2018NCoV (COVID-19) SARS Not Detected Not Detected coronavirus 2 RNA (Presence) in Respiratory specimen by IAN with probe detection (Other Lab) (test code = 42041-1) [facility][Q] S9 PLATELET [id number] 11:00:00 Test Item Value Reference Range Interpretation [...] IN LAB 05/13/2020 AT 1:22PMTESTING S CHDEULE MON-FRI 7AM-12N TESTING NOT DONE AFTER 12 NOONNO COLLECTION DATE RECEIVED. WE BLACKWELL VE USEDTHE DATE TH E SPECIMEN WAS RE CEIVED BY THISLABORATORY THE COLLECTION DATE . IF THISIS INCORREC T, PLEASE CONTACT CLIENT SERVICES.PHONE NUMBER: [phone] [place] [id number] (COVID-19) SARS coronavirus 2 RNA (Presence) in Respiratory specimen by IAN with probe detection (Other Lab)2020-04-22 11:48:00 Test Item Value Reference Range Interpretation Comments 2018NCoV (COVID-19) SARS Not Detected Not Detected coronavirus 2 RNA (Presence) in Respiratory specimen by IAN with probe detection (Other Lab) (test code = 56868-6) [facility]2019NCoV (COVID-19) SARS coronavirus 2 RNA (Presence) in Respiratory specimen by IAN with probe detection (Other Lab)2020-04-13 16:13:00 Test Item Value Reference Range Interpretation Comments 2018NCoV (COVID-19) SARS Not Detected Not Detected coronavirus 2 RNA (Presence) in Respiratory specimen by IAN with probe detection (Other Lab) (test code = 76164-6) [facility]usurine [id number] 10:46:00 Test Item Value Reference Range Interpretation Comments urine culture (test code = 630-4) [facility], urine [id number] 10:46:00 Test Item Value Reference Range Interpretation Comments bacteria, urine microscopy (test None seen None seen/Few code = 5769-5) [facility]usmucus on [id number] 10:46:00 Test Item Value Reference Range Interpretation Comments mucus on urinalysis (test code = Present 8247-9) [facility]ithelial cells, [id number] 10:46:00 Test Item Value Reference Range Interpretation Comments epithelial cells, urine (test code = >10 0-10 A 5787-7) [facility]usRBC, [id number] 10:46:00 Test Item Value Reference Range Interpretation Comments RBC, Urine (test code = 99769-7) 0-2 /hpf 0-2 [facility]usurinalysis, microscopic [id number] 10:46:00 Test Item Value Reference Range Interpretation Comments urinalysis, microscopic See below: examination (test code = 08175-4) [facility]usnitrate, [id number] 10:46:00 Test Item Value Reference Range Interpretation Comments nitrate, urine (test code = 96919-3) Negative Negative [facility]usurobilinogen, urine, semiquantitative (dipstick) 2020-04-06 10:46:00 Test Item Value Reference Range Interpretation Comments urobilinogen, urine, 0.2 (unknown 0.2-1.0 semiquantitative (dipstick) unit) (test code = 5818-0) [facility]ilirubin, [id number] 10:46:00 Test Item Value Reference Range Interpretation Comments bilirubin, urine (test code = Negative Negative 5770-3) [facility]usketones, urine, by test [id number] 10:46:00 Test Item Value Reference Range Interpretation Comments ketones, urine, by test strip (test Negative Negative code = 5797-6) [facility]usglucose, urine, [id number] 10:46:00 Test Item Value Reference Range Interpretation Comments glucose, urine, semiquantitative Negative Negative (test code = 5792-7) [facility]usprotein, urine, semiquantitative (dipstick)2020-04-06 10:46:00 Test Item Value Reference Range Interpretation Comments protein, urine, semiquantitative Negative Negative/Trace (dipstick) (test code = 1753-3) [facility]usleukocyte esterase, urine, by [id number] 10:46:00 Test Item Value Reference Range Interpretation Comments leukocyte esterase, urine, by Negative Negative dipstick (test code = 5799-2) [facility]usappearance, [id number] 10:46:00 Test Item Value Reference Range Interpretation Comments appearance, urine (test code = 5767-9) Cloudy Clear A [facility]usur[facility] [id number] 10:46:00 Test Item Value Reference Range Interpretation Comments urine color (test code = 5778-6) Yellow Yellow [facility]uspH, urine, [id number] 10:46:00 Test Item Value Reference Range Interpretation Comments pH, urine, semiquantitative 5.5 (unknown 5.0-7.5 (test code = 5803-2) unit) [facility]usspecific gravity, body [id number] 10:46:00 Test Item Value Reference Range Interpretation Comments specific gravity, body 1.022 (unknown unit) 1.005-1.030 fluid (test code = 2964-5) [facility]arrusWBC urine on [id number] 10:46:00 Test Item Value Reference Range Interpretation Comments WBC urine on microscopy (test code = 0-5 /hpf 0-5 1016) [facility]usbeta HCG, urine, [id number] 08:58:16 Test Item Value Reference Range Interpretation Comments beta HCG, urine, semiquantitative negative (test code = 2106-3) [facility]2019NCoV (COVID-19) SARS coronavirus 2 RNA (Presence) in Respiratory specimen by IAN with probe detection (Other Lab)2020-03-26 14:00:00 Test Item Value Reference Range Interpretation Comments 2018NCoV (COVID-19) SARS Not Detected Not Detected coronavirus 2 RNA (Presence) in Respiratory specimen by IAN with probe detection (Other Lab) (test code = 27164-3) [facility]usMicrobial identification kit, rapid strep method 2020-03-26 12:41:26 Test Item Value Reference Range Interpretation Comments Microbial identification kit, rapid negative strep method (test code = 44727-6) [facility]ushemoglobin, [id number] 12:41:26 Test Item Value Reference Range Interpretation Comments hemoglobin, blood (test code = 14.8 g/dL 718-7) [facility]2019NCoV (COVID-19) SARS coronavirus 2 RNA (Presence) in Respiratory specimen by IAN with probe detection (Other Lab)2020-02-19 09:08:00 Test Item Value Reference Range Interpretation Comments 2018NCoV (COVID-19) SARS Not Detected Not Detected coronavirus 2 RNA (Presence) in Respiratory specimen by IAN with probe detection (Other Lab) (test code = 89673-3) [facility]usUS PELVIS NON-OB [id number] 07:32:00[place] [id number] IMAGING REPORTPatient Name: Savanna ALARCON of Service: [id number]: 20 Sex: F Order #: [id number] [facility] 2000 X[facility] Number: [id number] Record Number: [id number] Hospital Number: [id number] Physician: ROSE BEAVERSOrdering Physician: MIKE WALKERTransabdominal pelvic [...] 01/18/2020 7:30 AMLegally authenticated by BIANCA ALVAREZ [id number] 20:53:00 Test Item Value Reference Range Interpretation [...] HCGIPC) HCG LOT # (test code = [id number] UHCGLOT) HCG EXPIRATION DATE (test code = UHCGEXP)
[2022-07-15] MEDS ORDERED: ONDANSETRON 4 MG/2 ML VIAL ONE (21:54)
[2022-07-15] MEDS ORDERED: NA CHLORIDE 0.9% 1,000 ML ONE (21:54)
[2022-07-15 22:37] LABS: SARS-COV-2 RT PCR NEGATIVE (NEGATIVE)
--- NOTE | 2022-07-15 22:59 | EDPHYS ---
Physician Documentation [facility] Name: Samantha Alarcon Age: 22 yrs Sex: Female : 2000 Arrival Date: 07/15/2022 Time: 21:03 Bed 17 Private MD: ED Physician Syd Marcos HPI: 07/15 21:22 This 22 yrs old Female presents to ER via Ambulatory with complaints of Fever, rn Headache, vomiting, diarrhea, runny nose. 21:22 The patient reports fever, that was measured at 101 degrees Fahrenheit. Onset: The rn symptoms/episode began/occurred yesterday. Modifying factors: Severity of symptoms: At their worst the symptoms were moderate in the emergency department the symptoms are unchanged. The patient has not experienced similar symptoms in the past. The patient has not recently seen a physician. Pt reports fever to 101, began yesterday, assoc with runny nose, cough, nausea/vomiting/diarrhea. No abd pain. No sob. + sick co-workers. . Historical: - Allergies: 21:11 Blue Dye; kl - Home Meds: 21:11 epinephrine pen [Active]; kl - Immunization history:: Adult Immunizations not up to date. - Social history:: Smoking status: Patient denies any tobacco usage or history of. - Family history:: not pertinent. - Hospitalizations: : No recent hospitalization is reported. ROS: 21:23 Constitutional: + fever Eyes: Negative for injury, pain, redness, and discharge, ENT: + rn runny nose Cardiovascular: Negative for chest pain, palpitations, and edema, Respiratory: + cough, neg for sob Abdomen/GI: Negative for abdominal pain, and constipation, MS/Extremity: Negative for injury and deformity, Skin: Negative for injury, rash, and discoloration, Neuro: Negative for numbness, tingling, and seizure. Exam: 21:23 Constitutional: This is a well developed, well nourished patient who is awake, alert, rn and in no acute distress. Head/Face: Normocephalic, atraumatic. ENT: NO pharyngeal swelling/stridor Neck: No Meningismus. Respiratory: No increased work of breathing, no retractions or nasal flaring. Abdomen/GI: soft, non-tender, no peritoneal signs Skin: Warm, dry MS/ Extremity: Pulses equal, no cyanosis. Neuro: Awake and alert, GCS 15 Vital Signs: 21:09 BP 127 / 78; Pulse 100; Resp 18; Temp 99.1; Pulse Ox 99% on R/A; Weight 96.16 kg (R); kl Height 5 ft. 3 in. (160.02 cm); Pain 6/10; 22:10 BP 124 / 78; Pulse 98; Resp 18 S; Pulse Ox 99% on R/A; ha1 23:10 BP 122 / 98; Pulse 90; Resp 18 S; Pulse Ox 99% on R/A; ha1 21:09 Body Mass Index 37.55 (96.16 kg, 160.02 cm) kl MDM: 21:03 Patient medically screened. rn 22:58 Differential diagnosis: viral Infection, bacterial infection, URI, gastroenteritis. rn Data reviewed: vital signs, nurses notes, lab test result(s), and as a result, I will discharge patient. Counseling: I had a detailed discussion with the patient and/or guardian regarding: the historical points, exam findings, and any diagnostic results supporting the discharge/admit diagnosis, lab results, the need for outpatient follow up, to return to the emergency department if symptoms worsen or persist or if there are any questions or concerns that arise at home. Response to treatment: the patient's symptoms have markedly improved after treatment, NO longer vomiting, and as a result, I will discharge patient. Special discussion: I discussed with the patient/guardian in detail that at this point there is no indication for admission to the hospital. It is understood, however, that if the symptoms persist or worsen the patient needs to return immediately for re-evaluation. Based on the history and exam findings, there is no indication for further emergent testing or inpatient evaluation. I discussed with the patient/guardian the need to see the primary care provider for further evaluation of the symptoms. 07/15 21:18 Order name: COVID-19/FLU A+B; Complete Time: 22:40 rn 07/15 21:18 Order name: Strep; Complete Time: 22:58 rn 07/15 21:18 Order name: IV Start; Complete Time: 21:49 rn 07/15 23:00 Order name: Throat Culture EDMS Administered Medications: 21:50 Drug: NS 0.9% 1000 ml Route: IV; Rate: 1000 ml; Site: right antecubital; ha1 21:52 Drug: Zofran (Ondansetron) 4 mg Route: IVP; Site: right antecubital; [facility] Disposition Summary: 07/15/22 22:58 Discharge Ordered Location: Home rn Problem: new rn Symptoms: have improved rn Condition: Stable rn Diagnosis - Fever, unspecified rn - Vomiting, unspecified rn - Diarrhea, unspecified rn - Dehydration rn Followup: rn - With: Private Physician - When: As needed - Reason: Recheck today's complaints, Re-evaluation by your physician Discharge Instructions: - Discharge Summary Sheet rn - Dehydration, Adult rn - Diarrhea, Adult rn - Fever, Adult rn - Nausea and Vomiting, Adult rn Forms: - Medication Reconciliation Form rn - Thank You Letter 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 Opioid Use rn - Work release form [facility] Prescriptions: - ondansetron 4 mg Oral - take 4 milligrams by SUBLINGUAL route every 8 hours; 15 tablet; Refills: 0, rn Product Selection Permitted Signatures: Dispatcher [employer] Milla Bo RN RN kl Nieto, Roman, MD MD rn Ayala, Heidy, RN RN [facility] Corrections: (The following items were deleted from the chart) 21:12 21:11 Allergies: No Known Allergies; kl kl 21:12 21:11 PMHx: Anemia; kl kl 21:12 21:11 PMHx: Ovarian cysts; kl kl 21:12 21:11 PMHx: Migraine; kl kl 21:12 21:11 PMHx: Kidney stone; kl kl
--- NOTE | 2022-07-15 22:59 | ER ---
Nurse's Notes [facility] Name: Samantha Aalrcon Age: 22 yrs Sex: Female : 2000 Arrival Date: 07/15/2022 Time: 21:03 Bed 17 Private MD: Diagnosis: Fever, unspecified;Vomiting, unspecified;Diarrhea, unspecified;Dehydration Presentation: 07/15 21:09 Chief complaint: Patient states: fever headache x x 1 day reports temp of 100.1 tylenol kl 650mg at 4 pm emesis x 5. Coronavirus screen: Vaccine status: Patient reports being unvaccinated. Ebola Screen: Patient negative for fever greater than or equal to 101.5 degrees Fahrenheit, and additional compatible Ebola Virus Disease symptoms. Initial Sepsis Screen: Does the patient meet any 2 criteria? No. Patient's initial sepsis screen is negative. Does the patient have a suspected source of infection? No. Patient's initial sepsis screen is negative. Risk Assessment: Do you want to hurt yourself or someone else? Patient reports no desire to harm self or others. 21:09 Method Of Arrival: Ambulatory 21:09 Acuity: BRYANT 3 23:30 Onset of symptoms was July 15, 2022. [facility] 07/16 01:33 Onset of symptoms was July 15, 2022. [facility] 01:35 Onset of symptoms was July 15, 2022. [facility] Triage Assessment: 07/15 21:12 Headache History: The patient has had previous headaches and this one is similar to previous episodes. General: Appears in no apparent distress. Behavior is calm, cooperative. Pain: Complains of pain in top of head and forehead Pain currently is 6 out of 10 on a pain scale. Pain began 1 day ago. Also complains of nausea, inability to work. Neuro: No deficits noted. Cardiovascular: No deficits noted. Respiratory: No deficits noted. GI: Reports diarrhea, intolerance of fluids, intolerance of food, vomiting. : No deficits noted. No signs and/or symptoms were reported regarding the genitourinary system. Derm: No deficits noted. No signs and/or symptoms reported regarding the dermatologic system. Musculoskeletal: No deficits noted. No signs and/or symptoms reported regarding the musculoskeletal system. Historical: - Allergies: 21:11 Blue Dye; kl - Home Meds: 21:11 epinephrine pen [Active]; kl - Immunization history:: Adult Immunizations not up to date. - Social history:: Smoking status: Patient denies any tobacco usage or history of. - Family history:: not pertinent. - Hospitalizations: : No recent hospitalization is reported. Screenin:14 [facility] ED Fall Risk Assessment (Adult) History of falling in the last 3 months, ha1 including since admission No falls in past 3 months (0 pts) Confusion or Disorientation No (0 pts) Intoxicated or Sedated No (0 pts) Impaired Gait No (0 pts) Mobility Assist Device Used No (0 pt) Altered Elimination No (0 pt). Abuse screen: Denies threats or abuse. Denies injuries from another. Nutritional screening: No deficits noted. 21:14 Tuberculosis screening: No symptoms or risk factors identified. ha1 Assessment: 21:24 General: Appears uncomfortable, Behavior is calm, cooperative. Pain: Complains of pain ha1 in forehead Pain does not radiate. Pain currently is 8 out of 10 on a pain scale. Quality of pain is described as throbbing, Is intermittent. Neuro: Level of Consciousness is awake, alert, obeys commands, Oriented to person, place, time, situation. Cardiovascular: Capillary refill < 3 seconds Patient's skin is warm and dry. Respiratory: Airway is patent Respiratory effort is even, unlabored, Respiratory pattern is regular, symmetrical, Breath sounds are clear bilaterally. Musculoskeletal: Circulation, motion, and sensation intact. Range of motion: intact in all extremities. 22:25 Reassessment: Patient and/or family updated on plan of care and expected duration. Pain ha1 level reassessed. Patient is alert, oriented x 3, equal unlabored respirations, skin warm/dry/pink. Patient states feeling better. Patient states symptoms have improved. 23:00 Reassessment: Patient and/or family updated on plan of care and expected duration. Pain ha1 level reassessed. Patient is alert, oriented x 3, equal unlabored respirations, skin warm/dry/pink. pt. reports burning sensation at the IV site. no redness, no swelling noticed at the IV site. notified charged nurse. IV disconnected. provided Ice pack. States " I feel better with the Ice". Vital Signs: 21:09 BP 127 / 78; Pulse 100; Resp 18; Temp 99.1; Pulse Ox 99% on R/A; Weight 96.16 kg (R); Height 5 ft. 3 in. (160.02 cm); Pain 6/10; 22:10 BP 124 / 78; Pulse 98; Resp 18 S; Pulse Ox 99% on R/A; ha1 23:10 BP 122 / 98; Pulse 90; Resp 18 S; Pulse Ox 99% on R/A; ha1 21:09 Body Mass Index 37.55 (96.16 kg, 160.02 cm) ED Course: 21:03 Patient arrived in ED. mr 21:03 Syd Marcos MD is Attending Physician. rn 21:11 Triage completed. kl 21:14 Arm band placed on right wrist. ha1 21:14 Patient has correct armband on for positive identification. Placed in gown. Bed in low ha1 position. Call light in reach. Side rails up X 1. 21:24 Malena Cox RN is Primary Nurse. ha1 21:49 Strep Sent. ha1 21:49 COVID-19/FLU A+B Sent. ha1 21:50 No provider procedures requiring assistance completed. Inserted saline lock: 20 gauge ha1 in right antecubital area, using aseptic technique. 23:30 IV discontinued, intact, bleeding controlled, No redness/swelling at site. Pressure ha1 dressing applied. Administered Medications: 21:50 Drug: NS 0.9% 1000 ml Route: IV; Rate: 1000 ml; Site: right antecubital; ha1 21:52 Drug: Zofran (Ondansetron) 4 mg Route: IVP; Site: right antecubital; ha1 Medication: 23:30 VIS not applicable for this client. ha1 Outcome: 22:58 Discharge ordered by . rn 23:30 Patient left the ED. ha1 23:30 Discharged to home ambulatory. ha1 23:30 Condition: stable 23:30 Discharge instructions given to patient, Instructed on discharge instructions, follow up and referral plans. medication usage, Demonstrated understanding of instructions, follow-up care, medications, Prescriptions given X 1. Signatures: Milla Corbett RN RN kl RiveraJade mr Syd Marcos MD MD rn Ayala, Heidy, RN RN ha1 Corrections: (The following items were deleted from the chart) 21:12 21:11 Allergies: No Known Allergies; [facility] 21:12 21:11 PMHx: Anemia; kl kl 21: 21:11 PMHx: Ovarian cysts; kl kl 21: 21:11 PMHx: Migraine; kl kl 21: 21:11 PMHx: Kidney stone; kl kl 07/16 07:59 07/15 23:00 Reassessment: pt. reports burning sensation at the IV site. no redness, no ha1 swelling noticed at the IV site. notified charged nurse. ha1
[2022-07-16 00:18] VITALS: BP 127/78; TEMP 99.1; O2SAT 99
== END 2022-07-15 23:30 | disposition home or self-care (01) ==
LOC: ER 20:55
DX: R50.9 Fever, unspecified (principal); E86.0 Dehydration; R11.10 Vomiting, unspecified; R19.7 Diarrhea, unspecified; Z20.822 Contact with and (suspected) exposure to COVID-19; Z91.048 Other nonmedicinal substance allergy status
CPT/HCPCS: 87070; 87081; 0240U; 96374; 99284; J7030; J2405